=== PATIENT | female | born 1970 | race Asian ===

== ENCOUNTER 2023-04-02 17:12 | Emergency (ER) | payer MEDICARE, MEDICAID, SELFPAY ==
[2023-04-02 17:43] VITALS: BP 112/72; PULSE 63; RESP 18; TEMP 36.1; O2SAT 99; BMI 25.2
--- NOTE | 2023-04-02 18:53 | ED.GENADULT ---
HPI - General Adult General Chief complaint: Laceration/Wound Stated complaint: left finger laceration Time Seen by Provider: 04/02/23 18:35 Source: patient Mode of arrival: ambulatory Limitations: no limitations History of Present Illness HPI narrative: 52-year-old female coming in today complaining of laceration that she sustained to her 2nd digit on the left hand last night. It occurred when she was using a saw. Unsure of her last tetanus shot. She can come in the last 24 hours she was hoping it would close on its own. Tetanus was updated in 2017. Related Data Home Medications Medication Instructions Recorded Confirmed carbidopa 25 mg-levodopa 100 mg 1 tab PO QID 04/02/23 04/02/23 tablet dicyclomine 10 mg capsule 10 mg PO Q6H PRN 04/02/23 04/02/23 ferrous sulfate 325 mg (65 mg 325 mg PO DAILY 04/02/23 04/02/23 iron) tablet,delayed release pantoprazole 40 mg tablet,delayed 40 mg PO DAILY 04/02/23 04/02/23 release sertraline 100 mg tablet 100 mg PO DAILY 04/02/23 04/02/23 Allergies Allergy/AdvReac Type Severity Reaction Status Date / Time methylphenidate Allergy Mild Verified 04/02/23 17:48 [From Ritalin] pemoline [From Cylert] Allergy Mild Vomiting Verified 04/02/23 17:48 haldol AdvReac Unknown parkinsons Uncoded 04/02/23 17:47 pt Review of Systems Status of ROS: Reports: 6 or more systems reviewed and unremarkable except as noted in History and below PFSH PFS Social History Smoking Status: Never smoker Do you use any of these nicotine containing products: None Second hand tobacco smoke exposure: Yes How often do you have a drink containing alcohol: monthly or less How many standard drinks containing alcohol do you have on a typical day: 1 or 2 How often do you have six or more drinks on one occasion: Never AUDIT-C Alcohol total score: 1 Non-prescribed substance use: denies use service: No Exam Narrative: Exam Narrative: Well-nourished well-developed patient in no acute distress. Baseline tremor. Alert and oriented x3. Answers questions appropriately. Patient speaks in full sentences without needing to catch her breath. HEENT: Normocephalic atraumatic. Pupils are equally round reactive to light. Extraocular muscles are intact. Conjunctivae are moist without any icterus noted. Moist mucous membranes. Extremities: Patient has a laceration to the dorsal surface of the pointer finger on the left-hand that crosses the PIP. Laceration goes through the epidermis through the subcutaneous tissue and she partially severed her extensor tendon over the PIP. It appears that about a 3rd of the tendon was severed. She does have complete range of motion with full flexion and extension of that finger with out difficulty. Const: Vital Signs, click to edit/add: Vital Signs - 24 hr 04/02/23 17:43 04/02/23 18:57 Temperature 97 F L 98.1 F Pulse Rate [Pulse Oximeter] 63 59 L Respiratory Rate 18 18 Blood Pressure [Ri ght Upper Arm] 112/72 Pulse Oximetry 99 98 Oxygen Delivery Me thod Room Air Room Air Course Course Hospital Course: A digital block was performed with lidocaine and the wound was explored, irrigated and clean. I did put in 1 suture with 4 0 Vicryl at the edge of her tendon to bring that 3rd of the tendon back together. Then we placed skin sutures with 3-0 Ethilon with great skin approximation and no complications. Vital Signs Vital signs: Initial Vital Signs Temperature 97 F L 04/02/23 17:43 Temperature Source Temporal Artery Scan 04/02/23 17:43 Pulse Rate 63 04/02/23 17:43 Respiratory Rate 18 04/02/23 17:43 Blood Pressure 112/72 04/02/23 17:43 Blood Pressure Mean 85 04/02/23 17:43 Blood Pressure Position Supine 04/02/23 17:43 Pulse Oximetry 99 04/02/23 17:43 Oxygen Delivery Method Room Air 04/02/23 17:43 Vital Signs Temperature 97 F L 04/02/23 17:43 Pulse Rate 63 04/02/23 17:43 Respiratory Rate 18 04/02/23 17:43 Blood Pressure 112/72 04/02/23 17:43 Pulse Oximetry 99 04/02/23 17:43 Oxygen Delivery Method Room Air 04/02/23 17:43 Temperature 98.1 F 04/02/23 18:57 Pulse Rate 59 L 04/02/23 18:57 Respiratory Rate 18 04/02/23 18:57 Blood Pressure 112/72 04/02/23 17:43 Pulse Oximetry 98 04/02/23 18:57 Oxygen Delivery Method Room Air 04/02/23 18:57 Medical Decision Making MDM Narrative Medical decision making narrative: 52-year-old female laceration to the finger. Sutured per above. Discussed wound hygiene, signs and symptoms of infection, reasons to return for follow-up and suture removal in approximately 1 week. Given the fact that the laceration occurred approximately 24 hours ago and it was indeed very deep, I did opt to put her on antibiotics at this time. Discharge Plan Discharge Clinical Impression: Laceration Patient Disposition: Home, Self-Care Condition: Improved Additional Instructions: Keep finger clean and dry. Okay to shower like you normally would, however do not soak the finger such as swimming or doing dishes. Watch for signs of infection which include redness of the finger or drainage of pus from the laceration. If this occurs follow-up with your doctor right away or return to the ER. Sutures should be removed in approximately 1 week-make an appointment with your primary care provider for suture removal. Wear finger splint or a bandage that in circles the whole finger and prevents bending at that joint at all times so that you do not rip out the sutures by accidentally bending your finger. Prescriptions: No Action sertraline 100 mg tablet 100 mg PO DAILY pantoprazole 40 mg tablet,delayed release (DR/EC) 40 mg PO DAILY ferrous sulfate 325 mg (65 mg iron) tablet,delayed release (DR/EC) 325 mg PO DAILY carbidopa-levodopa 25-100 mg tablet 1 tab PO QID dicyclomine 10 mg capsule 10 mg PO Q6H PRN Stand Alone Forms: [employer] Info Instructions
[2023-04-02 18:57] VITALS: PULSE 59; RESP 18; TEMP 36.7; O2SAT 98
--- NOTE | 2023-04-02 19:24 | ED.NURSE ---
last tetanus 06/23/2017.
--- NOTE | 2023-04-02 19:40 | ED.NURSE ---
wound was dressed with bacitracin, band aid and tube gauze. did give a finger splint and paper tape.
== END 2023-04-02 19:50 | disposition home or self-care (01) ==
PROVIDERS: Emergency Provider Family Medicine
DX: S61.211A Laceration without foreign body of left index finger without damage to nail, initial encounter (principal); W27.0XXA Contact with workbench tool, initial encounter
CPT/HCPCS: 12001; 99283; 99284

== ENCOUNTER 2024-02-02 17:42 | Emergency (ER) | payer MEDICARE, MEDICAID, SELFPAY ==
[2024-02-02 17:49] VITALS: BP 146/80; PULSE 72; RESP 18; TEMP 36.4; O2SAT 100; BMI 21.9
--- NOTE | 2024-02-02 18:22 | ED.EYEPROB ---
HPI - Eye Problem General Chief complaint: Eye Problems Stated complaint: eye complaint Time Seen by Provider: 02/02/24 17:47 History of Present Illness HPI Narrative: This 53-year-old female comes in with bilateral eye irritation, right greater than left. She states that she was using a hair gel a couple days ago and got some of it in her eyes. She does not report any other foreign object. She states that her eyes became more irritated the next morning. She states that her eyes feel better if she keeps her eyes closed. She is frequently rubbing her eyes. Related Data Home Medications ?Medication ?Instructions ?Recorded ?Confirmed carbidopa 25 mg-levodopa 100 mg 1 tab PO QID 04/02/23 04/02/23 tablet dicyclomine 10 mg capsule 10 mg PO Q6H PRN 04/02/23 04/02/23 ferrous sulfate 325 mg (65 mg 325 mg PO DAILY 04/02/23 04/02/23 iron) tablet,delayed release pantoprazole 40 mg tablet,delayed 40 mg PO DAILY 04/02/23 04/02/23 release sertraline 100 mg tablet 100 mg PO DAILY 04/02/23 04/02/23 Previous Rx's ?Medication ?Instructions ?Recorded ketorolac 0.4 % eye drops 1 drp ophthalmic (eye) QID #5 mL 02/02/24 polymyxin B sulfate 10,000 1 drp ophthalmic (eye) Q3H 7 days 02/02/24 unit-trimethoprim 1 mg/mL eye drops #10 mL Allergies Allergy/AdvReac Type Severity Reaction Status Date / Time methylphenidate Allergy Mild Verified 04/02/23 17:48 [From Ritalin] pemoline [From Cylert] Allergy Mild Vomiting Verified 04/02/23 17:48 haldol AdvReac Unknown parkinsons Uncoded 04/02/23 17:47 pt Review of Systems Status of ROS: Reports: 10 or more systems reviewed and unremarkable except as noted in History and below Narrative: Constitutional: No fevers, no weight gain or loss. Eyes: Tearing from both eyes. Eye pain that is worse when her eyes are open. HENT: No congestion, no sore throat, no ear pain. Cardiovascular: No chest pain, no palpitations. Respiratory: No shortness of breath, no wheezes, no cough. Gastrointestinal: No abdominal pain, no vomiting, no diarrhea. Genitourinary: No dysuria, no hematuria. Musculoskeletal: Normal range of motion. Skin: No rashes, no pruritis. Neurological: No dizziness, weakness, sensory change, speech change. Endo/Heme/Allergies: No bruising or bleeding. No polydipsia. Pysch: no suicidality, no anxiety, no insomnia. All other systems reviewed and are negative. [facility] Social History Smoking Status: Never smoker Do you use any of these nicotine containing products: None Second hand tobacco smoke exposure: Yes How often do you have a drink containing alcohol: monthly or less How many standard drinks containing alcohol do you have on a typical day: 1 or 2 How often do you have six or more drinks on one occasion: Never AUDIT-C Alcohol total score: 1 Non-prescribed substance use: denies use service: No Exam Narrative: Exam Narrative: Constitutional: Well-developed, well-nourished, no acute distress. HEENT: Normocephalic, atraumatic. Both eyes school air are injected, right greater than left. No purulent discharge. Neck: Normal range of motion. Nontender. Supple. Heart: Intact distal pulses. Lungs: No chest discomfort. No wheezes, rhonchi, or rales. Abdomen: Nontender. Back: Normal range of motion. Extremities: Normal range of motion. No injury. Skin: Intact. No rash. Warm. No erythema or pallor. Neurologic: No altered sensation. No weakness. Alert and oriented. Psychiatric: No suicidality. No anxiety or depression. No insomnia. Nursing notes and vitals signs are reviewed. Const: Vital Signs, click to edit/add: Vital Signs - 24 hr 02/02/24 17:49 Temperature 97.5 F L Pulse Rate [Pulse Oximeter] 72 Respiratory Rate 18 Blood Pressure [Ri ght Upper Arm] 146/80 H Pulse Oximetry 100 Oxygen Delivery Me thod Room Air Course Vital Signs Vital signs: Initial Vital Signs Temperature 97.5 F L 02/02/24 17:49 Temperature Source Temporal Artery Scan 02/02/24 17:49 Pulse Rate 72 02/02/24 17:49 Pulse Rhythm Regular 02/02/24 17:49 Respiratory Rate 18 02/02/24 17:49 Blood Pressure 146/80 H 02/02/24 17:49 Blood Pressure Mean 102 02/02/24 17:49 Blood Pressure Position Sitting 02/02/24 17:49 Pulse Oximetry 100 02/02/24 17:49 Oxygen Delivery Method Room Air 02/02/24 17:49 Vital Signs Temperature 97.5 F L 02/02/24 17:49 Pulse Rate 72 02/02/24 17:49 Respiratory Rate 18 02/02/24 17:49 Blood Pressure 146/80 H 02/02/24 17:49 Pulse Oximetry 100 02/02/24 17:49 Oxygen Delivery Method Room Air 02/02/24 17:49 Temperature 97.5 F L 02/02/24 17:49 Pulse Rate 72 02/02/24 17:49 Respiratory Rate 18 02/02/24 17:49 Blood Pressure 146/80 H 02/02/24 17:49 Pulse Oximetry 100 02/02/24 17:49 Oxygen Delivery Method Room Air 02/02/24 17:49 MDM - Eye Problem MDM Narrative Medical decision making narrative: This patient comes in with irritation to both eyes and states that she got some hair gel into her eyes a couple days ago. She is frequently rubbing her eyes. There is no purulent discharge. I did administer tetracaine for anesthesia and then did a eye exam of both eyes using magnification. There is no evidence of foreign object or obvious corneal ulceration. She is frequently rubbing her eyes and likely has some corneal abrasion secondary to that. I advised her to avoid this as much as possible and did prescribe Polytrim ophthalmic and ketorolac ophthalmic solutions. I advised her to follow-up with an eye clinic or eye physician if not improving or return if worsening. Discharge Plan Discharge Clinical Impression: Corneal abrasion Patient Disposition: Home, Self-Care Condition: Stable Additional Instructions: Use medications as prescribed. Avoid rubbing of the eyes. Follow-up with order management specialist or nurse educator if not improving or return if worsening. Prescriptions: New polymyxin B sulf-trimethoprim 10,000 unit- 1 mg/mL drops 1 drp ophthalmic (eye) Q3H 7 Days Qty: 10 0RF Rx Instructions: while awake; do not exceed 6 doses in 24 hours ketorolac 0.4 % drops 1 drp ophthalmic (eye) QID Qty: 5 0RF No Action sertraline 100 mg tablet 100 mg PO DAILY pantoprazole 40 mg tablet,delayed release (DR/EC) 40 mg PO DAILY ferrous sulfate 325 mg (65 mg iron) tablet,delayed release (DR/EC) 325 mg PO DAILY carbidopa-levodopa 25-100 mg tablet 1 tab PO QID dicyclomine 10 mg capsule 10 mg PO Q6H PRN Follow Up/Referrals: Provider,Not a Local [Primary Care Provider] - Stand Alone Forms: [employer] Info Instructions
== END 2024-02-02 18:39 | disposition home or self-care (01) ==
LOC: ED 18:29
PROVIDERS: Emergency Provider Emergency Medicine Emergency Medical Services
DX: S05.02XA Injury of conjunctiva and corneal abrasion without foreign body, left eye, initial encounter (principal); S05.01XA Injury of conjunctiva and corneal abrasion without foreign body, right eye, initial encounter
CPT/HCPCS: 99283; 99284

== ENCOUNTER 2025-03-24 09:52 | Emergency (ER) | payer MEDICARE, MEDICAID, SELFPAY ==
--- OUTSIDE RECORDS SUMMARY | 2025-02-14 15:45 | XMS_ITS | Encounter Summary ---
Author Organization [place] Address [facility] [place] [address] Care Team Providers Care Patient Registration Rep Name Role Phone Priti Morfin APRN RECORD RETRIEVAL SPECIALIST Primary Care Provide r Timothy Rice MD Unavailable Priti Morfin APRN RECORD RETRIEVAL SPECIALIST Unavailable [phone] Alvina Romano DO Unavailable Ashish Augustine MD Unavailable Priti Morfin APRN RECORD RETRIEVAL SPECIALIST Unavailable Naldo Alexander MD Unavailable Ashish Augustine MD Unavailable Morales Negrete MD [facility]available [facility] Un[facility] Reason for Visit * Reason Comments RECHECK Encounter Details Date Type Department Care Team (Late st Contact Info) Description 02/14/2025 3:45 PM CDT Office Visit [facility] [place] [address] [facility] 3[address] [place] [address] Ashish Augustine MD [address] [facility] [address] [place] [address] Parkinsonism, unspecified Parkinsonism type (H) (Primary Dx); Dorsalgia, unspecified Social History Tobacco Use Types Packs/Day Years Used Date Smoking Tobacco: Never Smokeless Tobacco: Never Alcohol Use Standard Drinks/Week Comments Not Currently 0 (1 standard drink = 0.6 oz pur e alcohol) rare Social Connection and Isolation Panel [NHANES] A nswer Date Recorded Frequency of Communication with Friends and Fami ly Not on file 01/15/2025 How often do you get together with friends or re latives? Twice a week 01/15/2025 Attends [employer] Services Not on file 01/15 Active Member of Clubs or Organizations Not on f ile 01/15/2025 Attends Club or Organization Meetings Not on mendez e 01/15/2025 Marital Status Not on file 01/15/2025 PHQ-2 Answer Date Recorded PHQ-2 Score 3 01/16/2025 [facility] - Occupational Stress Questionnaire Answer Date Recorded Do you feel stress - tense, restless, nervous, or anxious, or unable to sleep at night because your mind is troubled all the time - these days? To some extent 01/15/2025 Exercise Vital Sign Answer Date Recorde d On average, how many days pe r week do you engage in moderate to strenuous exercise (like a brisk walk)? 5 days 01/15/2025 On average, how many minutes do you engage in exercise at this level? 40 min 01/15/2025 Adolescent Education Answer Date Record ed Getting School Help Needed Not on file 04/21 Food Insecurity Answer Date Recorded Within the past 12 months, d id you worry that your food would run out before you got money to buy more? No 01/15/2025 Within the past 12 months, d id the food you bought just not last and you didn t have money to get more? No 01/15/2025 Housing Stability Answer Date Recorded Do you have housing? (Housin g is defined as stable permanent housing and does not include staying outside in a car, in a tent, in an abandoned building, in an overnight senior living, or couch-surfing.) Yes 01/15/2025 Are you worried about losing your housing? No 01/15/2025 Financial Resource Strain Answer Date R ecorded Within the past 12 months, h ave you or your family members you live with been unable to get utilities (heat, electricity) when it was really needed? No 01/15/2025 Transportation Needs Answer Date Record ed Within the past 12 months, h as lack of transportation kept you from medical appointments, getting your medicines, non-medical meetings or appointments, work, or from getting things that you need? No 01/15/2025 Interpersonal Safety Answer Date Record ed Do you feel physically and e motionally safe where you currently live? Yes 11/16/2023 Within the past 12 months, h ave you been hit, slapped, kicked or otherwise physically hurt by someone? No 11/16/2023 Within the past 12 months, h ave you been humiliated or emotionally abused in other ways by your partner or ex-partner? No 11/16/2023 Comments No Sex and Gender Information Value Date Recorded Sex Assigned at Female 05/05/2022 5:57 PM CDT Legal Sex Female 3:52 AM SEISMIC PROSPECTING OBSERVER Gender Identity Female 05/05/2022 5:57 PM CDT Sexual Orientation Don't know 10/25/2022 3: 34 PM CDT Sexual Orientation Pansexual 10/25/2022 3: 34 PM CDT Occupation Industry Job Start Date Job End Date Not on file Not on file Not on file Not on file documented as of this encounter Last Filed Vital Signs Vital Sign Reading Time Taken Comments Blood Pressure 118/74 02/14/2025 4:06 PM CDT Pulse 66 02/14/2025 4:06 PM CDT Temperature - - Respiratory Rate 12 02/14/2025 4:06 PM CDT Oxygen Saturation 98% 02/14/2025 4:06 PM CDT Inhaled Oxygen Concentration - - Weight 58.1 kg (128 lb) 02/14/2025 4:06 PM CDT Height 158.8 cm (5' 2.5) 02/14/2025 4:06 PM CDT Body Mass Index 23.04 02/14/2025 4:06 PM CDT documented in this encounter Patient Instructions * Patient Instructions* Arcelia Torres MD - 02/14/2025 3:45 PM CDT 1- We recommend that you continue to take Carbidopa/Levodopa 25-100 mg 1 tablet 6 times per day, every 2 hours. Please message us if you are taking more of this medication. 2- We will start you on a medication called Rasaligine 0.5 mg once daily for 2 weeks, then 1 mg once daily for 2 week. If you are tolerating medication at 1 mg, we will continue to 1 mg tablet once daily. Please avoid the Adderall while taking Rasagiline as there is a drug interaction with these two medications. documented in this encounter Progress Notes * Arceila Torres MD - 02/14/2025 3:45 PM CDT Department of Neurology Movement Disorders Division Return Patient Visit Patient: Ramiro Aguilera : 1970 Date of Visit: February 11, 2025 PCP: Priti Morfin APRN CNP Referring provider: Davide CC: PD follow up MsFan Jonju is a 54 year old right-handed female with history of narcolepsy with cataplexy who presents to movement disorder clinic for parkinsonism follow up. Last visit was 06/2024 at which time she reported good control of PD symptoms but still had wearing off tremor. PD meds were not changed at that time. Interval history: Main complaint: wants to talk about DBS for PD tremor control and dyskinesias. Feels internal and external tremors are worse when wearing off occurs. Sometimes has head tics and arm movements at end of a dose. These movements improve within 30 mins of a dose. Has been taking one tablet every 1.5-2 hours (first dose whenever wake up, times variable); takes it 6 times or more per day depending on how long away for during day with variable sleep schedule. Medication regimen recommended at last visit: 12PM 3PM 6PM 9PM QHS 2-3hrs after QHS CD/LD (25-100mg) 1 1 1 1 1 prn Sertraline (100mg) 1 Adderall XR (10mg) PRN (rarely) Sodium Oxybate 4mL 4mL PRN All others negative except as listed above. Pertinent movement disorders- specific ROS listed above.No significant medical diagnoses, hospitalizations, surgeries, or medications started since last visit. Past Medical History: Diagnosis Date Chronic gastritis GI recommends a repeat EGD 2021 to 2023. Depression Depressive disorder 2004 Neurologically Depressed not clinically depressed lack of dopamine H pylori ulcer 2003 treated wit ABX Intractable constipation Left ovarian cyst Low back pain Menorrhagia Narcolepsy Parkinson's disease Parkinson's disease (H) Scarring, keloid Supraventricular tachycardia 2007 inappropriate sinus tachycardia, sp ablation 2007, 2008 Syncope Past Surgical History: Procedure Laterality Date APPENDECTOMY OPEN with colectomy BACK SURGERY 10/2007 BREAST SURGERY 1998 CARDIAC SURGERY 2007 2 sinus tachycardia surgeries CHOLECYSTECTOMY 08/13/2008 CHOLECYSTECTOMY, LAPOROSCOPIC 2008 with stent placements COLONOSCOPY ESOPHAGOSCOPY, GASTROSCOPY, DUODENOSCOPY (EGD), COMBINED N/A 11/29/2021 Procedure: ESOPHAGOGASTRODUODENOSCOPY, WITH BIOPSY AND POLYPECTOMY; Surgeon: Naldo Alexander MD; Location: [facility] OR H ABLATION SVT 2007, 2009 Ablation Times 2 HEAD & NECK SURGERY 2000 Neck surgery infected muscle came up positive with staph. remove lymph node behind ear HERNIA REPAIR HYSTERECTOMY TOTAL ABDOMINAL 11/17/2009 with Removal of right ovary LAPAROTOMY EXPLORATORY 11/10/2011 Procedure:LAPAROTOMY EXPLORATORY; Exploratory Laparotomy, Lysis of Adhesions, Left Salpingo Oophorectomy, Revision of Scar, Abdominal Hernia Repair; Surgeon:LORENZO BEVERLY; Location:[facility] OR OTHER SURGICAL HISTORY 06/04/1999 Breast Surgery Mastectomy-for fibrocystic disease OTHER SURGICAL HISTORY Breast Surgery Reduction Procedure OTHER SURGICAL HISTORY 04/18/2005 Ear Surgery Eustachian Tube-[place] OTHER SURGICAL HISTORY 04/18/2001 ENT Surgical Result - Neck Mass OTHER SURGICAL HISTORY 07/09/2008 Total Abdominal Colectomy-Dr. Olga Arcos RESECTION ABDOMINAL PERINEAL 2007 colon removed SIGMOIDOSCOPY FLEXIBLE N/A 04/19/2021 Procedure: SIGMOIDOSCOPY, FLEXIBLE; Surgeon: Randy Cuellar MD; Location: [facility] OR SIGMOIDOSCOPY FLEXIBLE N/A 09/13/2021 Procedure: SIGMOIDOSCOPY, FLEXIBLE; Surgeon: Naldo Alexander MD; Location: [facility] OR [facility] BOWEL TO BOWEL ANASTOMOSIS 2009 Current Outpatient Medications: amphetamine-dextroamphetamine (ADDERALL XR) 10 MG 24 hr capsule, Take 1 capsule (10 mg) by mouth asneeded., Disp: 90 capsule, Rfl: 0 baclofen (LIORESAL) 20 MG tablet, Take 1 tablet (20 mg) by mouth 2 times daily., Disp: 90 tablet, Rfl: 3 carbidopa-levodopa (SINEMET) 25-100 MG tablet, Take 1 tablet by mouth 4 times daily., Disp: 360 tablet, Rfl: 3 dicyclomine (BENTYL) 10 MG capsule, Take 1 capsule (10 mg) by mouth 4 times daily as needed (abdominal pain) (Patient not taking: Reported on 01/16/2025), Disp: 360 capsule, Rfl: 4 estradiol (VAGIFEM) 10 MCG TABS vaginal tablet, Place 1 tablet (10 mcg) vaginally twice a week., Disp: 24 tablet, Rfl: 3 ferrous sulfate (FE TABS) 325 (65 Fe) MG EC tablet, Take 1 tablet (325 mg) by mouth daily, Disp: 90tablet, Rfl: 3 Shante, Zingiber officinalis, (SHANTE ROOT PO), Take by mouth., Disp: , Rfl: pantoprazole (PROTONIX) 40 MG EC tablet, Take 1 tablet (40 mg) by mouth daily., Disp: 90 tablet, Rfl: 3 sertraline (ZOLOFT) 100 MG tablet, Take 1 tablet (100 mg) by mouth daily., Disp: 90 tablet, Rfl: 3 SODIUM OXYBATE PO, 4mL at bedtime and 2mL after about 3 hrs, Disp: , Rfl: valACYclovir (VALTREX) 500 MG tablet, Take 1 tablet (500 mg) by mouth daily., Disp: 90 tablet, Rfl:3 Allergies Allergen Reactions Adhesive Tape Rash and Blisters Reaction from steri-strips and butterfly as well Hydroactive Dressings Rash Meperidine Anaphylaxis Tegaderm Transparent Dressing (Informational Only) Blisters Ciprofloxacin Swelling Lip swelling, arm and wrist pain Crabs [Crustaceans] Swelling Imitation crab Darvocet [Propoxyphene N-Apap] Nausea and Nausea and Vomiting A500 Tabs Can take with Zofran Demerol Pt is on MAOI Inhibitor Food Other (See Comments) Onion Migraine Haloperidol And Related [Haloperidol And Related] Parkinson's reaction Hay [Antihistamines, Chlorpheniramine-Type] Hydrocodone-Acetaminophen Liquid Adhesive Methylphenidate Nausea and Vomiting Other [No Clinical Screening - See Comments] Butterfly strips causes blistering and extreme itching Peaches [Charlton] Nausea and Vomiting Pemoline Nausea Percocet [Oxycodone-Acetaminophen] Nausea and Vomiting Can take with Zofran Propoxyphene Prunus Persica Nausea and Vomiting Ritalin [Methylphenidate Derivatives] Nausea Wound Dressing Adhesive Gum Gphgjt-Nnsllw-Aayz-Alcohol Family History Adopted: Yes Family history unknown: Yes Social History: She reports that she has never smoked. She has never used smokeless tobacco. She reports that she does not currently use alcohol. She reports current drug use. Drug: Marijuana. Parkinson's Disease Assessment: Part I 1.1 Cognitive impairment: 0: Normal: No cognitive impairment. 1.2 Hallucinations and psychosis: 0: Normal: No hallucinations or psychotic behaviour. 1.3 Depressed mood: 2: Mild: Depressed mood that is sustained over days, but without interference with normal activities and social interactions. 1.4 Anxious mood: 0: Normal: No anxious feelings. 1.5 Apathy: 3: Moderate: Apathy interferes with most activities and social interactions. 1.6 Features of DDS: 0: Normal: No problems present. 1.7 Sleep problems: 4: Severe: I usually do not sleep for most of the night. 1.8 Daytime sleepiness: 4: Severe: I often fall asleep when I should not. For example, while eatingor talking with other people. 1.9 Pain and other sensations: 4: Severe: These feelings stop me from doing things or being with other people. 1.10 Urinary problems: 0: Normal: No urine control problems. 1.11 Constipation problems: 1: Slight: I have been constipated. I use extra effort to move my bowels. However, this problem does not disturb my activities or my being comfortable. 1.12 Light headedness on standin: Normal: No dizzy or foggy feelings. 1.13 Fatigue: 4: Severe: Fatigue stops me from doing things or being with people. Total: , previous 12 Part II 12/30/2022 3:40 PM UPDRS EDL Scale 2.1 Speech 2 2.2 Salivation 0 2.3 Chew & Swallow 1 2.4 Eating 0 2.5 Dressing 0 2.6 Hygiene 0 2.7 Handwriting 0 2.8 Hobbies etc. 0 2.9 Turn in bed 0 2.10 Tremor 1 2.11 Stand from chair 0 2.12 Walking & Balance 1 2.13 Freezing 0 MDS-UPDRS II Total Score 5 PHYSICAL EXAM: BP 118/74 (BP Location: Right arm, Patient Position: Sitting, Cuff Size: Adult Regular) Pulse 66 Resp 12 Ht 1.588 m (5' 2.5) Wt 58.1 kg (128 lb) LMP (LMP Unknown) SpO2 98% BMI 23.04 kg/m?? NEURO: Last dose of medication 3:30 pm 07/12/2024 4:00 PM 02/14/2025 5:00 PM UPDRS Motor Scale Time: 16:20 17:02 Medication On On R Brain DBS: None None L Brain DBS: None None Dyskinesia (LID) No No Did LID interfere No No Speech 1 1 Facial Expression 0 1 Rigidity Neck 1 -- Rigidity RUE 1 0 Rigidity LUE 0 0 Rigidity RLE 0 0 Rigidity LLE 0 0 Finger Taps R 1 1 Finger Taps L 0 1 Hand Mvt R 1 1 Hand Mvt L 1 1 Pron-/Supinate R 0 0 Pron-/Supinate L 0 0 Toe Tap R 0 1 Toe Tap L 0 1 Leg Agility R 0 2 Leg Agility L 1 2 Arise From Chair 0 0 Gait 0 1 Gait Freezing 0 0 Postural Stability 0 0 Posture 0 0 Global Spont Mvt 1 1 Postural Tremor RUE 1 1 Postural Tremor LUE 1 1 Kinetic Tremor RUE 1 1 Kinetic Tremor LUE 1 2 Rest Tremor RUE 0 0 Rest Tremor LUE 0 0 Rest Tremor RLE 0 0 Rest Tremor LLE 0 0 Rest Tremor Lip/Jaw 1 1 Rest Tremor Constancy 1 1 Total Right 5 7 Total Left 4 8 Axial Total 3 Total 14 Patient declined testing neck rigidity Gait: reduced arm swing bilaterally but otherwise normal base gait, normal turn, no freezing and shuffling. ASSESSMENT: 54 year old right-handed female with history of narcolepsy with cataplexy who presents to movement disorder clinic for PD follow up. Today, patient wanted to discuss being evaluated for DBS surgery. On exam, there is little bradykinesias, mild postural and kinetic tremor. There is no rest tremor orpostural instability. Diagnosis of Parkinson's is in question given minimal progression of symptomsand current clinical presentation. Given her reported positive effect of Sinemet and no side effects, she wanted to continue taking this medication. We discussed starting low dose of Rasagiline in addition to current dose of Sinemet to try to provide further symptom relief. We urged her to not takemore than the maximum 6 times and to contact us via [email or web address] if she were to self titrate her medication in the future. Since she is also prescribed Adderall which has a reported side effect with Rasagiline, we spoke with her about this. She reported that she rarely takes Adderall for her ADHD and she said she would not take Adderall with Rasagiline. PLAN: - Continue to take Carbidopa/Levodopa 25-100 mg one tablet no more than 6 times per day - Started up titration Rasagiline 0.5 mg once daily Follow up in 6 months. Patient seen and examined with attending Dr. Davide Torres MD Movement Disorders Fellow * Ashish Augustine MD - 02/14/2025 3:45 PM CDT J reported worsening of end-of dose effects: internal tremor, tremor, and dyskinesias, leading to shortening of dose interval to sometimes as little as 2 hours, though with variation, and a total of about 6 tabs carbidopa-levodopa per day. The beginning of the appointment was during an ON phase, without those symptoms, and lasted past the next dose time without appearance of those sypmptoms, but J demonstrated the tremor and dyskinesias, the tremor as a cross- body flexed/abducted posture of theRUE, with trembling, and the latter as a series of head rotation jerks. I repeated Dr. Torres's exam, confirming it: Affect was as usual guarded though today more than usually so. At the time I did the e xam, there was still no unambiguous parkinsonism, and the tremor observed was in the bilateral UE, postural, and associated with a tight-appearing posture, not inconsistent with parkinsonism, but at least equally with essential, physiological, cocontraction tremor. J came to the appointment having concluded that deep brain stimulation surgery was the next step in treatment, and, understandably, being unfamiliar with the process, felt this was a straightforward matter. I explained that potentialDBS patients undergo a lengthy evaluation which doesn't always culminate in surgery, even in comparatively simple cases, and discussed at some length the fact that this case is not simple, since the symptoms and the disease course are not typical for ordinary Parkinson's, and that other neurologists who have seen her in the past have noted this as well. I emphasized that DBS does not generally have good outcomes for people whose parkinsonism is not typical, nor is the risk of complications usually justified in such cases. I also expressed concern about shortening the dose interval without consulting us on the grounds that, in Parkinson's, this approach to wearing-off, while effective in theshort term, could lead to escalating total daily levodopa dose, aggravating wearing-off and dyskinesias in the longer term. It did develop that her total daily dose, despite the shortened interval, was about 6 tabs per day, which seemed reassuring, and sustainable. We discussed possible supplementary medications, some of which she's tried in the past, including transdermal rotigotine, rasagiline,and entacapone. Some of these have been tried in the past, and it's my impression from the record, that in at least some cases, they were discontinued because they were no longer needed and Antonio was able to get along OK without them, rather than lack efficacy or side effects. Antonio recalled rotigotine as having caused some skin irritation, and also recalled having taken rasagiline at one time. I favoredentacapone, but Antonio preferred rasagiline, which does accomplish the goal of taking action in recognition of a real problem, but with a single dose per day, i.e. without the pill burden of entacapone, so we agreed on that plan. Given the presence among her listed medications of Adderall, which is problematic for rasagiline, we went back into the room and had a separate conversation about this. Antonio said she took Adderall infrequently, e.g. for extra energy in the evenings, could do without it, by substituting cafeinated drinks, and promised definitely not to take Adderall while on rasagiline. The appointment started late, ended later: time this date, with patient, reviewing records, and documenting: >0.75h. Ashish Augustine PhD, MD documented in this encounter Plan of Treatment Upcoming Encounters Date Type Department Care Team (Late st Contact Info) Description 07/18/2025 11:30 AM SEISMIC PROSPECTING OBSERVER Office Visit [facility] [address] [place] [phone] Ashish Augustine MD [address] [place] [id number] documented as of this encounter Visit Diagnoses Diagnosis Parkinsonism, unspecified Parkinsonism type (H)- Primary Dorsalgia, unspecified documented in this encounter Additional Health Concerns Assessment Noted Time PHQ-9 Depression Total Score: 13 025 9:44 PM CDT documented as of this encounter Care Teams Patient Registration Rep Relationship Specialty Start Date End Date Priti Morfin APRN CNP PCP - General 07/21/11 Timothy Rice MD Student in organized health care education/training program 05/08/15 Priti Morfin APRN RECORD RETRIEVAL SPECIALIST Nurse Practitioner Nurse Practitioner 08/19/16 [place] [address] [place] [address] Gastroenterology 04/30/19 Ashish Augustine MD [address] [facility] [address] [place], [place] [id number] Neurology 07/17/19 Priti Morfin APRN RECORD RETRIEVAL SPECIALIST Assigned PCP 08/30/20 Naldo Alexander MD [address] [facility] [address] [place], [place] [address] Gastroenterology 01/28/21 Ashish Augustine MD [address] [facility] [address] [place], [place] [phone] Assigned Neuroscience Provider 02/04/23 Morales Negrete MD [address] [place] [address] Hospitalist Internal Medicine - Pediatrics 02/26/24 Shanel Guadarrama PA-C [address] [facility] [address] [place] [address] Physician Country Manager Dermatology 03/18/24 documented as of this encounter
--- OUTSIDE RECORDS SUMMARY | 2025-03-24 09:56 | XMS_ITS | Encounter Summary ---
Author Organization [place] Address [facility] [place] [address] Care Team Providers Care Railroad Operator Name Role Phone Priti Morfin APRN ENROBING MACHINE FEEDER Primary Care Provide r Timothy Rice MD Unavailable [phone] Priti Morfin APRN ENROBING MACHINE FEEDER Unavailable Alvina Romano DO Unavailable [phone] Ashish Augustine MD Unavailable Priti Morfin APRN ENROBING MACHINE FEEDER Unavailable Naldo Alexander MD Unavailable Ashish Augustine MD Unavailable [phone] Morales Negrete MD Unavailable [phone] PavelShanel cuellar PA-C Unavailable Encounter Details Date Type Department Care Team (Late st Contact Info) Description 02/19/2025 [facility] Only [facility] Internal Medicine [place] [address] [facility] 4th [place] [address] Priti Morfin APRN ENROBING MACHINE FEEDER 909 [place] [address] Social History Tobacco Use Types Packs/Day Years [...] re latives? Twice a week 01/15/2025 Attends Mormonism Services Not on file 01/15 Active Member of Clubs or Organizations Not on f ile 01/15/2025 Attends Club or Organization Meetings Not on mendez e 01/15/2025 Marital Status Not on file 01/15/2025 PHQ-2 Answer Date Recorded PHQ-2 Score 3 01/16/2025 [facility] - Occupational Stress Questionnaire Answer Date Recorded [...] in an abandoned building, in an overnight mcc, or couch-surfing.) Yes 01/15/2025 Are you worried [...] PM CDT Legal Sex Female 3:52 AM TEAM ASSEMBLER Gender Identity Female 05/05/2022 5:57 PM CDT Sexual Orientation Don't know 10/25/2022 3: 34 PM CDT Sexual Orientation Pansexual 10/25/2022 3: 34 PM CDT Occupation Industry Job Start Date Job End Date Not on file Not on file Not on file Not on file documented as of this encounter Plan of Treatment Upcoming Encounters Date Type Department Care Team (Late st Contact Info) Description 07/18/2025 11:30 AM TEAM ASSEMBLER Office Visit [facility] [address] [place] [address] Ashish Augustine MD [address] [place] [id number] documented as of this encounter Visit Diagnoses Not on filedocumented in this encounter Additional Health Concerns Assessment Noted Time PHQ-9 Depression Total Score: 13 025 9:44 PM CDT documented as of this encounter Care Teams Railroad Operator Relationship Specialty Start Date End Date Priti Morfin APRN ENROBING MACHINE FEEDER PCP - General 07/21/11 Timothy Rice MD Student in organized health care education/training program 05/08/15 Priti Morfin APRN ENROBING MACHINE FEEDER Nurse Practitioner Nurse Practitioner 08/19/16 [place] [address] [place] [address] Gastroenterology 04/30/19 Ashish Augustine MD 420 [facility] 486 [place], [place] [address] Neurology 07/17/19 Priti Morfin APRN ENROBING MACHINE FEEDER Assigned PCP 08/30/20 Naldo Alexander MD 420 [facility] 486 [place] [address] Gastroenterology 01/28/21 Ashish Augustine MD 420 [facility] 486 [place] [address] Assigned Neuroscience Provider 02/04/23 Morales Negrete MD [address] [place] [address] Hospitalist Internal Medicine - Pediatrics 02/26/24 Shanel Guadarrama PA-C 420 [facility] 98 [place], [place] [address] Physician Pst Manager Dermatology 03/18/24 documented as of this encounter
--- OUTSIDE RECORDS SUMMARY | 2025-03-24 09:56 | XMS_ITS | Encounter Summary ---
Author Organization [place] Address [facility] [place] [address] Care Team Providers Care Glove Turner Name Role Phone Priti Morfin APRN OPERATION AGENT Primary Care Provide r Timothy Rice MD Unavailable Priti Morfin APRN OPERATION AGENT Unavailable Alvina Romano DO Unavailable Ashish Augustine MD Unavailable [phone] Priti Morfin APRN OPERATION AGENT Unavailable Naldo Alexander MD Unavailable Ashish Augustine MD Unavailable Morales Negrete MD Unavailable Pavelprotestant deaconess hospitalShanel zhao PA-C Unavailable Encounter Details Date Type Department Care Team (Late st Contact Info) Description 03/21/2025 [facility] Internal Medicine [place] 909 [facility] 4th [place] [address] Priti Morfin APRN OPERATION AGENT 909 [place] [address] Social History Tobacco Use Types [...] re latives? Twice a week 01/15/2025 Attends Alevism Services Not on file 01/15 Active Member of Clubs or Organizations Not on f ile 01/15/2025 Attends Club or Organization Meetings Not on mendez e 01/15/2025 Marital Status Not on file 01/15/2025 PHQ-2 Answer Date Recorded PHQ-2 Score 3 01/16/2025 [facility] - Occupational Stress Questionnaire Answer Date Recorded [...] in an abandoned building, in an overnight fpc, or couch-surfing.) Yes 01/15/2025 Are you worried [...] PM CDT Legal Sex Female 3:52 AM TOOL REPAIRER Gender Identity Female 05/05/2022 5:57 PM CDT [...] st Contact Info) Description 07/18/2025 11:30 AM TOOL REPAIRER Office Visit [facility] Neurology Clinic [address] [place] [address] Ashish Augustine MD [address] [place] [address] documented as of this encounter Visit Diagnoses Not on filedocumented in this encounter Additional Health Concerns Assessment Noted Time PHQ-9 Depression Total Score: 13 025 9:44 PM CDT documented as of this encounter Care Teams Glove Turner Relationship Specialty Start Date End Date Priti Morfin APRN OPERATION AGENT PCP - General 07/21/11 Timothy Rice MD Student in organized health care education/training program 05/08/15 Priti Morfin APRN OPERATION AGENT Nurse Practitioner Nurse Practitioner 08/19/16 [place] [address] [place] [address] Gastroenterology 04/30/19 Ashish Augustine MD 420 [facility] 486 [place], [place] [address] Neurology 07/17/19 Priti Morfin APRN OPERATION AGENT Assigned PCP 08/30/20 Naldo Alexander MD 420 [facility] [address] [place] [address] Gastroenterology 01/28/21 Ashish Augustine MD 420 [facility] [address] [place], [place] [address] Assigned Neuroscience Provider 02/04/23 Morales Negrete MD [address] [place] [address] Hospitalist Internal Medicine - Pediatrics 02/26/24 Shanel Guadarrama PA-C 420 [facility] 98 [place], [place] [address] Physician Safety Net Maker Dermatology 03/18/24 documented as of this encounter
--- OUTSIDE RECORDS SUMMARY | 2025-03-24 09:56 | XMS_ITS | Encounter Summary ---
Author Organization [place] Address [facility] [place] [address] Care Team Providers Care Chef Under Name Role Phone Priti Morfin APRN CLIENT SERVICE EXECUTIVE Primary Care Provide r Timothy Rice MD Unavailable Priti Morfin APRN CLIENT SERVICE EXECUTIVE Unavailable [phone] Alvina Romano DO Unavailable [phone] Ashish Augustine MD Unavailable [phone] Priti Morfin APRN CLIENT SERVICE EXECUTIVE Unavailable [phone] Naldo Alexander MD Unavailable [phone] Ashish Augustine MD Unavailable [phone] Morales Negrete MD Unavailable PavelShanel cuellar PA-C Unavailable [phone] Encounter Details Date Type Department Care Team (Late st Contact Info) Description 01/23/2025 MyC Medical Advice [facility] Internal Medicine [place] [address] [facility] 4th [place] [address] Risa Lyman, RN Social History Tobacco Use Types Packs/Day Years [...] re latives? Twice a week 01/15/2025 Attends Buddhist Services Not on file 01/15 Active Member of Clubs or Organizations Not on f ile 01/15/2025 Attends Club or Organization Meetings Not on mendez e 01/15/2025 Marital Status Not on file 01/15/2025 PHQ-2 Answer Date Recorded PHQ-2 Score 3 01/16/2025 [facility] - Occupational Stress Questionnaire Answer [...] Answer Date Recorded Do you have housing? (Yesenia g is defined as stable permanent housing and does not include staying outside in a car, in a tent, in an abandoned building, in an overnight fci, or couch-surfing.) Yes 01/15/2025 Are you worried [...] PM CDT Legal Sex Female 3:52 AM SCIENTIFIC WRITER Gender Identity Female 05/05/2022 5:57 PM CDT [...] st Contact Info) Description 07/18/2025 11:30 AM SCIENTIFIC WRITER Office Visit [facility] Neurology Clinic [address] [address] Ashish Augustine MD [address] [place] [phone] documented as of this encounter Visit Diagnoses Not on filedocumented in this encounter Additional Health Concerns Assessment Noted Time PHQ-9 Depression Total Score: 13 025 9:44 PM CDT documented as of this encounter Care Teams Chef Under Relationship Specialty Start Date End Date Priti Morfin APRN CLIENT SERVICE EXECUTIVE PCP - General 07/21/11 Timothy Rice MD Student in organized health care education/training program 05/08/15 Priti Morfin APRN CLIENT SERVICE EXECUTIVE Nurse Practitioner Nurse Practitioner 08/19/16 [place] [address] [facility] [address] Gastroenterology 04/30/19 Ashish Augustine MD 420 [facility] 486 [place] [address] MD Neurology 07/17/19 Priti Morfin APRN CLIENT SERVICE EXECUTIVE Assigned PCP 08/30/20 Nadlo Alexander MD [address] [address] Gastroenterology 01/28/21 Ashish Augustine MD [address] [address] Assigned Neuroscience Provider 02/04/23 Morales Negrete MD [address] [place] [address] Hospitalist Internal Medicine - Pediatrics 02/26/24 Shanel Guadarrama PA-C 420 [facility] 98 [place], [place] [address] Physician Big Data Developer Dermatology 03/18/24 documented as of this encounter
--- OUTSIDE RECORDS SUMMARY | 2025-03-24 09:56 | XMS_ITS | Encounter Summary ---
Author Organization [place] Address [facility]0 [facility] [place] [address] Care Team Providers Care Labor Gang Supervisor Name Role Phone Priti Morfin APRN PRESS SETTER Primary Care Provide r Timothy Rice MD Unavailable [phone] Priti Morfin APRN PRESS SETTER Unavailable [phone] Alvina Romano DO Unavailable Ashish Augustine MD Unavailable [phone] Priti Morfin APRN PRESS SETTER Unavailable Naldo Alexander MD Unavailable [phone] Ashish Augustine MD Unavailable [phone] Morales Negrete MD Unavailable [facility] Unavailable [phone] Encounter Details Date Type Department Care Team (Latest Contact Info) Description 02/14/2025 Travel Social History Tobacco Use Types Packs/Day Years [...] Answer Date Recorded PHQ-2 Score 3 01/16/2025 [facility] - Occupational Stress Questionnaire Answer Date [...] an abandoned building, in an overnight senior care, or couch-surfing.) Yes 01/15/2025 Are you worried [...] PM CDT Legal Sex Female 3:52 AM INSPECTOR TYPE Gender Identity Female 05/05/2022 5:57 PM CDT Sexual Orientation Don't know 10/25/2022 3: 34 PM CDT Sexual Orientation Pansexual 10/25/2022 3: 34 PM CDT Occupation Industry Job Start Date Job End Date Not on file Not on file Not on file Not on file documented as of this encounter Plan of Treatment Upcoming Encounters Date Type Department Care Team ([facility] st Contact Info) Description 07/18/2025 11:30 AM INSPECTOR TYPE Office Visit [facility] Neurology Clinic [address] [address] Ashish Augustine MD [address] [place] [address] [phone] documented as of this encounter Visit Diagnoses Not on filedocumented in this encounter Additional Health Concerns Assessment Noted Time PHQ-9 Depression Total Score: 13 025 9:44 PM CDT documented as of this encounter Care Teams Labor Gang Supervisor Relationship Specialty Start Date End Date Priti Morfin APRN PRESS SETTER PCP - General 07/21/11 Timothy Rice MD Student in organized health care education/training program 05/08/15 Priti Morfin APRN PRESS SETTER Nurse Practitioner Nurse Practitioner 08/19/16 [place] [address] [place] [address] Gastroenterology 04/30/19 Ashish Augustine MD 420 [facility] 486 [place] [address] MD Neurology 07/17/19 Priti Morfin APRN PRESS SETTER Assigned PCP 08/30/20 Naldo Alexander MD 420 [facility] 486 [place], [place] [address] Gastroenterology 01/28/21 Ashish Augustine MD [address] [place] [address] 486 [place], [place] [address] Assigned Neuroscience Provider 02/04/23 Morales Negrete MD [address] [place], [place] [address] Hospitalist Internal Medicine - Pediatrics 02/26/24 Shanel Guadarrama PA-C 420 [facility] 98 [place], [place] [address] Physician Concrete Paving Machine Operator Dermatology 03/18/24 documented as of this encounter
--- OUTSIDE RECORDS SUMMARY | 2025-03-24 09:56 | XMS_ITS | Encounter Summary ---
Author Organization [place] Address [address] [place] [address]. [place] [address] Care Team Providers Care Applications Programmer Analyst Name Role Phone Pirti Morfin APRN UNDER CUTTER Primary Care Provide r Timothy Rice MD Unavailable [phone] Priti Morfin APRN UNDER CUTTER Unavailable Alvina Romano DO Unavailable Ashish Augustine MD Unavailable Priti Morfin APRN UNDER CUTTER Unavailable Naldo Alexander MD Unavailable Ashish Augustine MD Unavailable [phone] Morales Negrete MD Unavailable [facility] Unavailable [phone] Reason for Visit * Reason Onset Date Comments Medication Question 01/22/2025 Call Back 01/22/2025 Encounter Details Date Type Department Care Team (Late st Contact Info) Description 01/22/2025 Telephone [facility] Internal Medicine [place] 909 [facility] 4th [place] [address] Priti Morfin APRN UNDER CUTTER 909 [place] [address] Medication Question; Call Back Social History Tobacco Use Types Packs/Day Years [...] re latives? Twice a week 01/15/2025 Attends Adventism Services Not on file 01/15 Active Member of Clubs or Organizations Not on f ile 01/15/2025 Attends Club or Organization Meetings Not on mendez e 01/15/2025 Marital Status Not on file 01/15/2025 PHQ-2 Answer Date Recorded PHQ-2 Score 3 01/16/2025 [facility] - Occupational [...] in an abandoned building, in an overnight half-way, or couch-surfing.) Yes 01/15/2025 Are you worried [...] PM CDT Legal Sex Female 3:52 AM BEHAVIORAL HEALTH PROFESSIONAL Gender Identity Female 05/05/2022 5:57 PM CDT Sexual Orientation Don't know 10/25/2022 3: 34 PM CDT Sexual Orientation Pansexual 10/25/2022 3: 34 PM CDT Occupation Industry Job Start Date Job End Date Not on file Not on file Not on file Not on file documented as of this encounter Miscellaneous Notes * Telephone Encounter - Risa Lyman RN - 01/23/2025 10:40 AM CDT I need to verify this with the pt before responding to them. I sent Ibetor message to the pt. * Telephone Encounter - Brenda Juárez - 01/22/2025 2:19 PM CDT Health Call Center Phone Message May a detailed message be left on voicemail: no Reason for Call: Other: [facility] is requesting a call back to discuss all active prescriptions prescribed by from Priti. Please review and call back to discuss at [phone]. Action Taken: Other: PCC Travel Screening: Not Applicable Date of Service: documented in this encounter Plan of Treatment Upcoming Encounters Date Type Department Care Team (Late st Contact Info) Description 07/18/2025 11:30 AM BEHAVIORAL HEALTH PROFESSIONAL Office Visit [facility] Neurology Clinic [address] 3rd [place] [address] Ashish Augustine MD [address] [address] documented as of this encounter Visit Diagnoses Not on filedocumented in this encounter Additional Health Concerns Assessment Noted Time PHQ-9 Depression Total Score: 13 025 9:44 PM CDT documented as of this encounter Care Teams Applications Programmer Analyst Relationship Specialty Start Date End Date Priti Morfin APRN UNDER CUTTER PCP - General 07/21/11 Timothy Rice MD Student in organized health care education/training program 05/08/15 Priti Morfin APRN UNDER CUTTER Nurse Practitioner Nurse Practitioner 08/19/16 [place] [address] [place] [address] Gastroenterology 04/30/19 Ashish Augustine MD [address] [address] Neurology 07/17/19 Priti Morfin APRN UNDER CUTTER Assigned PCP 08/30/20 Naldo Alexander MD 420 [facility] 486 [place] [address] Gastroenterology 01/28/21 Ashish Augustine MD 420 [facility] 486 [place] [address] Assigned Neuroscience Provider 02/04/23 Morales Negrete MD [address] [place] [address] [address] [place] [address] Hospitalist Internal Medicine - Pediatrics 02/26/24 Shanel Guadarrama PA-C 420 [facility] 98 [place] [address] Physician Band Splicer Dermatology 03/18/24 documented as of this encounter
--- OUTSIDE RECORDS SUMMARY | 2025-03-24 09:56 | XMS_ITS | Encounter Summary ---
Author Organization [place] Address formerly [facility]0 [facility] [place] [address] Care Team Providers Care Fence Maker Name Role Phone Priti Morfin APRN MECHANIC CHIEF Primary Care Provide r Timothy Rice MD Unavailable Priti Morfin APRN MECHANIC CHIEF Unavailable Alvina Romano DO Unavailable Ashish Augustine MD Unavailable Priti Morfin APRN MECHANIC CHIEF Unavailable Naldo Alexander MD Unavailable Ashish Augustine MD Unavailable [phone] Morales Negrete MD Unavailable [phone] Shanel Guadarrama PA-C Unavailable [phone] Encounter Details Date Type Department Care Team (Late st Contact Info) Description 03/21/2025 MyC Medical Advice [facility] Neurology Clinic [place] 909 [facility] 3rd [place] [address] Ashish Augustine MD [address] [place] [address] 486 [place] [address] Social History Tobacco Use Types [...] re latives? Twice a week 01/15/2025 Attends Adventist Services Not on file 01/15 Active Member of Clubs or Organizations Not on f ile 01/15/2025 Attends Club or Organization Meetings Not on mendez e 01/15/2025 Marital Status Not on file 01/15/2025 PHQ-2 Answer Date Recorded PHQ-2 Score 3 01/16/2025 [facility] ional Health - Occupational [...] in an abandoned building, in an overnight long term, or couch-surfing.) Yes 01/15/2025 Are you worried [...] PM CDT Legal Sex Female 3:52 AM GLASS CHECKER Gender Identity Female 05/05/2022 5:57 PM CDT [...] st Contact Info) Description 07/18/2025 11:30 AM GLASS CHECKER Office Visit [facility] Neurology Clinic [address] [place] [address] Ashish Augustine MD [address] [place] [phone] documented as of this encounter Visit Diagnoses Not on filedocumented in this encounter Additional Health Concerns Assessment Noted Time PHQ-9 Depression Total Score: 13 025 9:44 PM CDT documented as of this encounter Care Teams Fence Maker Relationship Specialty Start Date End Date Priti Morfin APRN MECHANIC CHIEF PCP - General 07/21/11 Timothy Rice MD Student in organized health care education/training program 05/08/15 Priti Morfin APRN MECHANIC CHIEF Nurse Practitioner Nurse Practitioner 08/19/16 [place] [address] [place] [address] Gastroenterology 04/30/19 Ashish Augustine MD 420 [facility] 486 [place], [place] [address] Neurology 07/17/19 Priti Morfin APRN MECHANIC CHIEF Assigned PCP 08/30/20 Naldo Alexander MD [address] [place] [address] 486 [place] [address] Gastroenterology 01/28/21 Ashish Augustine MD [address] [place] [address] 486 [place] [address] Assigned Neuroscience Provider 02/04/23 Morales Negrete MD [address] [place] [address] Hospitalist Internal Medicine - Pediatrics 02/26/24 Shanel Guadarrama PA-C 420 [facility] 98 [place] [address] Physician Dust Brush Assembler Dermatology 03/18/24 documented as of this encounter
--- OUTSIDE RECORDS SUMMARY | 2025-03-24 09:57 | XMS_ITS | Clinical Summary ---
Author Organization [facility] Address [address] [place] [address] Care Team Providers Care Design Drafter Name Role Phone Priti Morfin HEAVY EQUIPMENT SALES ASSOCIATE Primary Care Provider [phone] Allergies Active Allergy Reactions Criticality Noted Date Comments Pemoline 12/13/2007 Propoxyphene-Acetaminophe n Nausea And Vomiting 12/13/2007 Meperidine Anaphylaxis 12/13/2007 Haloperidol Other - Describe In Comment Field 06/23/2017 Dopamine cezar Oxycodone-Acetaminophen Nausea And Vomiting Methylphenidate Analogues Nausea And Vomiting 0 12/13/2007 Adhesive 11/28/2010 Medications CARBIDOPA-LEVO DOPA 25 MG-100 MG HALF TAB Take half tablet every two hours as directed Active AZILECT 1 MG TAB take 1 tablet (1 mg) by oral route once daily Active IBUPROFEN 800 MG TAB take 1 tablet (800 mg) by oral route 3 times per day with food Active ONDANSETRON 4 MG TAB, RAPID DISSOLVE take 2 tablets (8 mg) and place on top of the tongue where it will dissolve, then swallow by oral route every 8 hours for 2 days 15 tablets 0 9 Active acetaminophen- codeine, 300-30 mg, (TYLENOL #3) 300-30 mg tablet Take 1-2 tablets by mouth every 4 hours if needed for Pain. Max acetaminophen dose: 4000mg in 24 hrs. 15 tablet 0 0 Active cholecalcifero l (VITAMIN D) 2,000 unit capsule Take 1 capsule by mouth 2 times daily. 1 Active gabapentin (NEURONTIN) 300 mg capsule Take 600 mg by mouth 3 times daily. Active FERROUS FUMARATE/DOCUS ATE NA (IRON ORAL) Take 324 mg by mouth 2 times daily. 1 Active SODIUM OXYBATE (XYREM ORAL) Take 225 g by mouth at bedtime. 1 Active Active Problems Problem Noted Date Diagnosed Date Cholecystitis 08/11/2008 S/P colectomy 08/11/2008 Intractable constipation 05/10/2008 Overview (05/10/2008): Rule out early bowel obstruction Paralysis agitans 12/25/2007 Lumbago 12/25/2007 Depressive disorder, not elsewhere classified Immunizations Immunization Administration Dates Next Due Tdap 06/23/2017 Social History Tobacco Use Types Packs/Day Years Used Date Smoking Tobacco: Never Assessed Comments No Sex and Gender Information Value Date Recorded Sex Assigned at Not on file Legal Sex Female 7:28 AM RECREATION PROFESSOR Gender Identity Not on file Sexual Orientation Not on file Obstetrics History Last Filed Vital Signs Vital Sign Reading Time Taken Comments Blood Pressure 141/83 06/23/2017 6:58 PM RECREATION PROFESSOR Pulse 64 06/23/2017 6:58 PM RECREATION PROFESSOR Temperature 36.8 C (98.3 F) 06/23/2017 6:58 PM RECREATION PROFESSOR Respiratory Rate 16 06/23/2017 6:58 PM RECREATION PROFESSOR Oxygen Saturation 98% 06/23/2017 6:58 PM RECREATION PROFESSOR Inhaled Oxygen Concentration - - Weight 63.5 kg (140 lb) 06/23/2017 6:58 PM RECREATION PROFESSOR Height 160 cm (5' 3) 06/23/2017 6:58 PM RECREATION PROFESSOR Body Mass Index 24.8 06/23/2017 6:58 PM RECREATION PROFESSOR Plan of Treatment Health Maintenance Due Date Last Done Comments Depression screening for age 12+ 1982 HIV for age 15-65 1985 BMI (ht and wt on same day) for age 18+ 1988 Hepatitis C screening for age 18-79 1988 Hepatitis B series for 19+ ( 1 of 3 - 19+ 3-dose series) 1989 Pap test for age 21-65 12/09/1991 Colonoscopy through age 75 12/09/2015 Lipids for age 45-75 12/09/2015 Mammogram for age 45-75 12/09/2015 Pneumococcal series for age 50+ (1 of 1 - PCV) 021 Zoster (shingles) series for age 50+ (1 of 2) 12/09/19 21 COVID-19 vaccine series (1 - 2023- season) 4 Influenza Vaccine (#1) 2025 Tetanus booster 06/23/2027 06/23/2017 Medical Devices Implanted Type Area School Photographer Device Identifier Shelf Expiration Date Model / Serial / Lot [id number] hips Canclls 1.0-9.5mm Strl Freeze Dried [[id number]] Implanted:Qty: 1 on 12/25/2007 at [facility] Explanted:at [facility] (Quantity not on file) Bone Implants Spine Allosource 07/10/2012 [id number] / [id number] / [id number] one Canclls Crushed 30cc [[id number]] Implanted:Qty: 1 on 12/25/2007 at [facility] Explanted:at [facility] (Quantity not on file) Spine Allosource 07/02/2012 [id number] / [id number] / [id number] Precision 16x26 Fz [[id number]] Implanted:Qty: 1 on 12/25/2007 at [facility] Explanted:at [facility] (Quantity not on file) Spine [employer] 08/30/2011 [id number] / [id number] / Kit Infuse Sm - [id number] Implanted:Qty: 1 on 12/25/2007 at [facility] Spine SOFAMOR DANEK [id number]# / / [id number] B Screw Legacy 5.5x40 Titnm M/A [id number] - [id number] Implanted:Qty: 2 on 12/25/2007 at [facility] Spine SOFAMOR DANEK [id number]# / / Screw Legacy 6.5x35 Titnm M/A [id number] - [id number] Implanted:Qty: 2 on 12/25/2007 at [facility] Spine SOFAMOR DANEK [id number]# / / Zana 5.5x40 Prebent Cdh - [id number] Implanted:Qty: 2 on 12/25/2007 at [facility] Spine SOFAMOR DANEK [id number]# / / Screw Set Break-Off Hex Maishams - [id number] Implanted:Qty: 4 on 12/25/2007 at [facility] Spine SOFAMOR DANEK [id number]# / / Insurance MEDICARE PART A HB ONLY MEDICARE PART B HB ONLY MEDICARE PB ONLY [facility] Advance Directives * Full Code (Latest Code Status on File) Date Activated Date Inactivated Comments 08/13/2008 6:55 PM 08/14/2008 5:00 PM * Full Code Date Activated Date Inactivated Comments 08/13/2008 1:36 PM 08/13/2008 6:55 PM * Full Code Date Activated Date Inactivated Comments 08/11/2008 8:34 PM 08/13/2008 1:36 PM * Full Code Date Activated Date Inactivated Comments 07/09/2008 9:03 PM 07/17/2008 9:20 PM * Full Code Date Activated Date Inactivated Comments 07/09/2008 2:15 PM 07/09/2008 9:03 PM Care Teams Design Drafter Relationship Specialty Start Date End Date Priti Morfin NP PCP - General 05/09/08
--- OUTSIDE RECORDS SUMMARY | 2025-03-24 09:57 | XMS_ITS | Encounter Summary ---
Author Organization [facility] Address [address] [place] [address]. [place] [address] Care Team Providers Care College Tutor Name Role Phone Priti Morfin APRN MANAGER STATISTICAL PROGRAMMING Primary Care Provide r Timothy Rice MD Unavailable Prince Simpson MD, Kathleen Unavailable Unavailab Priti Reddy APRN MANAGER STATISTICAL PROGRAMMING Unavailable [phone] Alvina Romano DO Unavailable [phone] Ashish Augustine MD Unavailable [phone] Ashish Augustine MD Unavailable Priti Morfin APRN MANAGER STATISTICAL PROGRAMMING Unavailable [phone] Naldo Aleaxnder MD Unavailable [phone] Naldo Alexander MD Unavailable [phone] Daniel Roberto MD Unavailable [phone] Ashish Augustine MD Unavailable Morales Negrete MD Unavailable [phone] Shanel Guadarrama PA-C Unavailable [phone] Encounter Details Date Type Department Care Team (Late st Contact Info) Description 06/10/2022 [facility] [address] [place] [address] Jolene Parrish CMA Social History Tobacco Use Types Packs/Day Years Used Date Smoking Tobacco: Never Smokeless Tobacco: Former Alcohol Use Standard Drinks/Week Comments Yes 0 (1 standard drink = 0.6 oz pur e alcohol) rare PHQ-2 Answer Date Recorded PHQ-2 Score 0 01/26/2021 Comments No Sex and Gender Information Value Date Recorded Sex Assigned at Female 05/05/2022 5:57 PM CDT Legal Sex Female 3:52 AM SPEECH PATHOLOGY ASSISTANT Gender Identity Female 05/05/2022 5:57 PM CDT Sexual Orientation Don't know 10/25/2022 3: 34 PM CDT Sexual Orientation Pansexual 10/25/2022 3: 34 PM CDT Occupation Industry Job Start Date Job End Date Not on file Not on file Not on file Not on file COVID-19 Exposure Response Date Recorded In the last 10 days, have yo u been in contact with someone who was confirmed or suspected to have Coronavirus/COVID-19? No / Unsure 06/13/2022 12:17 PM SPEECH PATHOLOGY ASSISTANT documented as of this encounter Plan of Treatment Upcoming Encounters Date Type Department Care Team (Late st Contact Info) Description 07/18/2025 11:30 AM SPEECH PATHOLOGY ASSISTANT Office Visit [facility] [address] [place] [address] Ashish Augustine MD [address] [place] [address] documented as of this encounter Visit Diagnoses Not on filedocumented in this encounter Additional Health Concerns Assessment Noted Time PHQ-9 Depression Total Score: 6 03/26/20 19 6:35 PM CDT documented as of this encounter Care Teams College Tutor Relationship Specialty Start Date End Date Priti Morfin APRN MANAGER STATISTICAL PROGRAMMING PCP - General 07/21/11 Timothy Rice MD Student in organized health care education/training program 05/08/15 Jessica Morrison MD Internal Medicine 07/08/16 09/21/23 Priti Morfin APRN MANAGER STATISTICAL PROGRAMMING Nurse Practitioner Nurse Practitioner 08/19/16 [place] [address] [place] [address] Gastroenterology 04/30/19 Ashish Augustine MD [address] [facility] [address] [place] [address] Neurology 07/17/19 Ashish Augustine MD [address] [facility] [address] [place] [address] Assigned Neuroscience Provider 05/22/20 10/28/22 Priti Morfin APRN MANAGER STATISTICAL PROGRAMMING Assigned PCP 08/30/20 Naldo Alexander MD [address] [facility] [address] [place] [address] Gastroenterology 01/28/21 Naldo Alexander MD [address] [facility] [address] [place] [address] Assigned Gastroenterology Provider 05/09/21 05/21/24 Daniel Roberto MD [address] [facility] [address] [place] [address] Assigned Surgical Provider 12/10/22 06/21/24 Ashish Augustine MD 420 [facility] [address] [place], [place] [address] Assigned Neuroscience Provider 02/04/23 Morales Negrete MD [address] [facility] [address] [place], [place] [address] Hospitalist Internal Medicine - Pediatrics 02/26/24 Shanel Guadarrama PA-C 420 [facility] 98 [place], [place] [address] Physician Product Introduction Manager Dermatology 03/18/24 documented as of this encounter
--- OUTSIDE RECORDS SUMMARY | 2025-03-24 09:57 | XMS_ITS | Encounter Summary ---
Author Organization [facility] Address [address] [place] [address]. [place] [address] Care Team Providers Care Urologic Nurse Name Role Phone Priti Morfin OPTIMIZATION MANAGER LONG LINES OPERATOR Primary Care Provide r Timothy Rice MD Unavailable [phone] Prince Simpson MD, Kathleen Unavailable Unavailab Priti Morfin APRN LONG LINES OPERATOR Unavailable [phone] Alvina Romano DO Unavailable [phone] Ashish Augustine MD Unavailable sAhish Augustine MD Unavailable Priti Morfin APRN LONG LINES OPERATOR Unavailable [phone] Naldo Alexander MD Unavailable [phone] Naldo Alexander MD Unavailable [phone] Daniel Roberto MD Unavailable [phone] Ashish Augustine MD Unavailable [phone] Morales Negrete MD Unavailable [phone] Shanel Guadarrama PA-C Unavailable [phone] Encounter Details Date Type Department Care Team (Late st Contact Info) Description 10/26/2022 [facility] Internal Medicine [place] [id number] [facility] [address] [place] [address] Priti Morfin OPTIMIZATION MANAGER LONG LINES OPERATOR [address] [place] [address] Social History Tobacco Use Types Packs/Day Years Used Date Smoking Tobacco: Never Smokeless Tobacco: Former Alcohol Use Standard Drinks/Week Comments Yes 0 (1 standard drink = 0.6 oz pur e alcohol) rare PHQ-2 Answer Date Recorded PHQ-2 Score 0 01/26/2021 Comments No Sex and Gender Information Value Date Recorded Sex Assigned at Female 05/05/2022 5:57 PM CDT Legal Sex Female 3:52 AM COMFORT STATION ATTENDANT Gender Identity Female 05/05/2022 5:57 PM CDT [...] suspected to have Coronavirus/COVID-19? No / Unsure 10/25/2022 3:16 PM CDT documented as of this encounter Plan of Treatment Upcoming Encounters Date Type Department Care Team (Late st Contact Info) Description 07/18/2025 11:30 AM COMFORT STATION ATTENDANT Office Visit [facility]rology Clinic [address] [phone] Ashish Augustine MD [address] [address] documented as of this encounter Visit Diagnoses Not on filedocumented in this encounter Additional Health Concerns Assessment Noted Time PHQ-9 Depression Total Score: 6 03/26/20 19 6:35 PM CDT documented as of this encounter Care Teams Urologic Nurse Relationship Specialty Start Date End Date Priti Morfin APRN LONG LINES OPERATOR PCP - General 07/21/11 Timothy Rice MD Student in organized health care education/training program 05/08/15 Jessica Morrison MD Internal Medicine 07/08/16 09/21/23 Priti Morfin APRN LONG LINES OPERATOR Nurse Practitioner Nurse Practitioner 08/19/16 [place] [address] [place] [address] Gastroenterology 04/30/19 Ashish Augustine MD [address] [address] MD Neurology 07/17/19 Ashish Augustine MD [address] [address] Assigned Neuroscience Provider 05/22/20 10/28/22 Pirti Morfin APRN LONG LINES OPERATOR Assigned PCP 08/30/20 Naldo Alexander MD 420 [facility] [address] [place] [address] Gastroenterology 01/28/21 Naldo Alexander MD 420 [facility] [address] [place] [address] Assigned Gastroenterology Provider 05/09/21 05/21/24 Daniel Roberto MD [address] [address] Assigned Surgical Provider 12/10/22 06/21/24 Ashish Augustine MD [address] [address] Assigned Neuroscience Provider 02/04/23 Morales Negrete MD [address] [place] [address] [address], [place] [address] Hospitalist Internal Medicine - Pediatrics 02/26/24 Shanel Guadarrama PA-C [address] [place] [address] Physician Clinical Trials Specialist Dermatology 03/18/24 documented as of this encounter
--- OUTSIDE RECORDS SUMMARY | 2025-03-24 09:57 | XMS_ITS | Encounter Summary ---
Author Organization [facility] Address [facility] [place] [address] Care Team Providers Care Expert Witness Name Role Phone Priti Morfin APRN PHARMACIST Primary Care Provide r Timothy Rice MD Unavailable [phone] Prince Simpson MD, Kathleen Unavailable Unavailab Priti Reddy APRN PHARMACIST Unavailable [phone] Alvina Romano DO Unavailable [phone] Ashish Augustine MD Unavailable [phone] Ashish Augustine MD Unavailable Priti Morfin APRN PHARMACIST Unavailable [phone] Naldo Alexander MD Unavailable [phone] Naldo Alexander MD Unavailable [phone] Daniel Roberto MD Unavailable [phone] Ashish Augustine MD Unavailable [phone] Morales Negrete MD Unavailable [phone] Shanel Guadarrama PA-C Unavailable [phone] Encounter Details Date Type Department Care Team (Late st Contact Info) Description 10/19/2022 [facility] G[facility]ology Clinic [address] [place] [address] Sonja Jean Baptiste MA Social History Tobacco Use Types Packs/Day Years Used Date Smoking Tobacco: Never Smokeless Tobacco: Former Alcohol Use Standard Drinks/Week Comments Yes 0 (1 standard drink = 0.6 oz pur e alcohol) rare PHQ-2 Answer Date Recorded PHQ-2 Score 0 01/26/2021 Comments No Sex and Gender Information Value Date Recorded Sex Assigned at Female 05/05/2022 5:57 PM CDT Legal Sex Female 3:52 AM PUBLIC TRANSPORTATION INSPECTOR Gender Identity Female 05/05/2022 5:57 PM CDT [...] suspected to have Coronavirus/COVID-19? No / Unsure 10/18/2022 10:20 AM CDT documented as of this encounter Plan of Treatment Upcoming Encounters Date Type Department Care Team (Late st Contact Info) Description 07/18/2025 11:30 AM PUBLIC TRANSPORTATION INSPECTOR Office Visit [facility] Neurology Clinic [address] [place] [address] Ashish Augustine MD [address] [place] [address] documented as of this encounter Visit Diagnoses Not on filedocumented in this encounter Additional Health Concerns Assessment Noted Time PHQ-9 Depression Total Score: 6 03/26/20 19 6:35 PM CDT documented as of this encounter Care Teams Expert Witness Relationship Specialty Start Date End Date Priti Morfin APRN CNP PCP - General 07/21/11 Timothy Rice MD Student in organized health care education/training program 05/08/15 Jessica Morrison MD Internal Medicine 07/08/16 09/21/23 Priti Morfin APRN PHARMACIST Nurse Practitioner Nurse Practitioner 08/19/16 [place] [address] [place] [address] Gastroenterology 04/30/19 Ashish Augustine MD [address] [facility] [address] [place] [address] Neurology 07/17/19 Ashish Augustine MD [address] [facility] [address] [place] [address] Assigned Neuroscience Provider 05/22/20 10/28/22 Priti Morfin APRN PHARMACIST Assigned PCP 08/30/20 Naldo Alexander MD [address] [facility] [address] [address] [facility] [address] [place] [address] Gastroenterology 01/28/21 Naldo Alexander MD [address] [facility] [address] [place] [address] Assigned Gastroenterology Provider 05/09/21 05/21/24 Daniel Roberto MD [address] [facility] [address] [place] [address] Assigned Surgical Provider 12/10/22 06/21/24 Ashish Augustine MD 420 [facility] [address] [place], [place] [address] Assigned Neuroscience Provider 02/04/23 Morales Negrete MD [address] [facility] [address] [place] [address] Hospitalist Internal Medicine - Pediatrics 02/26/24 Shanel Guadarrama PA-C 420 [facility] 98 [place] [address] Physician Hog Worker Dermatology 03/18/24 documented as of this encounter
--- OUTSIDE RECORDS SUMMARY | 2025-03-24 09:57 | XMS_ITS | Clinical Summary ---
Author Organization [facility] Address [facility] [place] [address] Care Team Providers Care Drafter Tool Design Name Role Phone Priti Morfin APRN [facility] Primary Care Provide r Timothy Rice MD Unavailable Priti Morfin APRN [facility] Unavailable Alvina Romano DO Unavailable Ashish Augustine MD Unavailable Priti Morfin APRN [facility] Unavailable Naldo Alexander MD Unavailable Ashish Augustine MD Unavailable Morales Negrete MD Unavailable [phone] [facility] PA-C Unavailable Allergies Active Allergy Reactions Criticality Noted Date Comments Adhesive Tape Rash,Blisters High 09/03/2010 Reaction from steri-strips and butterfly as well Ciprofloxacin Swelling 12/05/2016 Lip swelling, arm and wrist pain Crustaceans Swelling 04/26/2017 Imitation crab Propoxyphene N-Apap Nausea,Nausea and Vomiting 09/03/2010 A500 Tabs Can take with Zofran Demerol 06/24/2009 Pt is on MAOI Inhibitor Food Other (See Comments) 11/07/2011 Onion Migraine Haloperidol And Related 04/26/2017 Parkinson's reaction Antihistamines, Chlorpheniramine-Type 06/24/2009 Hydroactive Dressings Rash High 11/07/2011 Hydrocodone-Acetaminophe n 04/30/2021 Liquid Adhesive 08/23/2016 Meperidine Anaphylaxis High 12/13/2007 Pt is on MAOI Inhibitor Methylphenidate Nausea and Vomiting 08/23/2016 No Clinical Screening - Other Allergy 11/28/2011 Butterfly strips causes blistering and extreme itching [place] Nausea and Vomiting 06/24/2009 Pemoline Nausea 12/13/2007 Oxycodone-Acetaminophen Nausea and Vomiting 01/2012 Can take with Zofran Propoxyphene 04/30/2021 Prunus Persica Nausea and Vomiting 06/24/2009 Methylphenidate Derivatives Nausea 06/24/2009 Tegaderm Transparent Dressing (Informational Only) Blisters High 11/07/2011 Wound Dressing Adhesive 08/23/2016 Gum Xwvaqs-Xnnjgi-Asdw -Alcohol Medications Sodium Oxybate 500 MG/ML SOLNIndications: Atrophic vaginitis,Dyspar eunia Take by mouth. 4mL at bedtime and 2mL after about 3 hrs Active dicyclomine (BENTYL) 10 MG capsuleIndicatio ns:Constipation, unspecified constipation type,Abdominal pain, generalized Take 1 capsule (10 mg) by mouth 4 times daily as needed (abdominal pain) 360 capsule 4 2 Active ferrous sulfate (FE TABS) 325 (65 Fe) MG EC tabletIndication s:Low iron stores Take 1 tablet (325 mg) by mouth daily 90 tablet 3 4 Active carbidopa-levodo pa (SINEMET) 25-100 MG tabletIndication s:Dorsalgia, unspecified Take 1 tablet by mouth 4 times daily. 360 tablet 3 5 Active Additional Information Patient taking differently:1 tablet Oral 4 TIMES DAILY,Pt reports taking 1 tablet every 2 hours while awake. 6 or more per day., Reported on 02/14/2025 Shante, Zingiber officinalis, (SHANTE ROOT PO) Take by mouth. Active estradiol (VAGIFEM) 10 MCG TABS vaginal tabletIndication s:Senile (atrophic) vaginitis Place 1 tablet (10 mcg) vaginally twice a week. 24 tablet 3 5 Active sertraline (ZOLOFT) 100 MG tabletIndication s:History of Parkinson's disease Take 1 tablet (100 mg) by mouth daily. 90 tablet 3 5 Active valACYclovir (VALTREX) 500 MG tabletIndication s:HSV (herpes simplex virus) infection Take 1 tablet (500 mg) by mouth daily. 90 tablet 3 5 Active baclofen (LIORESAL) 20 MG tabletIndication s:Abdominal pain, epigastric Take 1 tablet (20 mg) by mouth 2 times daily. 90 tablet 3 5 Active pantoprazole (PROTONIX) 40 MG EC tabletIndication s:Abdominal pain, epigastric Take 1 tablet (40 mg) by mouth daily. 90 tablet 3 5 Active NONFORMULARY Take 2-3 capsules by mouth daily. Dopamine Brain Food: Vitamin C, B6, Folate, B12, L-Tyrosine, TMG, L-Phenylalanine . Active rasagiline (AZILECT) 0.5 MG TABS tabletIndication s:Parkinsonism, unspecified Parkinsonism type (H) Take 0.5 mg once daily for 2 weeks, then 1 mg once daily for another 2 weeks 52 tablet 5 Active rasagiline (AZILECT) 1 MG TABS tabletIndication s:Parkinsonism, unspecified Parkinsonism type (H) Take 1 tablet (1 mg) by mouth daily. 90 tablet 3 5 Active Active Problems Patient Care Coordination No te Formatting of this note migh t be different from the original. [email or web address] Problem Noted Date Diagnosed Date Keloid scar 04/13/2016 Pain medication agreement signed 06/21/2013 Vaginismus 04/09/2012 Abdominal hernia 11/11/2011 Overview (05/01/2015): Problem list name updated by automated process. Provider to review Anemia 05/26/2011 Overview (05/01/2015): Problem list name updated by automated process. Provider to review SVT (supraventricular tachycardia) 05/26/2011 Parkinson's disease without dyskinesia, with fluctuating manifestations 05/26/2011 Narcolepsy 05/26/2011 Degeneration of lumbar or lumbosacral interverte bral disc 05/26/2011 Other symptoms referable to back 05/26/2011 Depressive disorder, not elsewhere classified Other allergy, other than to medicinal agents Somatization disorder 06/24/2009 Degenerative joint disease (DJD) of lumbar spine 06/24/2009 Resolved Problems Problem Noted Date Diagnosed Date Resolved Date Midline low back pain without sciatica 02/26/2015 08/17/2015 Pain, hand joint 05/15/2013 08/01/2013 Pierced ear infection 12/25/20122020 Pelvic mass 11/11/2011 08/14/2020 Hydrosalpinx, left 08/25/2011 Endometriosis 05/26/2011 08/14/2020 Overview (05/01/2015): Problem list name updated by automated process. Provider to review Cervical spine degeneration 08/25/2009 08/17/2015 Encounters Date Type Department Care Team Description 03/21/2025 MyC Medical Advice [facility] [address] [phone] Ashish Augustine MD 03/21/2025 MyC Medical Advice [facility] [address] [phone] Priti Morfin APRN [facility] 02/19/2025 Orders Only [facility] [address] [phone] Priti Morfin, PSYCHOLOGY TEACHER [facility] 02/14/2025 3:45 PM CDT Office Visit [facility] [address] [phone] Ashish Augustine MD Parkinsonism, unspecified Parkinsonism type (H) (Primary Dx); Dorsalgia, unspecified 02/14/2025 Travel 01/23/2025 MyC Medical Advice [facility] [address] [phone] Risa Lyman RN 01/22/2025 Telephone [facility] [address] [place] [phone] Priti Morfin APRN CNP Medication Question; Call Back 01/17/2025 11:15 AM CDT Lab [facility] [address] [phone] Abdominal pain, epigastric; Screening for diabetes mellitus; Screening for hyperlipidemia; Dysuria; Microscopic hematuria 01/17/2025 Results Follow-Up [facility] [address] [place] [phone] Priti Morfin APRN CNP Dx: Microscopic hematuria (Primary Dx) 01/16/2025 6:00 PM CDT Office Visit [facility] [address] [place] [phone] Priti Morfin APRN CNP Senile (atrophic) vaginitis (Primary Dx); History of Parkinson's disease; HSV (herpes simplex virus) infection; Abdominal pain, epigastric; Primary narcolepsy with cataplexy; Skin lesion; Dysuria; Anemia, unspecified type; Screening for diabetes mellitus; Screening for hyperlipidemia; Urinary tract infection associated with catheterization of urinary tract, unspecified indwelling urinary catheter type, initial encounter 01/16/2025 Travel 01/15/2025 Travel 12/25/2024 Telephone [facility] [address] [phone] Priti Morfin APRN CNP Refill Request from Last 3 Months Immunizations Immunization Administration Dates Next Due Hepatitis B Immunity: Titer 07/11/2016 TDAP Vaccine (Adacel) 09/09/2008 TDAP Vaccine (Boostrix) 06/23/2017 Social History Tobacco Use Types Packs/Day Years Used Date Smoking Tobacco: Never Smokeless Tobacco: Never Tobacco Cessation:Counseling Given: Not Answered Alcohol Use Standard Drinks/Week Comments Not Currently 0 (1 standard drink = 0.6 oz pur e alcohol) rare Social Connection and Isolation Panel [NHANES] A nswer Date Recorded Frequency of Communication with Friends and Fami ly Not on file 01/15/2025 How often do you get together with friends or re latives? Twice a week 01/15/2025 Attends Sikhism Services Not on file 01/15 Active Member of Clubs or Organizations Not on f ile 01/15/2025 Attends Club or Organization Meetings Not on mendez e 01/15/2025 Marital Status Not on file 01/15/2025 PHQ-2 Answer Date Recorded PHQ-2 Score 3 01/16/2025 [facility] - Occupational [...] Answer Date Recorded Do you have housing? (Dreadin g is defined as stable permanent housing and does not include staying outside in a car, in a tent, in an abandoned building, in an overnight group home, or couch-surfing.) Yes 01/15/2025 Are you worried [...] PM CDT Legal Sex Female 3:52 AM COATER OPERATOR Gender Identity Female 05/05/2022 5:57 PM CDT Sexual Orientation Don't know 10/25/2022 3: 34 PM CDT Sexual Orientation Pansexual 10/25/2022 3: 34 PM CDT Occupation Industry Job Start Date Job End Date Not on file Not on file Not on file Not on file Last Filed Vital Signs Vital Sign Reading Time Taken Comments Blood Pressure 118/74 02/14/2025 4:06 PM CDT Pulse 66 02/14/2025 4:06 PM CDT Temperature 36.9 C (98.4 F) 01/16/2025 5:36 PM CDT Respiratory Rate 12 02/14/2025 4:06 PM CDT Oxygen Saturation 98% 02/14/2025 4:06 PM CDT Inhaled Oxygen Concentration - - Weight 58.1 kg (128 lb) 02/14/2025 4:06 PM CDT Height 158.8 cm (5' 2.5) 02/14/2025 4:06 PM CDT Body Mass Index 23.04 02/14/2025 4:06 PM CDT Plan of Treatment Upcoming Encounters Date Type Department Care Team (Late st Contact Info) Description 07/18/2025 11:30 AM COATER OPERATOR Office Visit [facility] [address]rd [place] [phone] Ashish Augustine MD [address] [place] [phone] Health Maintenance Due Date Last Done Comments ADVANCE CARE PLANNING 1970 [address] COLONOGRAPHY 1970 sDNA (Cologuard) 1970 COLONOSCOPY 1980 HEPATITIS B VACCINE (2 of 3 - 19+ 3-dose series) 08/08/2016 07/11/2016 PNEUMOCOCCAL VACCINE 50+ YEARS (1 of 1 - PCV) 2020 ZOSTER VACCINE (1 of 2) 2020 FIT 01/26/2022 01/26/2021 MEDICARE ANNUAL WELLNESS VISIT 08/31/2022 08/31/2021 COVID-19 VACCINE (1 - season) 2024 INFLUENZA VACCINE (#1) 2025 ANNUAL REVIEW OF HM ORDERS 01/16/2026 01/16/2025 COLORECTAL CANCER SCREENING 09/13/2026 FLEX SIG 09/13/2026 09/13/2021, 08/31, 04/19/2021, Additional history exists DTAP/TDAP/TD VACCINE (3 - Td or Tdap) 06/23/2027 06/23/2017, 09/09/2008 DIABETES SCREENING 01/18/2028 01/17/2025, 0 01/17/2025, 01/17/2025, Additional history exists LIPID 01/17/2030 01/17/2025, 10/29, 10/25/2022 HEPATITIS C SCREENING Completed 07/11/2016, HIV SCREENING Completed 06/28/2017, 06/30, 02/23/2016 HPV TEST Discontinued 06/28/2017 PAP Discontinued 06/28/2017 PHQ-2 (once per calendar year) Completed 01/16/2025, 01/16/2025, 11/16/2023, Additional history exists HPV VACCINE (No Doses Required) Completed MENINGITIS VACCINE Aged Out No longer eligible based on patient's age to complete this topic Procedures Procedure Name Priority Date/Time Associated Diagnosis Comments ROUTINE UA WITH MICROSCOPIC REFLEX TO CULTURE Routine 01/17/2025 11:32 AM CDT Dysuria HEMOGLOBIN A1C Add-On 01/17/2025 11:27 AM CDT Microscopic hematuria Screening for diabetes mellitus LIPID REFLEX TO DIRECT LDL PANEL Routine 01/17/2025 11:27 AM CDT Screening for hyperlipidemia HEMOGLOBIN A1C Routine 01/17/2025 11:27 AM CDT Screening for diabetes mellitus COMPREHENSIVE METABOLIC PANEL Routine 01/17/2025 11:27 AM CDT Screening for diabetes mellitus CBC WITH PLATELETS Routine 01/17/2025 11 :27 AM CDT Abdominal pain, epigastric FLEXIBLE SIGMOIDOSCOPY Routine 09/13/2021 7:43 AM COATER OPERATOR FECAL COLORECTAL CANCER SCREEN FIT Routine 01/26/2021 10:00 AM CDT Encounter for screening for malignant neoplasm of intestinal tract, unspecified Balance problems HIV ANTIGEN ANTIBODY COMBO Routine 06/28/2017 5:45 PM COATER OPERATOR Screen for STD (sexually transmitted disease) PAP IMAGED THIN LAYER SCREEN Routine 06/28/2017 4:58 PM COATER OPERATOR Encounter for gynecological examination with abnormal finding H/O hysterectomy for benign disease Screen for STD (sexually transmitted disease) HPV HIGH RISK TYPES DNA CERVICAL Routine 06/28/2017 4:40 PM COATER OPERATOR H/O hysterectomy for benign disease Screen for STD (sexually transmitted disease) HEPATITIS C ANTIBODY Routine 07/11/2016 9:24 AM COATER OPERATOR Screen for STD (sexually transmitted disease) from Last 3 Months or Most Recently Relevant to Health Maintenance Results * (ABNORMAL) UA with Microscopic reflex to Culture - lab collect (01/17/2025 11:32 AM CDT) Color Urine Yellow Colorless, Straw, Light Yellow, Yellow 01/17/2025 11:50 AM CDT [facility] Appearance Urine Slightly Cloudy(A) Clear 01/17/2025 11:50 AM CDT [facility] Glucose Urine Negative Negative mg/dL 01/17/2025 11:50 AM CDT [facility] Bilirubin Urine Negative Negative 11:50 AM CDT [facility] Ketones Urine Trace(A) Negative mg/dL 01/17/2025 11:50 AM CDT [facility] Specific [place] Urine 1.029 1.003 - 1.035 01/17/2025 11:50 AM CDT [facility] Blood Urine Trace(A) Negative 01/17/2025 11:50 AM CDT [facility] pH Urine 7.0 5.0 - 7.0 01/17/2025 11:50 AM CDT [facility] Protein Albumin Urine 10(A) Negative mg/dL 01/17/2025 11:50 AM CDT [facility] Urobilinogen Urine 2.0(A) Normal mg/dL 01/17/2025 11:50 AM CDT [facility] Nitrite Urine Negative Negative 01/17/2025 11:50 AM CDT [facility] Leukocyte Esterase Urine Small(A) Negative 01/17/2025 11:50 AM CDT [facility] Mucus Urine Present(A) None Seen /LPF 01/17/2025 11:50 AM CDT [facility] RBC Urine 7(H) <=2 /HPF 01/17/2025 11:50 AM CDT [facility] WBC Urine 6(H) <=5 /HPF 01/17/2025 11:50 AM CDT [facility] Squamous Epithelials Urine 2(H) <=1 /HPF 01/17/2025 11:50 AM CDT [facility] Urine URINE SPECIMEN / Unknown Non-blood Collection / Unknown 01/17/2025 11:32 AM CDT 01/17/2025 11:33 AM CDT Narrative [facility] - 01/17/2025 11:50 AM CDT Urine Culture not indicated us Priti Morfin PSYCHOLOGY TEACHER [facility] - URINE ORDERABLE S Final Result [facility] [place] [address] [facility] 1st [place] [address] * (ABNORMAL) Lipid panel reflex to direct LDL Fasting (01/17/2025 11:27 AM CDT) Cholesterol 210(H) <200 mg/dL 01/17/2025 11:53 AM CDT [facility] Triglycerides 153(H) <150 mg/dL 01/17/2025 11:53 AM CDT [facility] Direct Measure HDL 71 >=50 mg/dL 01/17/2025 11:53 AM CDT [facility] LDL Cholesterol Calculated 108(H) <100 mg/dL 01/17/2025 11:53 AM CDT [facility] Comment:LDL calculated using the Friedewald equation. Non HDL Cholesterol 139(H) <130 mg/dL 01/17/2025 11:53 AM CDT [facility] Patient Fasting > 8hrs? No 01/17/2025 11:53 AM CDT [facility] Blood BLOOD SPECIMEN / Unknown Venipuncture / Unknown 01/17/2025 11:27 AM CDT 01/17/2025 11:27 AM CDT Narrative [facility] - 01/17/2025 11:53 AM CDT Cholesterol Desirable: < 200 mg/dL Borderline High: 200 - 239 mg/dL High: >= 240 mg/dL Triglycerides Normal: < 150 mg/dL Borderline High: 150 - 199 mg/dL High: 200-499 mg/dL Very High: >= 500 mg/dL Direct Measure HDL Female: >= 50 mg/dL Male: >= 40 mg/dL LDL Cholesterol Desirable: < 100 mg/dL Above Desirable: 100 - 129 mg/dL Borderline High: 130 - 159 mg/dL High: 160 - 189 mg/dL Very High: >= 190 mg/dL Non HDL Cholesterol Desirable: < 130 mg/dL Above Desirable: 130 - 159 mg/dL Borderline High: 160 - 189 mg/dL High: 190 - 219 mg/dL Very High: >= 220 mg/dL us Priti Morfin APRN [facility] - BLOOD ORDERABLE S Final Result [facility] [address] [facility] 1st [place] [address] * Hemoglobin A1c (01/17/2025 11:27 AM CDT) Only the most recent of2 resultswithin the time period is included. Estimated Average Glucose 114 <117 mg/dL 01/17/2025 2:53 PM CDT [facility] Hemoglobin A1C 5.6 <5.7 % 01/17/2025 2:53 PM CDT [facility] Comment: Normal <5.7% Prediabetes 5.7-6.4% Diabetes 6.5% or higher Note: Adopted from ADA consensus guidelines. Blood BLOOD SPECIMEN / Unknown Venipuncture / Unknown 01/17/2025 11:27 AM CDT 01/17/2025 11:27 AM CDT Priti Morfin APRN [facility] LAB - BLOOD ORDERABLE S Final Result [facility] [place] [facility] [address] [facility], [address] [place] [phone] * (ABNORMAL) Comprehensive metabolic panel (01/17/2025 11:27 AM CDT) Pathologist [facility] Sodium 144 135 - 145 mmol/L 01/17/2025 11:53 AM CDT [facility] Potassium 3.8 3.4 - 5.3 mmol/L 01/17/2025 11:53 AM CDT [facility] Carbon Dioxide (CO2) 28 22 - 29 mmol/L 01/17/2025 11:53 AM CDT [facility] Anion Gap 10 7 - 15 mmol/L 01/17/2025 11:53 AM CDT [facility] Urea Nitrogen 13.7 6.0 - 20.0 mg/dL 01/17/2025 11:53 AM CDT [facility] Creatinine 0.95 0.51 - 0.95 mg/dL 01/17/2025 11:53 AM CDT [facility] GFR Estimate 71 >60 mL/min/1.7 3m2 01/17/2025 11:53 AM CDT [facility] Comment:eGFR calculated us2020 CKD-EPI equation. Calcium 9.3 8.8 - 10.4 mg/dL 01/17/2025 11:53 AM CDT [facility] Chloride 106 98 - 107 mmol/L 01/17/2025 11:53 AM CDT [facility] Glucose 160(H) 70 - 99 mg/dL 01/17/2025 11:53 AM CDT [facility] Alkaline Phosphatase 56 40 - 150 U/L 01/17/2025 11:53 AM CDT [facility] AST 18 0 - 45 U/L 01/17/2025 11:53 AM CDT [facility] ALT 10 0 - 50 U/L 01/17/2025 11:53 AM CDT [facility] Protein Total 6.3(L) 6.4 - 8.3 g/dL 01/17/2025 11:53 AM CDT [facility] Albumin 4.1 3.5 - 5.2 g/dL 01/17/2025 11:53 AM CDT [facility] Bilirubin Total 0.2 <=1.2 mg/dL 01/17/2025 11:53 AM CDT [facility] Patient Fasting > 8hrs? No 01/17/2025 11:53 AM CDT [facility] Blood BLOOD SPECIMEN / Unknown Venipuncture / Unknown 01/17/2025 11:27 AM CDT 01/17/2025 11:27 AM CDT us Priti M Jonatankamp PSYCHOLOGY TEACHER [facility] LAB - BLOOD ORDERABLE S Final Result [facility] [address] [place] [address] 1st [place] [address] * CBC with platelets (01/17/2025 11:27 AM CDT) WBC Count 4.8 4.0 - 11.0 10e3/uL 01/17/2025 11:33 AM CDT [facility] RBC Count 4.25 3.80 - 5.20 10e6/uL 01/17/2025 11:33 AM CDT [facility] Hemoglobin 12.6 11.7 - 15.7 g/dL 01/17/2025 11:33 AM CDT [facility] Hematocrit 39.1 35.0 - 47.0 % 01/17/2025 11:33 AM CDT [facility] MCV 92 78 - 100 fL 01/17/2025 11:33 AM CDT [facility] MCH 29.6 26.5 - 33.0 pg 01/17/2025 11:33 AM CDT [facility] MCHC 32.2 31.5 - 36.5 g/dL 01/17/2025 11:33 AM CDT [facility] RDW 12.8 10.0 - 15.0 % 01/17/2025 11:33 AM CDT [facility] Platelet Count 194 150 - 450 10e3/uL 01/17/2025 11:33 AM CDT [facility] Blood BLOOD SPECIMEN / Unknown Venipuncture / Unknown 01/17/2025 11:27 AM CDT 01/17/2025 11:27 AM CDT us Priti Morfin APRN [facility] - BLOOD ORDERABLE S Final Result [facility] [address] [place] [address] * FLEXIBLE SIGMOIDOSCOPY (09/13/2021 7:43 AM COATER OPERATOR) [facility] [address] [place] [id number] [phone] Endoscopy Department Patient Name: Ramiro Jordan Procedure Date: 09/13/2021 7:43 AM Date of : 1970 Admit Type: Outpatient Age: 50 Room: Pro 3 Gender: Female Note Status: Finalized Attending MD: Naldo Alexander MD Total Sedation Time: Procedure: Flexible Sigmoidoscopy Indications: Gastrointestinal occult blood loss, + Pelvic floor dysfuction. positive FIT. Prior flexible sigmoidoscopy with poor prep. History of subtotal colectomy with ileo-sigmoid anastomosis. Providers: Naldo Alexander MD, Alvina Beckham Referring MD: Priti Morfin NP Requesting Provider: Priti Morfin NP Medicines: None Complications: No immediate complications. Procedure: Pre-Anesthesia Assessment: - See EPIC H and P note After obtaining informed consent, the scope was passed under direct vision. The Colonoscope was introduced through the anus and advanced to the ileo-sigmoid anastomosis. Findings: The perianal and digital rectal examinations were normal. There was evidence of a prior end-to-side ileo-colonic anastomosis in the sigmoid colon. This was patent and was characterized by friable mucosa. The anastomosis was traversed. Non-bleeding internal hemorrhoids were found during retroflexion. The hemorrhoids were small. The exam was otherwise normal throughout the examined colon. Ileum was normal. Impression: - Patent end-to-side ileo-colonic anastomosis, characterized by friable mucosa. Otherwise healthy. - Non-bleeding internal hemorrhoids. - Terminal ileum was normal. - No specimens collected. Recommendation: - Discharge patient to home (with escort). - Resume previous diet. - Continue present medications. - Return to GI clinic as previously scheduled. - Positive FIT likely related to hemorrhoids or possibly from microscopic blood loss from anastomosis. Naldo Alexander MD 09/13/2021 8:29:23 AM I was physically present for the entire viewing portion of the exam. Signature of teaching physician Naldo Alexander MD Number of Addenda: 0 Note Initiated On: 09/13/2021 7:43 AM Scope In: Scope Out: RADIOLOGY RESULTS 09/13/2021 7:43 AM COATER OPERATOR us Priti Morfin PSYCHOLOGY TEACHER [facility] PROCEDURES Final Result RADIOLOGY RESULTS * (ABNORMAL) Fecal cancer screen FIT (01/26/2021 10:00 AM CDT) Pathologist [facility] Occult Blood Scn FIT Positive(A ) NEG^Negati ve 01/26/2021 9:07 PM CDT [facility] Stool 01/26/2021 10:0 0 AM CDT 01/26/2021 5:28 PM CDT us [address] [facility] - STOOLS ORDERABLES Final Result Performing Organization Address [facility] Co de Phone Number [address] [address] * HIV Antigen Antibody Combo (06/28/2017 5:45 PM COATER OPERATOR) HIV Antigen Antibody Combo Nonreactive NR^Nonrea ctive 06/29/2017 9:46 AM COATER OPERATOR [facility] Comment:HIV-1 p24 Ag & HIV-1 /HIV-2 Ab Not Detected Blood specimen (specimen) 06/28/2017 5:45 PM COATER OPERATOR 06/28/2017 5:47 PM COATER OPERATOR us Jose Baumann MD LAB - BLOOD ORDERABLES Fin al Result Performing Organization Address City/[facility]/ZIP Co de Phone Number [address] [address] * Pap imaged thin layer screen with HPV - recommended age 30 - 65 years (select HPV order below) (06/28/2017 4:58 PM COATER OPERATOR) PAP NIL COPATH Copath Report Patient Name: RAMIRO JORDAN MR#: [id number] Specimen #: [id number] Collected: 06/28/2017 Received: 06/29/2017 Reported: 06/30/2017 16:05 Ordering Phy(s): JOSE BAUMANN For improved result formatting, select 'View Enhanced Report Format' under Linked Documents section. SPECIMEN/STAIN PROCESS: Pap imaged thin layer prep screening (Surepath, FocalPoint with guided screening) Pap-Cyto x 1, HPV ordered x 1 SOURCE: Vaginal Pap imaged thin layer prep screening (Surepath, FocalPoint with guided screening) SPECIMEN ADEQUACY: Satisfactory for evaluation. -Transformation zone component absent. CYTOLOGIC INTERPRETATION: Negative for intraepithelial lesion or malignancy Electronically signed out by: JUANI Musa (ASCP) Processed and screened at [facility] CLINICAL HISTORY: Complete Hysterectomy, Papanicolaou Test Limitations: Cervical cytology is a screening test with limited sensitivity; regular screening is critical for cancer prevention; Pap tests are primarily effective for the diagnosis/preventi on of squamous cell carcinoma, not adenocarcinomas or other cancers. TESTING LAB LOCATION: [address] [address] COLLECTION SITE: Client: [facility] Location: [facility] (B) COPATH Cytologic material (specimen) 06/28/2017 4:58 PM COATER OPERATOR 06/29/2017 1:15 PM COATER OPERATOR us Jose Baumann MD LAB - OPTIME CLINICAL SPEC IMEN Final Result COPATH * HPV High Risk Types DNA Cervical (06/28/2017 4:40 PM COATER OPERATOR) HPV 16 DNA Negative NEG^Nega tive 07/04/2017 7:40 AM COATER OPERATOR [facility] HPV 18 DNA Negative NEG^Nega tive 07/04/2017 7:40 AM COATER OPERATOR [facility] Other HR HPV Negative NEG^Nega tive 07/04/2017 7:40 AM COATER OPERATOR [facility] Final Diagnosis This patient's sample is negative for HPV DNA. 07/04/2017 7:40 AM COATER OPERATOR [facility] Comment: (Note) METHODOLOGY: The Arelis amgui 4800 system uses automated extraction, simultaneous amplification of HPV (L1 region) and beta-globin, followed by real time detection of fluorescent labeled HPV and beta globin using specific oligonucleotide probes . The test specifically identifies types HPV 16 DNA and HPV 18 DNA while concurrently detecting the rest of the high risk types (31, 33, 35, 39, 45, 51, 52, 56, 58, 59, 66 or 68). COMMENTS: This test is not intended for use as a screening device for women under age 30 with normal cervical cytology. Results should be correlated with cytologic and histologic findings. Close clinical followup is recommended. This test was developed and its performance characteristics determined by the [facility]. It has not been cleared or approved by the FDA. The laboratory is regulated under CLIA as qualified to perform high-complexity testing. This test is used for clinical purposes. It should not be regarded as investigational or for research. Specimen Description Cervical Cells 07/03/2017 9:43 AM COATER OPERATOR [facility] Comment:[id number] Vaginal swab (specimen) 06/28/2017 4:40 PM COATER OPERATOR 06/28/2017 5:07 PM COATER OPERATOR us Jose Baumann MD LAB - BLOOD ORDERABLES Fin al Result [facility] [address] [place] [address] * Hepatitis C antibody (07/11/2016 9:24 AM COATER OPERATOR) Hepatitis C Antibody Nonreactive Assay performance characteristics have not been established for newborns, infants, and children NR [facility] Blood specimen (specimen) 07/11/2016 9:24 AM COATER OPERATOR 07/11/2016 9:25 AM COATER OPERATOR us Jessica Simpson MD LAB - BLOOD ORDERABLES Fin al Result [facility] [address] [place] [address] from Last 3 Months or Most Recently Relevant to Health Maintenance Insurance [facility] [employer] [facility] [employer] Advance Directives For more information, please contact: [phone] * Full Code (Latest Code Status on File) Date Activated Date Inactivated Comments 12/25/2012 6:29 PM 12/26/2012 12:30 PM * Full Code Date Activated Date Inactivated Comments 11/12/2011 1:41 PM 12/25/2012 6:29 PM * Full Code Date Activated Date Inactivated Comments 11/10/2011 4:16 PM 11/12/2011 1:41 PM Care Teams Drafter Tool Design Relationship Specialty Start Date End Date Priti Morfin APRN [facility] PCP - General 07/21/11 Timothy Rice MD Student in organized health care education/training program 05/08/15 Priti Morfin APRN [facility] Nurse Practitioner Nurse Practitioner 08/19/16 [place] [address] [place], [place] [address] Gastroenterology 04/30/19 Ashish Augustine MD [address] [place] [address] [address] [place] [address] Neurology 07/17/19 Priti Morfin APRN [facility] Assigned PCP 08/30/20 Naldo Alexander MD [address] [facility] [address] [place] [address] Gastroenterology 01/28/21 Ashish Augustine MD [address] [facility] [address] [place] [address] Assigned Neuroscience Provider 02/04/23 Morales Negrete MD [address] [place] [address] [address] [place] [address] Hospitalist Internal Medicine - Pediatrics 02/26/24 Shanel Guadarrama PA-C [address] [facility] [address] [place] [address] Physician Throw Out Clerk Dermatology 03/18/24
--- OUTSIDE RECORDS SUMMARY | 2025-03-24 09:57 | XMS_ITS | Encounter Summary ---
Author Organization [place] Address [address] [place] [address]. [place] [address] Care Team Providers Care Train Operator Name Role Phone Priti Morfin APRN BEEKEEPER Primary Care Provide r Timothy Rice MD Unavailable [phone] Prince Simpson MD, Kathleen Unavailable Unavailab Priti Reddy APRN BEEKEEPER Unavailable [phone] Alvina Romano DO Unavailable [phone] Ashish Augustine MD Unavailable [phone] Ashish Augustine MD Unavailable [phone] Priti Morfin APRN BEEKEEPER Unavailable [phone] Naldo Alexander MD Unavailable [phone] Naldo Alexander MD Unavailable [phone] Daniel Roberto MD Unavailable [phone] Ashish Augustine MD Unavailable Morales Negrete MD Unavailable [phone] Shanel Guadarrama PA-C Unavailable [phone] Encounter Details Date Type Department Care Team (Late st Contact Info) Description 10/17/2022 [place] Medical Advice [facility] [address] [place] [address] Jesica Petersen, RN Social History Tobacco Use Types Packs/Day Years Used Date Smoking Tobacco: Never Smokeless Tobacco: Former Alcohol Use Standard Drinks/Week Comments Yes 0 (1 standard drink = 0.6 oz pur e alcohol) rare PHQ-2 Answer Date Recorded PHQ-2 Score 0 01/26/2021 Comments No Sex and Gender Information Value Date Recorded Sex Assigned at Female 05/05/2022 5:57 PM CDT Legal Sex Female 3:52 AM PALAEONTOLOGIST Gender Identity Female 05/05/2022 5:57 PM CDT [...] st Contact Info) Description 07/18/2025 11:30 AM PALAEONTOLOGIST Office Visit [facility] [address] [place] [address] Ashish Augustine MD [address] [place] [address] documented as of this encounter Visit Diagnoses Not on filedocumented in this encounter Additional Health Concerns Assessment Noted Time PHQ-9 Depression Total Score: 6 03/26/20 19 6:35 PM CDT documented as of this encounter Care Teams Train Operator Relationship Specialty Start Date End Date Priti Morfin APRN BEEKEEPER PCP - General 07/21/11 Timothy Rice MD Student in organized health care education/training program 05/08/15 Jessica Morrison MD Internal Medicine 07/08/16 09/21/23 Priti Morfin APRN BEEKEEPER Nurse Practitioner Nurse Practitioner 08/19/16 [place] [address] [place] [address] Gastroenterology 04/30/19 Ashish Augustine MD [address] [facility] [address] [place] [address] Neurology 07/17/19 Ashish Augustine MD [address] [facility] [address] [place] [address] Assigned Neuroscience Provider 05/22/20 10/28/22 Priti Morfin APRN BEEKEEPER Assigned PCP 08/30/20 Naldo Alexander MD [address] [facility] [address] [place] [address] Gastroenterology 01/28/21 Naldo Alexander MD [address] [facility] [address] [place] [address] Assigned Gastroenterology Provider 05/09/21 05/21/24 Daniel Roberto MD [address] [place] [address] [facility] [address] [place] [address] Assigned Surgical Provider 12/10/22 06/21/24 Ashish Augustine MD [address] [facility] [address] [place], [place] [address] Assigned Neuroscience Provider 02/04/23 Morales Negrete MD [address] [facility] [address] [place], [place] [address] Hospitalist Internal Medicine - Pediatrics 02/26/24 Shanel Guadarrama PA-C [address] [facility] [address] [place], [place] [address] Physician Network Operations Lead Dermatology 03/18/24 documented as of this encounter
--- OUTSIDE RECORDS SUMMARY | 2025-03-24 09:57 | XMS_ITS | Clinical Summary ---
Author Organization [facility] Address [facility] [place] [address] Care Team Providers Care Ammonia Operator Name Role Phone Tony Canela MD Primary Care Provider [phone] Jose Diaz PA-C Unavailable [phone] Allergies Active Allergy Reactions Criticality Noted Date Comments Adhesive Tape-Silicones Rash High 09/03/2010 Other Reaction(s): Blisters Reaction from steri-strips and butterfly as well Ciprofloxacin Swelling, lips/tongue 12/05/2016 Lip swelling, arm and wrist pain Propoxyphene N-Acetaminophen 04/30/2021 Gum Ixrfrm-Otocxc-Ujre-Alcoh ol 08/23/2016 Haloperidol Other 06/23/2017 Dopamine cezar Meperidine Anaphylaxis High 12/13/2007 Pt is on MAOI Inhibitor Pemoline Nausea 12/13/2007 Methylphenidate Vomiting Medium 04/30/2021 Hydrocodone-Acetaminophe n 04/30/2021 Medications baclofen (LIORESAL) 20 mg oral tablet TAKE 1 TABLET (20 MG) BY MOUTH EVERY EVENING. MAY TAKE DURING THE DAY FOR MUSCLE SPASM NEEDED. Active carbidopa-levod opa (SINEMET) 25-100 mg oral tablet Take 1 tablet by mouth four times a day. Active Ferrous Sulfate 325 mg (65 mg iron) oral TbEC Take 1 tablet (325 mg) by mouth Daily. 02/24/2023 Active pantoprazole (PROTONIX) 40 mg oral delayed release tablet Take 1 tablet (40 mg) by mouth once daily. Active sertraline (ZOLOFT) 100 mg oral tablet Take 1 tablet (100 mg) by mouth once daily. Active XYREM 500 mg/mL oral Soln 09/11/2023 Active valACYclovir (VALTREX) 500 mg oral tablet TAKE 1 TABLET (500 MG) BY MOUTH DAILY APPT NEEDED FOR FURTHER REFILLS Active Sodium Oxybate 500 mg/mL oral Soln Take 7.5 mL (3.75 g) by mouth twice a day. 180 mL 3 09/04/2024 Active dextroamphetami ne-amphetamine (ADDERALL XR) 10 mg oral extended release capsule 24 HR Take 1 capsule (10 mg) by mouth every morning before breakfast. 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 Dysthymic disorder 08/16/2017 Parkinson's disease 07/18/2017 Generalized anxiety disorder 07/18/2017 Other amnesia 04/25/2016 Sprain of unspecified parts of thorax, initial e ncounter 02/04/2015 Sprain of ligaments of lumbar spine, initial enc ounter 02/04/2015 Insomnia due to medical condition 06/25/2013 Social History Tobacco Use Types Packs/Day Years Used Date Smoking Tobacco: Never Smokeless Tobacco: Never Tobacco Cessation:Counseling Given: No Comments Unknown Sex and Gender Information Value Date Recorded Sex Assigned at Not on file Legal Sex Female 10:17 AM CDT Gender Identity Not on file Sexual Orientation Not on file Plan of Treatment Health Maintenance Due Date Last Done Comments Colonoscopy 1970 Hepatitis C Screening 1970 Lipid Screening 1970 Medicare Wellness Visit 1970 Pap Smear 1970 Anxiety Follow-Up (YU-7) 12/09/1971 Depression Follow-Up (PHQ-9) 12/09/1971 Mammogram Screening 06/21/2015 06/21/2013 Pneumococcal 50+ Years (1 of 1 - PCV) 2020 Yearly Review of HCD 2020 Zoster Vaccine (1 of 2) 2020 COVID-19 Vaccine ( - 2023-2 5 season) 2024 Influenza Vaccine (#1) 2025 Adult Tetanus Booster 06/23/2027 06/23/2017 , 09/09/2008 RSV Vaccines (1 - 1-dose 75+ series) 2045 Meningococcal B Vaccine Aged Out No l onger eligible based on patient's age to complete this topic Insurance MEDICARE PART A & B [place] MEDICARE PART A & B [facility] Member Subscriber Plan / Payer (Ef fective 2021-Present) Name:Ramiro Aguilera Relation to Subscriber:Self Name:Ramiro Aguilera Payer ID:[id number] ([facility]) Type:[facility] Address: [address] [address] [facility] Care Teams Ammonia Operator Relationship Specialty Start Date End Date Tony Canela MD [address] [facility] [address] [place], [place] [address] PCP - General 06/29/07 Jose Diaz, PAShamarC [address] [facility] [address] [place], [place] [address] Neurology 10/05/23
[2025-03-24 10:18] VITALS: BP 127/76; PULSE 70; RESP 16; TEMP 36.3; O2SAT 98
--- NOTE | 2025-03-24 11:14 | ED.GENADULT ---
HPI - General Adult General Date Seen: 03/24/25 Chief complaint: Skin/Abscess/Foreign Body Stated complaint: rash on the back of the knees Time Seen by Provider: 03/24/25 11:14 History of Present Illness HPI narrative: 54-year-old female with history of GERD, depression, prior cholecystectomy, Parkinsonism(on Sinemet and a natural dopamine supplement), who presents to the ER for an itchy rash both of her lower extremities in the backs of her knees and calf that began week ago, last Monday. She has a blanchable itchy purple rash affecting the the backs of both of her knees. She recalls that she was at the [facility] and doing some hamstring curls last Monday. She wonders if she might have been exposed to an infection or something from the hamstring curl bar that was touching against the back of her knees. She also notes that she ate some eggs that may have been a little bit old last Monday. She was awoken from sleep with lumen is watery diarrhea last Monday and has had mild loose stools ever since then. No abdominal pain. No fever. Since last Monday she has had an itchy rash. It has been per pollution affecting the back of both of her knees. It just isn't going away so she came to the ER. She is not having any fever. No other rashes. No other unusual bleeding or bruising. No blood in her stool. No bleeding gums. No blood in her urine. No fever. She had been trying some topical antibiotic ointment but it is not helping. Related Data Home Medications ?Medication ?Instructions ?Recorded ?Confirmed carbidopa 25 mg-levodopa 100 mg 1 tab PO QID 04/02/23 04/02/23 tablet dicyclomine 10 mg capsule 10 mg PO Q6H PRN 04/02/23 04/02/23 ferrous sulfate 325 mg (65 mg 325 mg PO DAILY 04/02/23 04/02/23 iron) tablet,delayed release pantoprazole 40 mg tablet,delayed 40 mg PO DAILY 04/02/23 04/02/23 release sertraline 100 mg tablet 100 mg PO DAILY 04/02/23 04/02/23 Previous Rx's ?Medication ?Instructions ?Recorded ketorolac 0.4 % eye drops 1 drp ophthalmic (eye) QID #5 mL 02/02/24 polymyxin B sulfate 10,000 1 drp ophthalmic (eye) Q3H 7 days 02/02/24 unit-trimethoprim 1 mg/mL eye drops #10 mL prednisone 10 mg tablet See Rx Instructions .Route 03/24/25 .COMPLEX #48 tabs Allergies Allergy/AdvReac Type Severity Reaction Status Date / Time methylphenidate (From Allergy Mild Verified 04/02/23 17:48 Ritalin) pemoline (From Cylert) Allergy Mild Vomiting Verified 04/02/23 17:48 haldol AdvReac Unknown parkinsons Uncoded 04/02/23 17:47 [facility] Social History Smoking Status: Never smoker Do you use any of these nicotine containing products: None Second hand tobacco smoke exposure: Yes How often do you have a drink containing alcohol: monthly or less How many standard drinks containing alcohol do you have on a typical day: 1 or 2 How often do you have six or more drinks on one occasion: Never AUDIT-C Alcohol total score: 1 Non-prescribed substance use: denies use service: No Exam Narrative: Exam Narrative: Constitutional: Appears well-developed and well-nourished. Alert. Conversant. Non toxic. Resting tremor. HENT: Head: Atraumatic. Nose: Nose normal. Mouth/Throat: Oral mucosa is clear and moist. no trismus. Pharynx normal. Tonsils symmetric. No tonsillar enlargement, erythema, or exudate. Eyes: Conjunctivae normal. EOM normal. Pupils equal, round, and reactive to light. No scleral icterus. Neck: Normal range of motion. Neck supple. No tracheal deviation present. Cardiovascular: Normal rate, regular rhythm. No gallop. No friction rub. No murmur heard. Symmetric radial artery pulses Pulmonary/Chest: Effort normal. No stridor. No respiratory distress. No wheezes. No rales. No rhonchi . No tenderness. Abdominal: Soft. Bowel sounds normal. No distension. No mass. No tenderness. No rebound. No guarding. Musculoskeletal: RUE: Normal range of motion. No tenderness. No deformity LUE: Normal range of motion. No tenderness. No deformity RLE: Normal range of motion. No edema. No tenderness. No deformity LLE: Normal range of motion. No edema. No tenderness. No deformity Lymph: No cervical adenopathy. Neurological: Alert and oriented to person, place, and time. Normal strength. CN II-VII intact. No sensory deficit. GCS eye subscore is 4. GCS verbal subscore is 5. GCS motor subscore is 6. Normal coordination Skin: She does have a blanchable purple macular rash affecting both of her posterior knees in the popliteal fossa. The on the posterior right knee the rash is irregular shaped and an oval azra-shaped that is about 8 x 6 cm. On the back of the left knee it is slightly smaller being about 6 x 5 cm. The skin is ballotable when I run my finger across it. I do not see any raised vesicular lesions. No palpable fluid to suggest hematoma or abscess. No other rashes or other bruised areas on her lower extremities. No calf tenderness or palpable cords. No knee joint effusion. No anterior knee rash and. No knee tenderness. Skin is otherwise warm and dry. No rash noted. No pallor. Normal capillary refill. Psychiatric: Normal mood. Mildly anxious but very polite. Const: Vital Signs, click to edit/add: Vital Signs - 24 hr 03/24/25 10:18 Temperature 97.4 F L Pulse Rate [Pulse Oximeter] 70 Respiratory Rate 16 Blood Pressure [Ri ght Upper Arm] 127/76 Pulse Oximetry 98 Oxygen Delivery Me thod Room Air Course Vital Signs Vital signs: Initial Vital Signs Temperature 97.4 F L 03/24/25 10:18 Temperature Source Temporal Artery Scan 03/24/25 10:18 Pulse Rate 70 03/24/25 10:18 Respiratory Rate 16 03/24/25 10:18 Blood Pressure 127/76 03/24/25 10:18 Blood Pressure Mean 93 03/24/25 10:18 Blood Pressure Position Sitting 03/24/25 10:18 Pulse Oximetry 98 03/24/25 10:18 Oxygen Delivery Method Room Air 03/24/25 10:18 Vital Signs Temperature 97.4 F L 03/24/25 10:18 Pulse Rate 70 03/24/25 10:18 Respiratory Rate 16 03/24/25 10:18 Blood Pressure 127/76 03/24/25 10:18 Pulse Oximetry 98 03/24/25 10:18 Oxygen Delivery Method Room Air 03/24/25 10:18 Temperature 97.4 F L 03/24/25 10:18 Pulse Rate 70 03/24/25 10:18 Respiratory Rate 16 03/24/25 10:18 Blood Pressure 127/76 03/24/25 10:18 Pulse Oximetry 98 03/24/25 10:18 Oxygen Delivery Method Room Air 03/24/25 10:18 Medical Decision Making MDM Narrative Medical decision making narrative: Pleasant 54-year-old female with history of early onset Parkinson's on Sinemet , but no history of autoimmune disease or vasculitis, presenting to the ER today for an itchy rash. The rash is somewhat unusual. Patient has in her mind 2 potential causes for. One would be that she was doing some hamstring curls on an exercise machine last Monday at the and might have been exposed to some bacteria or chemical from that machine to give her the rash on the backs of her knees. Two is that she had a blowout diarrhea while she was sleeping the other night and did get some liquidy stool on the back of her knees. With these exposures consider possible contact dermatitis. The rash is localized to clearly well-circumscribed areas in the back of both for popliteal fossa. However the rash is more of a blanchable purple lesion on the skin rather than a red vesicular rash as you might expect with typical contact dermatitis. Rash is not consistent with a generalized allergic reaction, cellulitis, and since it is so well circumscribed it is clearly not indicative of DVT. I do not see any signs of joint arthritis or inflammation to suggest septic arthritis or Garcia's disease. With a purple discoloration of the rash, consider possible vasculitis or platelet disorder. We did check labs which are reassuring. The patient also reports that the rash started the morning after she started getting diarrhea. She does still have some mild diarrhea even through to today. Consider possible HE you S as a consequence of bacterial enteritis. However kidney function, platelet count, coags are normal. She is not able to provide a stool sample here in the ER for us to send a stool culture. Patient is ear discharge from the ER. At this point of think it is reasonable to try her on a tapering course of prednisone. She request a printed paper prescription rather than the prescription. This is provided. Discussed with the patient this point the cause of the rash is not clear. We will try around prednisone but if she is either not improving or if it gets worse, she needs to seek medical re-evaluation. Precautions for return to the ER and need for follow-up reviewed. Lab Data Labs: Lab Results 03/24/25 Range/Units 12:00 WBC 5.01 (4.50-11.00) K/uL RBC 4.76 (4.00-5.20) m/uL Hgb 14.1 (12.0-16.0) gm/dL Hct 43.5 (33.0-51.0) % MCV 91 (80-100) fL MCH 30 (26-34) pg MCHC 32 (32-36) gm/dL RDW Coeff of Claribel 12.8 (11.5-15.5) % Plt Count 211 (140-440) K/uL Neut % (Auto) 71.2 (42.0-72.0) % Lymph % (Auto) 21.8 (20-44) % Otero % (Auto) 6.2 (0.0-11.0) % Eos % (Auto) 0.2 (0.0-7.0) % Baso % (Auto) 0.6 (0.0-3.0) % Neut # (Auto) 3.57 (1.7-7.0) K/uL Lymph # (Auto) 1.09 (0.90-2.90) K/uL Otero # (Auto) 0.30 (0.00-0.90) K/UL Eos # (Auto) 0.01 (0.00-0.50) K/uL Baso # (Auto) 0.03 (0.00-0.30) K/uL Abs Immat Gran (auto) 0.00 (0.00-0.30) K/uL Imm/Tot Granulo (auto) 0.0 % INR 0.85 L (0.91-1.10) APTT 25 (23-33) Seconds Sodium 142 (135-149) mmol/L Potassium 4.0 (3.6-5.1) mmol/L Chloride 102 (96-114) mmol/L Carbon Dioxide 32 (20-32) mmol/L Anion Gap 8 (7-15) mEq/L BUN 14 (7-30) mg/dL Creatinine 0.9 (0.5-1.5) mg/dL Estimated GFR 76 ml/min Glucose 134 H (60-115) mg/dL Calcium 9.5 (8.4-10.6) mg/dL Total Bilirubin 0.2 (0.1-1.5) mg/dL AST 28 (12-35) U/L ALT 16 (4-35) U/L Alkaline Phosphatase 51 (40-150) U/L Total Protein 7.6 (6.0-8.3) g/dL Albumin 4.7 (3.3-5.0) g/dL Discharge Plan Discharge Clinical Impression: Contact dermatitis Patient Disposition: Home, Self-Care Condition: Stable Instructions: Contact Dermatitis (ED) Additional Instructions: As we discussed, the cause of her rash is not clear. It could be a skin irritation or a contact dermatitis from the diarrhea that you had last week or some chemical that was on the exercise machine last week. Your rash could also be related to a problem such as ?vasculitis? affecting the blood vessels microscopically in your skin. We are going to put you on a course of steroids. This should help your rash get better, however if her rash is not dramatically improved within 4-5 days or if the rash gets worse, please recheck with your regular doctor. If you have other worsening symptoms such as high fever, uncontrolled diarrhea, spreading rash or new spots, please see your doctor immediately or come back to the ER. Prescriptions: New prednisone 10 mg tablet See Rx Instructions .ROUTE .COMPLEX Qty: 48 0RF Rx Instructions: Take 60 mg by mouth once daily for 3 days, then 50 mg by mouth once daily for 2 days, then 40 mg by mouth once daily for 2 days, then 30 mg by mouth daily for 2 days, then 20 mg by mouth daily for 2 days, then 10 mg by mouth daily for 2 days, then stop. No Action sertraline 100 mg tablet 100 mg PO DAILY pantoprazole 40 mg tablet,delayed release (DR/EC) 40 mg PO DAILY ferrous sulfate 325 mg (65 mg iron) tablet,delayed release (DR/EC) 325 mg PO DAILY carbidopa-levodopa 25-100 mg tablet 1 tab PO QID dicyclomine 10 mg capsule 10 mg PO Q6H PRN polymyxin B sulf-trimethoprim 10,000 unit- 1 mg/mL drops 1 drp ophthalmic (eye) Q3H 7 Days Qty: 10 0RF Rx Instructions: while awake; do not exceed 6 doses in 24 hours ketorolac 0.4 % drops 1 drp ophthalmic (eye) QID Qty: 5 0RF Follow Up/Referrals: Provider,Not a Local [Primary Care Provider, Family Practice] Stand Alone Forms: [facility] Info Instructions
[2025-03-24 12:07] LABS: Hematocrit 43.5 % (33.0-51.0); Hemoglobin* 14.1 gm/dL (12.0-16.0); Immature Granulocytes Abs Auto 0.00 K/uL (0.00-0.30); Immature Granulocytes Pct Auto 0.0 %; Lymphocytes Absolute Auto 1.09 K/uL (0.90-2.90); Mean Corpuscular HGB Conc 32 gm/dL (32-36); Mean Corpuscular Hemoglobin 30 pg (26-34); Mean Corpuscular Volume 91 fL (80-100); RDW Coefficient of Variation % 12.8 % (11.5-15.5); Red Blood Count 4.76 m/uL (4.00-5.20); White Blood Count* 5.01 K/uL (4.50-11.00)
[2025-03-24 12:10] LABS: Slide Review Reflex No
[2025-03-24 12:30] LABS: Albumin* 4.7 g/dL (3.3-5.0); Chloride* 102 mmol/L (96-114); Potassium* 4.0 mmol/L (3.6-5.1); Sodium* 142 mmol/L (135-149)
[2025-03-24 12:31] LABS: INR 0.85 (0.91-1.10); Prothrombin Time 12.4 Seconds
[2025-03-24 12:33] LABS: Alanine Aminotransferase* 16 U/L (4-35); Alkaline Phosphatase* 51 U/L (40-150); Anion Gap 8 mEq/L (7-15); Aspartate Amino Transferase* 28 U/L (12-35); Bilirubin Total* 0.2 mg/dL (0.1-1.5); Blood Urea Nitrogen* 14 mg/dL (7-30); Calcium* 9.5 mg/dL (8.4-10.6); Carbon Dioxide* 32 mmol/L (20-32); Creatinine* 0.9 mg/dL (0.5-1.5); Estimated Glomerular Filt Rate 76 ml/min; Glucose* 134 mg/dL (60-115); Total Protein* 7.6 g/dL (6.0-8.3)
--- OUTSIDE RECORDS SUMMARY | 2025-03-24 12:55 | XMS_ITS | CCD ---
Author Organization Unknown Care Team Providers Care Director Design Name Role Phone Trailhead Construction Worker, [place] Primary Care Provider Unava ilable Unavailable Chronic Care Management Unavaila ble Summary Purpose DataExchange Insurance Providers Payer name Policy type / Coverage type Covered republican ID Effective Begin Date Effective End Date Ucare [facility] Medicare Risk [id number] Unknown Medicaid [facility] Medicare Risk [id number] Unknow n Family History Family History data not found Medication Administered No Medication Administered data Reason For Visit No Reason For Visit data
--- OUTSIDE RECORDS SUMMARY | 2025-03-24 12:55 | XMS_ITS | CCD ---
Author Organization Unknown Care Team Providers Care Travel Manager Name Role Phone Continuous Vulcanizing Machine Operator, [place] Primary Care Provider Unava ilable Unavailable Chronic Care Management Unavaila ble Summary Purpose DataExchange Insurance Providers Payer name Policy type / Coverage type Covered alliance party ID Effective Begin Date Effective End Date Ucare [facility] Medicare Risk [id number] Unknown Medicaid [facility] Medicare Risk [id number] Unknow n Family History Family History data not found Medication Administered No Medication Administered data Reason For Visit No Reason For Visit data
== END 2025-03-24 13:18 | disposition home or self-care (01) ==
PROVIDERS: Emergency Provider Emergency Medicine
DX: R23.8 Other skin changes (principal); L25.9 Unspecified contact dermatitis, unspecified cause
CPT/HCPCS: 36415; 80053; 85025; 85610; 85730; 87045; 87046; 87427; 99283

== ENCOUNTER 2025-04-05 15:11 | Emergency (ER) | payer MEDICARE, MEDICAID, SELFPAY ==
--- OUTSIDE RECORDS SUMMARY | 2013-10-08 10:45 | XMS_ITS | Continuity of Care Document ---
Author Organization [facility] Address [address] [place] [address] Phone Care Team Providers Care Customs Examiner Name Role Phone Unavailable Unavailable Unavailable Allergies, Adverse Reactions, Alerts Substance Reaction Status Criticality MEPERIDINE HCL Active No Informatio n acetaminophen Active No Information PROPOXYPHENE NAPSYLATE Active No In formation aspirin Active No Information oxycodone Active No Information acetaminophen Active No Information OXYCODONE HCL Active No Information Medications Medication Instructions Dosage Effective Dates (start - stop) Status Comments carbidopa 25 mg-levodopa 100 mg tablet take 6 Tablet by oral route every day 6 Tablet - Active Vagifem 10 mcg vaginal tablet insert 1 tablet by vaginal route every day for 14 days then 1 tablet (10 mcg) 2 times per week for duration of use 10 MCG - Active ondansetron HCl 4 mg tablet take 1 Tablet by oral route every 6 hours 4 MG - Active Tri-Dianelys 0.01 %-4 %-0.05 % Topical Cream apply by topical route every day to the affected area(s) at night 30 minutes before bedtime 0.00 - Active ibuprofen 800 mg tablet take 1 tablet by ORAL route every 6 hours as needed with food. 800 MG - Active lidocaine 5 % (700 mg/patch) Adhesive Patch apply 1 patch by transdermal route every day (May wear up to 12hours.) 1.00 patch - Active lidocaine 5 % Topical Ointment apply by topical route 3 times every day to the affected area(s) Not Available - Active sertraline 50 mg tablet take 1 Tablet by ORAL route every day 50 MG - Active lisinopril 10 mg tablet take 2 Tablet by oral route every day 20 MG - Active AZILECT 1 mg tablet take 1 tablet by oral route every day 1 MG - Active Neupro 4 mg/24 hour Transderm 24 hr Patch apply 1 patch by transdermal route every day . Do not apply to same area more than once every 14 days. 4 MG - Active Tylenol-Codeine #3 300 mg-30 mg tablet take 2 Tablet by oral route every bedtime 2 Tablet - Active Robaxin 500 mg tablet take 1 Tablet by oral route 3 times every day 500 MG - No Longer Active lidocaine 5 % Topical Ointment apply by topical route 3 times every day to the affected area(s) Not Available - No Longer Active 100 gram tube lidocaine 5 % Topical Ointment apply by topical route 3 times every day to the affected area(s) Not Available - No Longer Active Procedures Procedure Date Offic/outpt E&m [facility] Mod-wv 2 14 Current Meds Documented, Not Verified Nd Screen for depression not performed Pain Assessment And Follow Up Plan Docum ented Patient Non Tobacco User Patient NOT Screened for Alcohol Use Sep Epid/SAB Lumbosacral Epidurography Depomedrol 80mg Lo Osm Contr Mat (200-249mg) Fluoroscopy Radiation Exposure Documente d Offic/outpt E&m [facility]-wv 45 4 Depression Screen Completed & Documented With Follow Up Plan Current Med Dosages Verified & Documente d Pain Assessment And Follow Up Plan Docum ented Patient Non Tobacco User QA DONE Inj Not Lytic-epidur; Lumb/sac 07 Fluoroscopic Guidance For Needle Placeme nt - Spine Advance Directives Directive Yes / No Effective Date File Name No Information Encounters Encounter Description Practice Location Reason(s) For Visit Diagnoses Date Provider Providers Copied on Encounter Offic/outpt E&m [facility] Mod-[facility] 2 [facility], [address], [place], [place], [id number], [place] tel:[phone] [facility] No Information 4 No Information Referring Provider: Tony Canela MD, [address] [facility], [place], [address]. tel:[phone] [facility], [address], [place], [place], [address], [place] tel:[phone] [facility] No Information 4 No Information Referring Provider: Tony Canela MD, [address] [facility], [place], [address]. tel:[phone] Offic/outpt E&m [place]-hi 45 [facility], [address], [place], [place], [address], tel:[phone] [facility] No Information 4 Bello Valadez. [address], [place], [place], [address], [place]. tel:[phone] Referring Provider: Tony Canela MD, [address] [facility], [place], [address]. tel:[phone] [facility], [address], [place], [place], [address], tel:[phone] [facility] No Information 7 No Information Referring Provider: Tony Canela MD, [address] [facility], [place], [address]. tel:[phone] Family History Family Member Type Diagnosis Age At Onset No Information Payers Payer name Insurance type Covered alliance party ID Authorreynolda tirivera(s) U Care-Medicaid [place] [id number] Social History Type Description Quantity Date Captured Comments Alcohol Use Details Caffeine Use Details Unknown Tobacco Use Status No Information Smoking Status Never Smoker Non-Smoking Tobacco Use Details : No Details Available : No Details Available Sex Female Chief Complaint And Reason For Visit No Information Reason For Referral Reason For Referral No Information History Of Present Illness Encounter Date Complaint History Of Prese nt Illness No Information Functional Status Date Functional Assessmen t No Information Instructions Date Instruction Additional Infor mation No Information Assessments Type Assessment Date No Information Patient Care Teams Name Effective Dates (start - stop) Status Members No Information
--- OUTSIDE RECORDS SUMMARY | 2013-10-08 10:45 | XMS_ITS | Continuity of Care Document ---
Author Organization [facility] Address [address] [place] [address] Phone Care Team Providers Care Vending Machine Repairer Name Role Phone Unavailable Unavailable Unavailable Allergies, Adverse Reactions, Alerts Substance Reaction Status Criticality MEPERIDINE HCL Active No Informatio n acetaminophen Active No Information PROPOXYPHENE NAPSYLATE Active No In formation aspirin Active No Information oxycodone Active No Information acetaminophen Active No Information OXYCODONE HCL Active No Information Medications Medication Instructions Dosage Effective Dates (start - stop) Status Comments Tylenol-Codeine #3 300 mg-30 mg tablet take 2 Tablet by oral route every bedtime 2 Tablet - Active Neupro 4 mg/24 hour Transderm 24 hr Patch apply 1 patch by transdermal route every day . Do not apply to same area more than once every 14 days. 4 MG - Active AZILECT 1 mg tablet take 1 tablet by oral route every day 1 MG - Active lisinopril 10 mg tablet take 2 Tablet by oral route every day 20 MG - Active sertraline 50 mg tablet take 1 Tablet by ORAL route every day 50 MG - Active lidocaine 5 % Topical Ointment apply by topical route 3 times every day to the affected area(s) Not Available - Active lidocaine 5 % (700 mg/patch) Adhesive Patch apply 1 patch by transdermal route every day (May wear up to 12hours.) 1.00 patch - Active ibuprofen 800 mg tablet take 1 tablet by ORAL route every 6 hours as needed with food. 800 MG - Active Tri-Dianelys 0.01 %-4 %-0.05 % Topical Cream apply by topical route every day to the affected area(s) at night 30 minutes before bedtime 0.00 - Active ondansetron HCl 4 mg tablet take 1 Tablet by oral route every 6 hours 4 MG - Active Vagifem 10 mcg vaginal tablet insert 1 tablet by vaginal route every day for 14 days then 1 tablet (10 mcg) 2 times per week for duration of use 10 MCG - Active carbidopa 25 mg-levodopa 100 mg tablet take 6 Tablet by oral route every day 6 Tablet - Active lidocaine 5 % Topical Ointment apply by topical route 3 times every day to the affected area(s) Not Available - No Longer Active 100 gram tube Robaxin 500 mg tablet take 1 Tablet by oral route 3 times every day 500 MG - No Longer Active lidocaine 5 % Topical Ointment apply by topical route 3 times every day to the affected area(s) Not Available - No Longer Active Procedures Procedure Date Offic/outpt E&m [facility] Mod-[address] 2 14 Current Meds Documented, Not Verified Az Screen for depression not performed Pain Assessment And Follow Up Plan Docum ented Patient Non Tobacco User Patient NOT Screened for Alcohol Use Sep Epid/SAB Lumbosacral Epidurography Depomedrol 80mg Lo Osm Contr Mat (200-249mg) Fluoroscopy Radiation Exposure Documente d Offic/outpt E&m [facility] 4 Depression Screen Completed & Documented [...] Provider Providers Copied on Encounter Offic/outpt E&m [facility] Mod-[address] 2 [facility], [address], [place], [place], [id number], [place] tel:[phone] [facility] No Information 4 No Information Referring Provider: Tony Canela MD, [address] [facility], [place], [address]. tel:[phone] [facility], [address], [place], [place], [address], [place] tel:[phone] [facility] No Information 4 No Information Referring Provider: Tony Canela MD, [address] [facility], [place], [address]. tel:[phone] Offic/outpt E&m [place] 45 [facility], [address], [place], [place], [address], tel:[phone] [facility] No Information 4 Bello Valadez. [address], [place], [place], [address], [place]. tel:[phone] Referring Provider: Tony Canela MD, [address] [facility], [place], [address]. tel:[phone] [facility], [address], [place], [place], [address], tel:[phone] [facility] No Information 7 No Information Referring Provider: Tony Canela MD, [address] [facility], [place], [address]. tel:[phone] Family History Family Member Type Diagnosis Age At Onset No Information Payers Payer name Insurance type Covered democrat ID Authorreynolda tirivera(s) U Care-Medicaid [place] [id number] Social History Type Description Quantity Date Captured [...]
--- OUTSIDE RECORDS SUMMARY | 2019-04-17 06:01 | XMS_ITS | Continuity of Care Document ---
Author Organization [facility] Address [address] [address] [place] [address] Phone Care Team Providers Care Drug And Alcohol Counselor Name Role Phone Unavailable Unavailable Unavailable Allergies, Adverse Reactions, Alerts Substance Reaction Status Criticality MEPERIDINE HCL Active No Informatio n HALOPERIDOL LACTATE Active No Infor mation haloperidol Active No Information dog dander Active No Information cat dander Active No Information pemoline Active No Information METHYLPHENIDATE HCL Active No Infor mation PROPOXYPHENE NAPSYLATE Nausea Resolved No In formation acetaminophen Nausea Resolved No Information OXYCODONE HCL Nausea Resolved No Information WARNIN allergy(ies) could not be collected because the type is not supported. Please contact the source practice for further details. Medications Medication Instructions Dosage Effective Dates (start - stop) Status Comments omeprazole 20 mg capsule,delayed release take 1 capsule by oral route 2 times every day 30 minutes to 1 hour before a meal 20 MG - Active valacyclovir 500 mg tablet take 2 tablet by oral route 2 times every day 1000 MG - Active sertraline 100 mg tablet take 1 tablet by oral route every day 100 MG - Active baclofen 20 mg tablet take 1 tablet by oral route 4 times every day 20 MG - Active carbidopa 25 mg-levodopa 100 mg tablet take 1 tablet by oral route 3 times every day 1.00 tablet - Active Xyrem 500 mg/mL oral solution take (3G) by oral route 2 times every day diluted in 2 ounces of water in dosing cups provided at bedtime and 2.5-4 hrs later while in bed 3 G - Active Herbal Medications/Supplem ents unknown - Active EXELON (unknown strength) apply 1 patch by transdermal route every day . Do not apply to same area more than once every 14 days. Not Available - Active zolpidem 10 mg Tab as needed - No Longer Active Vivactil 10 mg Tab Take one tablet by mouth two times per day - No Longer Active sertraline 50 mg Tab Take one tablet by mouth every bedtime - No Longer Active ondansetron 4 mg Tab, Rapid Dissolve Take one tablet by mouth every 8 hours - No Longer Active lorazepam 2 mg Tab Take one tablet by mouth three times per day - No Longer Active ibuprofen 200 mg Cap as needed - No Longer Active hydromorphone 2 mg Tab Take one tablet by mouth every 6 hours - No Longer Active Dilaudid 2 mg Tab Use as directed - No Longer Active Cartia XT 240 mg 24 hr Cap Take one tablet by mouth daily - No Longer Active Lodosyn 25 mg Tab Take 1/2 capsule by mouth once per day - No Longer Active AZILECT 1 mg Tab Take one tablet by mouth daily - No Longer Active Zofran 8 mg Tab Take 1 tablet by mouth as needed - No Longer Active Procedures Procedure Date UMP Charges Offic/outpt E&m [facility] 2 09 G8447 Ugi Endo; W/endo Untrasound Ex 09 Init Inpt Cons New/est Mod-ma 9 Advance Directives Directive Yes / No Effective Date File Name No Information Encounters Encounter Description Practice Location Reason(s) For Visit Diagnoses Date Provider Providers Copied on Encounter [facility] [address] [address], [place], [id number], [place] tel:[phone] [facility] No Information 9 No Information [facility] [address] [address], [place], [id number], [place] tel:[phone] [facility] DyspepsiaGERD without esophagitisGa stritis and duodenitisNau sea with vomiting, unspecifiedGa stroduodeniti s, unspecified, without bleedingEpiga stric painGastro-es ophageal reflux disease without esophagitis 9 No Information Referring Provider: Referral Self, USE FOR SELF REFERRALS. Offic/outpt E&m [facility] Mod-hi 2 [facility], [address] [address], [place], [place], [address], [place] tel:[phone] [facility] Abdominal pain (chief complaint) RUQ PainConstipat ion Unspecified 9 No Information Referring Provider: Priti Morfin NP M, [address], [place], [address]. tel:[phone] [facility], [address] [address], [place] [facility] [place], [address], [place] tel:[phone] [facility] No Information Noreen RODRIGUEZ Vito. [address], [id number], [place]. tel:[phone] Referring Provider: Priti Morfin HOSPICE CARE CONSULTANT M, [address], [place], [address]. tel:[phone] Init Inpt Cons New/est Mod-hi [facility], [address] [address], [place], [place], [address], [place] tel:[phone] [facility] No Information No Information Referring [place]: [place], [address] [place], [address]. tel:[phone] Family History Family Member Type Diagnosis Age At Onset First degree family history Problem (finding) No history of Crohn's First degree family history Problem (finding) No history of Ulcerative Colitis First degree family history Problem (finding) No history of Cancer, colon First degree family history Problem (finding) No Family history of No history of Colon Polyps Payers Payer name Insurance type Covered republican ID Authoriza tion(s) Medicare NGS MB [id number] Social History Type Description Quantity Date Captured Comments Sex Female Smoking Status No Information Chief Complaint And Reason For Visit No Information Reason For Referral Reason For Referral No Information History Of Present Illness Encounter Date Complaint History Of Prese nt Illness No Information Functional Status Date Functional Assessmen t No Information Instructions Date Instruction Additional Infor mation Dyspepsia Related to Dyspe psia Gastroesophageal Reflux Disease Related to Dyspepsia Gastritis Related to Dyspe psia Assessments Type Assessment Date No Information Patient Care Teams Name Effective Dates (start - stop) Status Members No Information
--- OUTSIDE RECORDS SUMMARY | 2019-04-17 06:01 | XMS_ITS | Continuity of Care Document ---
Author Organization [facility] Address [address] [address] [place] [address] Care Team Providers Care Pocket Cutter Name Role Phone [facility] [place], [place] Unavailable Unav ailable Procedures Procedure Date Ugi En Pt Doc Pt W/o Advance Directives Directive Yes / No Effective Date File Name No Information Encounters Encounter Description Practice Location Reason(s) For Visit Diagnoses Date Provider Providers Copied on Encounter [facility], [address] [address], [place], [place], [id number], [place] [facility] No Information [facility]. [address] [address], [place], [place], [address], . tel:[phone] Family History Family Member Type Diagnosis Age At Onset No Information Payers Payer name Insurance type Covered constitution party ID Authoriza tion(s) Medicare NGS MB [id number] Social History Type Description Quantity Date Captured [...]
--- OUTSIDE RECORDS SUMMARY | 2019-04-17 06:01 | XMS_ITS | Continuity of Care Document ---
Author Organization [facility] Address [address] [address] [place] [address] Phone Care Team Providers Care Ring Barker Operator Name Role Phone Unavailable Unavailable Unavailable Allergies, [...] Procedure Date UMP Charges Offic/outpt E&m [facility] [place] 2 09 G8447 Ugi Endo; W/endo Untrasound Ex 09 Init Inpt Cons New/est Mod-wa 9 Advance Directives Directive Yes / No Effective Date File Name No Information Encounters Encounter Description Practice Location Reason(s) For Visit Diagnoses Date Provider Providers Copied on Encounter [facility] [address] [address], [place], [id number], [place] tel:[phone] [facility] No Information 9 No Information [facility] [address] [address], [place], [id number], [place] tel:[phone] [facility] DyspepsiaGERD without esophagitisGa stritis and duodenitisNau sea with vomiting, unspecifiedGa stroduodeniti s, unspecified, without bleedingEpiga stric painGastro-es ophageal reflux disease without esophagitis 9 No Information Referring Provider: Referral Self, USE FOR SELF REFERRALS. Offic/outpt E&m [facility] Mod-hi 2 [facility], [address] [address], [place], [place], [id number], [place] tel:[phone] [facility] Abdominal pain (chief complaint) RUQ PainConstipat ion Unspecified 9 No Information Referring Provider: Priti Morfin NP M, [address], [place], [address]. tel:[phone] [facility], [address] [address], [facility] [place], [address], [place] tel:[phone] [facility] No Information Noreen RODRIGUEZ Vito. [address], [id number], [place]. tel:[phone] Referring Provider: Priti Morfin SUPERVISOR COUNSELING AND GUIDANCE M, [address], [place], [address]. tel:[phone] Init Inpt Cons New/est Mod-hi [facility] [place], [address] [address], [place], [place], [address], [place] tel:[phone] [facility] No Information No Information [place]: [place], [address] [place], [address]. tel:[phone] Family History Family Member Type Diagnosis Age At Onset First degree family history Problem (finding) No history of Crohn's First degree family history Problem (finding) No history of Ulcerative Colitis First degree family history Problem (finding) No history of Cancer, colon First degree family history Problem (finding) No Family history of No history of Colon Polyps Payers Payer name Insurance type Covered green party ID Authoriza tion(s) Medicare NGS MB [id number] Social History Type Description Quantity Date Captured [...]
--- OUTSIDE RECORDS SUMMARY | 2019-04-17 06:01 | XMS_ITS | Continuity of Care Document ---
Author Organization [facility] Address [address] [address] [place] [address] Care Team Providers Care Logistics Manager Name Role Phone [facility] [place], [place] Unavailable Unav ailable Procedures Procedure Date Ugi En Pt Doc Pt W/o Advance Directives Directive Yes / No Effective Date File Name No Information Encounters Encounter Description Practice Location Reason(s) For Visit Diagnoses Date Provider Providers Copied on Encounter [facility], [address] [address], [place], [place], [address], [place] [facility] No Information [facility]. [address] [address], [place], [place], [address], . tel:[phone] Family History Family Member Type Diagnosis Age At Onset No Information Payers Payer name Insurance type Covered republican ID Authoriza tion(s) Medicare NGS MB [id number] Social History Type Description Quantity Date Captured [...]
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
--- OUTSIDE RECORDS SUMMARY | 2021-09-16 11:19 | XMS_ITS | Continuity of Care Document ---
Author Organization [facility] Address [address] [facility] [place] [address] Phone Care Team Providers Care Seat Installer Name Role Phone Will Emilio SCHULTZ Unavailable [...] - Active Procedures Procedure Date OFFICE/OUTPATIENT VISIT, [facility] Advance Directives Directive Yes / No Effective Date File Name No Information Encounters Encounter Description Practice Location Reason(s) For Visit Diagnoses Date Provider Providers Copied on Encounter [facility], [address] [place] [address] Katherin Fishman [place], [id number] , [place] tel: [phone] [facility] No Information 2 Will Emilio. [address] [facility] Kiki [place]ma [place], [id number] , [place]. tel: [phone] OFFICE/OUTPA TIENT VISIT, [facility], [address] [facility] [place], [place], [id number] , [place] tel:[phone] [facility] [place] Back Pain (chief complaint) Low back painCervicalgiaRadi culopathyPostlamine ctomy syndrome, not elsewhere classifiedLong term (current) use of opiate analgesic 201 5 Stacie Marti. [address] [facility] Martita Fishman [place], [place], [id number] , [place]. [phone] Attending Physician: Belkys Salazar, [facility] [address], [place], [address]. tel:[phone] ng Provider: Tony Andrews [facility] [address], [place], [address]. tel:[phone] Family History Family Member Type Diagnosis Age At Onset No Information Payers Payer name Insurance type Covered democrat ID Authoriza tion(s) [place] [id number] [facility] [id number] Social History Type Description Quantity Date Captured Comments Sex Female Smoking Status No Information Chief Complaint And Reason For Visit No Information Reason For Referral Reason For Referral No Information History Of Present Illness Encounter Date Complaint History Of Prese nt Illness Back Pain (comments) This patien t is [...] other concerns today. Medical records:[place] records - [facility] records - Dr. Salazar TCSCPast Treatment:PT - no benefit BIA prior to surgery - mild reliefPast Medication:Ibuprofen 800mg Ldocaine 5% Back Pain Onset: 4 months ago. Severity level is moderate-severe. Duration: chronic. Location of pain is lower back, arms, legs, neck, left knee, left foot, left hand and.The patient describes the pain as an ache, burning and pins and needles. Symptoms are aggravated by lifting and movement. Symptoms are relieved by heat and pain meds/drugs. Functional Status Date Functional Assessmen t No Information Instructions Date Instruction Additional Infor mation No Information Assessments Type Assessment Date No Information Patient Care Teams Name Effective Dates (start - stop) Status Members No Information
--- OUTSIDE RECORDS SUMMARY | 2025-04-05 15:13 | XMS_ITS | Encounter Summary ---
Author Organization [place] Address [facility] [place] [address] Care Team Providers Care Gill Tender Name Role Phone Priti Morfin APRN MANAGER INSTRUMENTATION Primary Care Provide r Timothy Rice MD Unavailable [phone] Priti Morfin APRN MANAGER INSTRUMENTATION Unavailable [phone] Alvina Romano DO Unavailable Ashish [place] MD Unavailable Priti Morfin APRN MANAGER INSTRUMENTATION Unavailable [phone] Naldo Alexander MD Unavailable [phone] Ashish [place] MD Unavailable Morales Negrete MD Unavailable [phone] Shanel Guadarrama PA-C Unavailable [phone] Encounter Details Date Type Department Care Team (Late st Contact Info) Description 01/23/2025 MyC Medical Advice [facility] Internal Medicine [place] [id number] [facility] 4th [place] [address] Risa Lyman RN Social History Tobacco Use Types Packs/Day [...] re latives? Twice a week 01/15/2025 Attends Evangelical Services Not on file 01/15 Active Member of Clubs or Organizations Not on f ile 01/15/2025 Attends Club or Organization Meetings Not on mendez e 01/15/2025 Marital Status Not on file 01/15/2025 PHQ-2 Answer Date Recorded PHQ-2 Score 3 01/16/2025 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 Gender Identity Female 05/05/2022 5:57 PM CDT [...] st Contact Info) Description 07/18/2025 11:30 AM DITCH WORKER Office Visit [facility] Neurology Clinic [address] [address] Ashish [place] MD [address] [place] [id number] documented as of this encounter Visit Diagnoses Not on filedocumented in this encounter Additional Health Concerns Assessment Noted Time PHQ-9 Depression Total Score: 13 025 9:44 PM CDT documented as of this encounter Care Teams Gill Tender Relationship Specialty Start Date End Date Priti Morfin APRN MANAGER INSTRUMENTATION PCP - General 07/21/11 Timothy Rice MD Student in organized health care education/training program 05/08/15 Priti Morfin APRN MANAGER INSTRUMENTATION Nurse Practitioner Nurse Practitioner 08/19/16 [place] [address] [facility] [place] [address] Gastroenterology 04/30/19 Ashish [place] MD 420 [facility] [address] [place] [address] MD Neurology 07/17/19 Priti Morfin APRN MANAGER INSTRUMENTATION Assigned PCP 08/30/20 Naldo Alexander MD [address] [address] Gastroenterology 01/28/21 Ashish [place] MD [address] [address] Assigned Neuroscience Provider 02/04/23 Morales Negrete MD [address] [place] [address] Hospitalist Internal Medicine - Pediatrics 02/26/24 Shanel Guadarrama PA-C 420 [facility] 98 [place], [place] [address] Physician Notched Blade Loader Dermatology 03/18/24 documented as of this encounter
--- OUTSIDE RECORDS SUMMARY | 2025-04-05 15:13 | XMS_ITS | Encounter Summary ---
Author Organization [place] Address [facility] [place] [address] Care Team Providers Care Lace Tearing Supervisor Name Role Phone Priti Morfin APRN DIRECTOR ORACLE DATABASE Primary Care Provide r Timothy Rice MD Unavailable Priti Morfin APRN DIRECTOR ORACLE DATABASE Unavailable Alvina Romano DO Unavailable Ashish [place] MD Unavailable Priti Morfin APRN DIRECTOR ORACLE DATABASE Unavailable Naldo Alexander MD Unavailable Ashish [place] MD Unavailable Morales Negrete MD Unavailable Shanel Guadarrama PA-C Unavailable [phone] Encounter Details Date Type Department Care Team (Late st Contact Info) Description 02/19/2025 [facility] Only [facility] Internal Medicine [place] [address] [facility] 4th [place] [address] Priti Morfin APRN DIRECTOR ORACLE DATABASE [address] [place] [address] Social History Tobacco Use Types [...] re latives? Twice a week 01/15/2025 Attends Judaism Services Not on file 01/15 Active Member of Clubs or Organizations Not on f ile 01/15/2025 Attends Club or Organization Meetings Not on mendez e 01/15/2025 Marital Status Not on file 01/15/2025 PHQ-2 Answer Date Recorded PHQ-2 Score 3 01/16/2025 [facility] - Occupational Stress Questionnaire Answer Date [...] PM CDT Legal Sex Female 3:52 AM MEDICAL OFFICE SUPERVISOR Gender Identity Female 05/05/2022 5:57 PM CDT [...] st Contact Info) Description 07/18/2025 11:30 AM MEDICAL OFFICE SUPERVISOR Office Visit [facility] [address] [place] [address] Ashish [place] MD [address] [place] [phone] documented as of this encounter Visit Diagnoses Not on filedocumented in this encounter Additional Health Concerns Assessment Noted Time PHQ-9 Depression Total Score: 13 025 9:44 PM CDT documented as of this encounter Care Teams Lace Tearing Supervisor Relationship Specialty Start Date End Date Priti Morfin APRN DIRECTOR ORACLE DATABASE PCP - General 07/21/11 Timothy Rice MD Student in organized health care education/training program 05/08/15 Priti Morfin APRN DIRECTOR ORACLE DATABASE Nurse Practitioner Nurse Practitioner 08/19/16 [place] [address] [place] [address] Gastroenterology 04/30/19 Ashish [place] MD 420 [facility] [address] [place], [place] [address] Neurology 07/17/19 Priti Morfin APRN DIRECTOR ORACLE DATABASE Assigned PCP 08/30/20 Naldo Alexander MD 420 [facility] [address] [place] [address] Gastroenterology 01/28/21 Ashish [place] MD 420 [facility] [address] [place] [address] Assigned Neuroscience Provider 02/04/23 Morales Negrete MD [address] [place] [address] Hospitalist Internal Medicine - Pediatrics 02/26/24 Shanel Guadarrama PA-C 420 [facility] [address] [place], [place] [address] Physician Pneumatic Press Hand Dermatology 03/18/24 documented as of this encounter
--- OUTSIDE RECORDS SUMMARY | 2025-04-05 15:14 | XMS_ITS | Encounter Summary ---
Author Organization [place] Address [facility] [place] [address] Care Team Providers Care Field Director Name Role Phone Priti Morfin APRN PHYSICAL THERAPY SUPERVISOR Primary Care Provide r Timothy Rice MD Unavailable [phone] Prince [place] MD, Kathleen Unavailable Unavailab Priti Reddy APRN PHYSICAL THERAPY SUPERVISOR Unavailable [phone] Alvina Romano DO Unavailable [phone] Ashish Aguustine MD Unavailable [phone] Ashish [place] MD Unavailable Priti Morfin APRN PHYSICAL THERAPY SUPERVISOR Unavailable [phone] Naldo Alexander MD Unavailable [phone] Naldo Alexander MD Unavailable [phone] Daniel Roberto MD Unavailable [phone] Ashish [place] MD Unavailable Morales Negrete MD Unavailable [phone] Shanel Guadarrama PA-C Unavailable [phone] Encounter Details Date Type Department Care Team (Late st Contact Info) Description 10/19/2022 [facility] Gastroenterology Clinic [address] 4th [place] [address] Sonja Jean Baptiste MA Social [...] PM CDT Legal Sex Female 3:52 AM DIRECTOR RISK Gender Identity Female 05/05/2022 5:57 PM CDT [...] st Contact Info) Description 07/18/2025 11:30 AM DIRECTOR RISK Office Visit [facility] Neurology Clinic [address] [place] [address] Ashish [place] MD [address] [place] [address] documented as of this encounter Visit Diagnoses Not on filedocumented in this encounter Additional Health Concerns Assessment Noted Time PHQ-9 Depression Total Score: 6 03/26/20 19 6:35 PM CDT documented as of this encounter Care Teams Field Director Relationship Specialty Start Date End Date Priti Morfin APRN CNP PCP - General 07/21/11 Timothy Rice MD Student in organized health care education/training program 05/08/15 Jessica Morrison MD Internal Medicine 07/08/16 09/21/23 Priti Morfin APRN PHYSICAL THERAPY SUPERVISOR Nurse Practitioner Nurse Practitioner 08/19/16 [place] [address] [place] [address] Gastroenterology 04/30/19 Ashish [place] MD [address] [facility] [address] [place] [address] Neurology 07/17/19 Ashish [place] MD [address] [facility] [facility] [address] [place] [address] Assigned Neuroscience Provider 05/22/20 10/28/22 Priti Morfin APRN PHYSICAL THERAPY SUPERVISOR Assigned PCP 08/30/20 Naldo Alexander MD [address] [facility] [address] [facility] [address] [place] [address] Gastroenterology 01/28/21 Naldo Alexander MD [address] [facility] [address] [place] [address] Assigned Gastroenterology Provider 05/09/21 05/21/24 Daniel Roberto MD [address] [facility] [address] [place] [address] Assigned Surgical Provider 12/10/22 06/21/24 Ashish [place] MD 420 [facility] [address] [place], [place] [address] Assigned Neuroscience Provider 02/04/23 Morales Negrete MD 2450 [facility] [address] [place] [address] Hospitalist Internal Medicine - Pediatrics 02/26/24 Shanel Guadarrama PA-C 420 [facility] 98 [place] [address] Physician Legal Administrative Assistant Dermatology 03/18/24 documented as of this encounter
--- OUTSIDE RECORDS SUMMARY | 2025-04-05 15:14 | XMS_ITS | Clinical Summary ---
Author Organization [facility] Address [address] [place] [address] Care Team Providers Care Market Research Assistant Name Role Phone Priti Morfin WINDOW SHADE CUTTER AND MOUNTER Primary Care Provider [phone] Allergies Active Allergy Reactions Criticality Noted Date [...] on file Legal Sex Female 7:28 AM EMPLOYEE BENEFITS INSURANCE AGENT Gender Identity Not on file Sexual Orientation Not on file Obstetrics History Last Filed Vital Signs Vital Sign Reading Time Taken Comments Blood Pressure 141/83 06/23/2017 6:58 PM EMPLOYEE BENEFITS INSURANCE AGENT Pulse 64 06/23/2017 6:58 PM EMPLOYEE BENEFITS INSURANCE AGENT Temperature 36.8 C (98.3 F) 06/23/2017 6:58 PM EMPLOYEE BENEFITS INSURANCE AGENT Respiratory Rate 16 06/23/2017 6:58 PM EMPLOYEE BENEFITS INSURANCE AGENT Oxygen Saturation 98% 06/23/2017 6:58 PM EMPLOYEE BENEFITS INSURANCE AGENT Inhaled Oxygen Concentration - - Weight 63.5 kg (140 lb) 06/23/2017 6:58 PM EMPLOYEE BENEFITS INSURANCE AGENT Height 160 cm (5' 3) 06/23/2017 6:58 PM EMPLOYEE BENEFITS INSURANCE AGENT Body Mass Index 24.8 06/23/2017 6:58 PM EMPLOYEE BENEFITS INSURANCE AGENT Plan of Treatment Health Maintenance Due Date [...] COVID-19 vaccine series (1 - 2023- season) Influenza Vaccine (#1) 2025 Tetanus booster 06/23/2027 06/23/2017 RSV vaccine for adults or pr egnancy (1 - 1-dose 75+ series) 2045 Medical Devices Implanted Type Area Automobile Detailer Device Identifier Shelf Expiration Date Model / Serial / Lot [id number] hips Canclls 1.0-9.5mm Strl Freeze Dried [[id number]] Implanted:Qty: 1 on 12/25/2007 at [facility] Explanted:at [facility] (Quantity not on file) Bone Implants Spine Allosource 07/10/2012 [id number]# / [id number] / [id number] one Canclls Crushed 30cc [[id number]] Implanted:Qty: 1 on 12/25/2007 at [facility] Explanted:at [facility] (Quantity not on file) Spine Allosource 07/02/2012 [id number]# / [id number] / [id number] Precision 16x26 Fz [[id number]] Implanted:Qty: 1 on 12/25/2007 at [facility] Explanted:at [facility] (Quantity not on file) Spine RT[employer] Inc 08/30/2011 [id number]# / [id number] / Kit Infuse Sm - [id number] Implanted:Qty: 1 on 12/25/2007 at [facility] Spine SOFAMOR DANEK [id number]# / / [id number] B Screw Legacy 5.5x40 Titnm M/A [id number] - [id number] Implanted:Qty: 2 on 12/25/2007 at [facility] Spine SOFAMOR DANEK [id number]# / / Screw Legacy 6.5x35 Titnm M/A [id number] - [id number] Implanted:Qty: 2 on 12/25/2007 at [facility] Spine SOFAMOR DANEK [id number]# / / Zana 5.5x40 Prebent Cdh - [id number] Implanted:Qty: 2 on 12/25/2007 at [facility] Spine SOFAMOR DANEK [id number]# / / Screw Set Break-Off Hex Titnm - [id number] Implanted:Qty: 4 on 12/25/2007 at [facility] Spine SOFAMOR DANEK [id number]# / / Insurance MEDICARE PART A HB ONLY MEDICARE PART B HB ONLY MEDICARE PB ONLY [facility] Advance Directives * Full Code (Latest [...] 2:15 PM 07/09/2008 9:03 PM Care Teams Market Research Assistant Relationship Specialty Start Date End Date Priti Morfin NP PCP - General 05/09/08
--- OUTSIDE RECORDS SUMMARY | 2025-04-05 15:14 | XMS_ITS | Clinical Summary ---
Author Organization [facility] Address [facility] [place] [address] Care Team Providers Care Paper Mill Superintendent Name Role Phone Priti Morfin APRN FAMILY DAY CARE PROVIDER Primary Care Provide r Timothy Rice MD Unavailable Priti Morfin APRN FAMILY DAY CARE PROVIDER Unavailable Alvina Romano DO Unavailable Ashish Augustine MD Unavailable Priti Morfin APRN FAMILY DAY CARE PROVIDER Unavailable Naldo Alexander MD Unavailable Ashish Augustine MD Unavailable Morales Negrete MD Unavailable [phone] [facility] Unavailable [phone] Allergies Active Allergy Reactions Criticality Noted Date [...] Butterfly strips causes blistering and extreme itching [place] Nausea and Vomiting 06/24/2009 Pemoline Nausea 12/13/2007 Oxycodone-Acetaminophen Nausea and Vomiting 01/2012 Can take with Zofran Propoxyphene 04/30/2021 Prunus Persica Nausea and Vomiting 06/24/2009 Methylphenidate Derivatives Nausea 06/24/2009 Tegaderm Transparent Dressing (Informational Only) Blisters High 11/07/2011 Wound Dressing Adhesive 08/23/2016 Gum Zkjrnv-Vztkww-Vycn -Alcohol Medications Sodium Oxybate 500 MG/ML SOLNIndications: [...] migh t be different from the original. [email or web address] Problem Noted Date Diagnosed Date Keloid scar [...] Encounters Date Type Department Care Team Description 03/26/2025 Refill [facility] Neurology [address] [address] Ashish Augustine MD Medication Refill 03/21/2025 MyC Medical Advice [facility] Neurology [address] [address] Ashish Augustine MD 03/21/2025 MyC Medical Advice [facility] Internal Medicine [address] [address] Priti Morfin APRN FAMILY DAY CARE PROVIDER 02/19/2025 Orders Only [facility] Internal Medicine [address] [address] Priti Morfin APRN FAMILY DAY CARE PROVIDER 02/14/2025 3:45 PM CDT Office Visit [facility] Neurology [address] [address] Ashish Augustine MD Parkinsonism, unspecified Parkinsonism type (H) (Primary Dx); Dorsalgia, unspecified 02/14/2025 Travel 01/23/2025 MyC Medical Advice [facility] Internal Medicine [address] [place] [phone] Risa Lyman RN 01/22/2025 Telephone [facility] Internal Medicine [address] [place] [phone] Priti Morfin APRN CNP Medication Question; Call Back 01/17/2025 11:15 AM CDT Lab [facility] Lab [address] [place] [address] Abdominal pain, epigastric; Screening for diabetes mellitus; Screening for hyperlipidemia; Dysuria; Microscopic hematuria 01/17/2025 Results Follow-Up [facility] Internal Medicine [address] [place] [address] Priti Morfin APRN CNP Dx: Microscopic hematuria (Primary Dx) 01/16/2025 6:00 PM CDT Office Visit [facility] Internal Medicine [address] [place] [address] Priti Morfin APRN CNP Senile (atrophic) vaginitis (Primary Dx); History of Parkinson's disease; HSV (herpes simplex virus) infection; Abdominal pain, epigastric; Primary narcolepsy with cataplexy; Skin lesion; Dysuria; Anemia, unspecified type; Screening for diabetes mellitus; Screening for hyperlipidemia; Urinary tract infection associated with catheterization of urinary tract, unspecified indwelling urinary catheter type, initial encounter 01/16/2025 Travel 01/15/2025 Travel from Last 3 Months Immunizations Immunization Administration [...] re latives? Twice a week 01/15/2025 Attends [employer] Services Not on file 01/15 Active Member of Clubs or Organizations Not on f ile 01/15/2025 Attends Club or Organization Meetings Not on mendez e 01/15/2025 Marital Status Not on file 01/15/2025 PHQ-2 Answer Date Recorded PHQ-2 Score 3 01/16/2025 [facility] - Occupational Stress Questionnaire [...] in an abandoned building, in an overnight retirement, or couch-surfing.) Yes 01/15/2025 Are you worried [...] PM CDT Legal Sex Female 3:52 AM AGRICULTURAL ENGINEERING TEACHER Gender Identity Female 05/05/2022 5:57 PM CDT [...] st Contact Info) Description 07/18/2025 11:30 AM AGRICULTURAL ENGINEERING TEACHER Office Visit [facility] [address] [place] [address] Ashish Augustine MD [address] [place] [address] Health Maintenance Due Date Last Done Comments ADVANCE CARE PLANNING 1970 CT COLONOGRAPHY 1970 sDNA (Cologuard) 1970 COLONOSCOPY 1980 HEPATITIS B VACCINE (2 of 3 - 19+ 3-dose series) 08/08/2016 07/11/2016 PNEUMOCOCCAL VACCINE 50+ YEARS (1 of 1 - PCV) 2020 ZOSTER VACCINE (1 of 2) 2020 FIT 01/26/2022 01/26/2021 MEDICARE ANNUAL WELLNESS VISIT 08/31/2022 08/31/2021 COVID-19 VACCINE ( - season) 2025 INFLUENZA VACCINE (#1) 2025 ANNUAL REVIEW OF HM ORDERS 01/16/2026 01/16/2025 COLORECTAL CANCER SCREENING 09/13/2026 FLEX SIG 09/13/2026 09/13/2021, 08/31, 04/19/2021, Additional history exists DTAP/TDAP/TD VACCINE (3 - Td or Tdap) 06/23/2027 06/23/2017, 09/09/2008 DIABETES SCREENING 01/18/2028 01/17/2025, 0 01/17/2025, 01/17/2025, Additional history exists LIPID 01/17/2030 01/17/2025, 10/29, 10/25/2022 HEPATITIS C SCREENING Completed 07/11/2016, 007 HIV SCREENING Completed 06/28/2017, 06/30, 02/23/2016 HPV [...] epigastric FLEXIBLE SIGMOIDOSCOPY Routine 09/13/2021 7:43 AM AGRICULTURAL ENGINEERING TEACHER FECAL COLORECTAL CANCER SCREEN FIT Routine 01/26/2021 10:00 AM CDT Encounter for screening for malignant neoplasm of intestinal tract, unspecified Balance problems HIV ANTIGEN ANTIBODY COMBO Routine 06/28/2017 5:45 PM AGRICULTURAL ENGINEERING TEACHER Screen for STD (sexually transmitted disease) PAP IMAGED THIN LAYER SCREEN Routine 06/28/2017 4:58 PM AGRICULTURAL ENGINEERING TEACHER Encounter for gynecological examination with abnormal finding H/O hysterectomy for benign disease Screen for STD (sexually transmitted disease) HPV HIGH RISK TYPES DNA CERVICAL Routine 06/28/2017 4:40 PM AGRICULTURAL ENGINEERING TEACHER H/O hysterectomy for benign disease Screen for STD (sexually transmitted disease) HEPATITIS C ANTIBODY Routine 07/11/2016 9:24 AM AGRICULTURAL ENGINEERING TEACHER Screen for STD (sexually transmitted disease) from [...] [facility] Specific [place] Urine 1.029 1.003 - 1.035 01/17/2025 11:50 [...] Urine Culture not indicated us Priti Morfin WATER FILTERER FAMILY DAY CARE PROVIDER LAB - URINE ORDERABLE S Final Result [facility] [place] [address] [facility] 1st [place] [address] * (ABNORMAL) Lipid panel reflex to direct [...] >= 220 mg/dL us Priti Morfin APRN FAMILY DAY CARE PROVIDER LAB - BLOOD ORDERABLE S Final Result [facility] [place] [address] [place] [address] 1st [place] [address] * Hemoglobin A1c (01/17/2025 11:27 AM CDT) [...] 01/17/2025 11:27 AM CDT Priti Morfin APRN FAMILY DAY CARE PROVIDER LAB - BLOOD ORDERABLE S Final Result [facility] [address] [facility], Room [address] [id number] * (ABNORMAL) Comprehensive metabolic panel (01/17/2025 11:27 AM CDT) Pathologist [facility] Sodium 144 135 - 145 mmol/L 01/17/2025 [...] 01/17/2025 11:27 AM CDT us Priti Morfin WATER FILTERER FAMILY DAY CARE PROVIDER LAB - BLOOD ORDERABLE S Final Result [facility] [address] 1st [place] [address] * CBC with platelets (01/17/2025 11:27 AM [...] CDT 01/17/2025 11:27 AM CDT Priti Morfin WATER FILTERER FAMILY DAY CARE PROVIDER LAB - BLOOD ORDERABLE S Final Result [facility] [address] 1st [place] [address] * FLEXIBLE SIGMOIDOSCOPY (09/13/2021 7:43 AM AGRICULTURAL ENGINEERING TEACHER) [facility] [address] [place] [address] [phone] Endoscopy Department Patient Name: Ramiro Aguilera Procedure Date: 09/13/2021 7:43 AM Date of [...] Scope Out: RADIOLOGY RESULTS 09/13/2021 7:43 AM AGRICULTURAL ENGINEERING TEACHER us Priti Morfin WATER FILTERER FAMILY DAY CARE PROVIDER PROCEDURES Final Result RADIOLOGY RESULTS * (ABNORMAL) Fecal cancer screen FIT (01/26/2021 10:00 AM CDT) Pathologist [facility] Occult Blood Scn FIT Positive(A ) NEG^Negati ve 01/26/2021 9:07 PM CDT [facility] Stool 01/26/2021 10:0 0 AM CDT 01/26/2021 5:28 PM [address]T us [address] NP LAB - STOOLS ORDERABLES Final Result Performing Organization Address [facility]/ZIP Co de Phone Number [address] [address] * HIV Antigen Antibody Combo (06/28/2017 5:45 PM AGRICULTURAL ENGINEERING TEACHER) [facility] HIV Antigen Antibody Combo Nonreactive NR^Nonrea ctive 06/29/2017 9:46 AM AGRICULTURAL ENGINEERING TEACHER [facility] Comment:HIV-1 p24 Ag & HIV-1 /HIV-2 Ab Not Detected Blood specimen (specimen) 06/28/2017 5:45 PM AGRICULTURAL ENGINEERING TEACHER 06/28/2017 5:47 PM AGRICULTURAL ENGINEERING TEACHER us Jose Baumann MD LAB - BLOOD ORDERABLES Fin al Result Performing Organization Address City/[facility]/ZIP Co de Phone Number [facility] [address] [place] [address] * Pap imaged thin layer screen with HPV - recommended age 30 - 65 years (select HPV order below) (06/28/2017 4:58 PM AGRICULTURAL ENGINEERING TEACHER) PAP ROZ RAFA Cazares Report Patient Name: RAMIRO AGUILERA MR#: [id number] Specimen #: [id number] Collected: 06/28/2017 Received: 06/29/2017 Reported: 06/30/2017 16:05 [...] JUANI Musa (ASCP) Processed and screened at [facility] CLINICAL HISTORY: Complete Hysterectomy, Papanicolaou Test Limitations: Cervical cytology is a screening test with limited sensitivity; regular screening is critical for cancer prevention; Pap tests are primarily effective for the diagnosis/preventi on of squamous cell carcinoma, not adenocarcinomas or other cancers. TESTING LAB LOCATION: [facility], [address] [address] COLLECTION SITE: Client: [facility] Location: [facility] (B) [facility] Cytologic material (specimen) 06/28/2017 4:58 PM AGRICULTURAL ENGINEERING TEACHER 06/29/2017 1:15 PM AGRICULTURAL ENGINEERING TEACHER us Jose Baumann MD LAB - OPTIME CLINICAL SPEC IMEN Final Result [facility] * HPV High Risk Types DNA Cervical (06/28/2017 4:40 PM AGRICULTURAL ENGINEERING TEACHER) HPV 16 DNA Negative NEG^Nega tive 07/04/2017 7:40 AM AGRICULTURAL ENGINEERING TEACHER [facility] HPV 18 DNA Negative NEG^Nega tive 07/04/2017 7:40 AM AGRICULTURAL ENGINEERING TEACHER [facility] Other HR HPV Negative NEG^Nega tive 07/04/2017 7:40 AM AGRICULTURAL ENGINEERING TEACHER [facility] Final Diagnosis This patient's sample is negative for HPV DNA. 07/04/2017 7:40 AM AGRICULTURAL ENGINEERING TEACHER [facility] Comment: (Note) METHODOLOGY: The Arelis magui 4800 system uses automated extraction, simultaneous amplification [...] and its performance characteristics determined by the [facility], Molecular Diagnostics Laboratory. It has not been cleared or approved by the FDA. The laboratory is regulated under CLIA as qualified to perform high-complexity testing. This test is used for clinical purposes. It should not be regarded as investigational or for research. Specimen Description Cervical Cells 07/03/2017 9:43 AM AGRICULTURAL ENGINEERING TEACHER [facility] Comment:[id number] Vaginal swab (specimen) 06/28/2017 4:40 PM AGRICULTURAL ENGINEERING TEACHER 06/28/2017 5:07 PM AGRICULTURAL ENGINEERING TEACHER us Jose Baumann MD LAB - BLOOD ORDERABLES Fin al Result [facility] [address] [place] [address] * Hepatitis C antibody (07/11/2016 9:24 AM AGRICULTURAL ENGINEERING TEACHER) Hepatitis C Antibody Nonreactive Assay performance characteristics have not been established for newborns, infants, and children NR [facility] Blood specimen (specimen) 07/11/2016 9:24 AM AGRICULTURAL ENGINEERING TEACHER 07/11/2016 9:25 AM AGRICULTURAL ENGINEERING TEACHER us Jessica Simpson MD LAB - BLOOD ORDERABLES Fin al Result [facility] [address] [place] [address] from Last 3 Months or Most Recently Relevant to Health Maintenance Insurance [facility] DUAL [facility] DUAL Advance Directives For more information, please contact: [phone] * Full Code (Latest Code Status on File) Date Activated Date Inactivated Comments 12/25/2012 6:29 PM 12/26/2012 12:30 PM * Full Code Date Activated Date Inactivated Comments 11/12/2011 1:41 PM 12/25/2012 6:29 PM * Full Code Date Activated Date Inactivated Comments 11/10/2011 4:16 PM 11/12/2011 1:41 PM Care Teams Paper Mill Superintendent Relationship Specialty Start Date End Date Priti Morfin APRN FAMILY DAY CARE PROVIDER PCP - General 07/21/11 Timothy Rice MD Student in organized health care education/training program 05/08/15 Priti Morfin APRN FAMILY DAY CARE PROVIDER Nurse Practitioner Nurse Practitioner 08/19/16 [place] [address] [place] [address] Gastroenterology 04/30/19 Ashish Augustine MD [address] [place] [address] [address] [place], [place] [address] Neurology 07/17/19 Priti Morfin APRN FAMILY DAY CARE PROVIDER Assigned PCP 08/30/20 Naldo Alexander MD [address] [facility] [address] [place] [address] Gastroenterology 01/28/21 Ashish Augustine MD [address] [facility] [address] [place] [address] Assigned Neuroscience Provider 02/04/23 Morales Negrete MD [address] [place] [address] [address] [place] [address] Hospitalist Internal Medicine - Pediatrics 02/26/24 Shanel Guadarrama PA-C [address] [facility] 98 [place] [address] Physician Paint Spraying Machine Operator Helper Dermatology 03/18/24
--- OUTSIDE RECORDS SUMMARY | 2025-04-05 15:14 | XMS_ITS | Encounter Summary ---
Author Organization [place] Address [facility] [place] [address] Care Team Providers Care Cracking Still Operator Name Role Phone Priti Morfin APRN CAPACITOR TESTER Primary Care Provide r Timothy Rice MD Unavailable [phone] Priti Morfin APRN CAPACITOR TESTER Unavailable Alvina Romano DO Unavailable [phone] Ashish Augustine MD Unavailable Priti Morfin APRN CAPACITOR TESTER Unavailable Naldo Alexander MD Unavailable [phone] Ashish Augustine MD Unavailable [phone] Morales Negrete MD Unavailable [phone] PavelShanel cuellar PA-C Unavailable [phone] Encounter Details Date Type Department Care Team (Late st Contact Info) Description 03/21/2025 [facility] Internal Medicine [place] [address] [place] [address] Priti Morfin APRN CAPACITOR TESTER [address] [place] [address] Social History Tobacco Use Types [...] re latives? Twice a week 01/15/2025 Attends Christianity Services Not on file 01/15 Active Member of Clubs or Organizations Not on f ile 01/15/2025 Attends Club or Organization Meetings Not on mendez e 01/15/2025 Marital Status Not on file 01/15/2025 PHQ-2 Answer Date Recorded PHQ-2 Score 3 01/16/2025 [facility] - Occupational Stress Questionnaire Answer Date [...] in an abandoned building, in an overnight intermediate, or couch-surfing.) Yes 01/15/2025 Are you worried [...] PM CDT Legal Sex Female 3:52 AM SERVER SUPPORT TECHNICIAN Gender Identity Female 05/05/2022 5:57 PM CDT [...] st Contact Info) Description 07/18/2025 11:30 AM SERVER SUPPORT TECHNICIAN Office Visit [facility] Neurology Clinic [address] [place] [address] Ashish Augustine MD [address] [place] [address] documented as of this encounter Visit Diagnoses Not on filedocumented in this encounter Additional Health Concerns Assessment Noted Time PHQ-9 Depression Total Score: 13 025 9:44 PM CDT documented as of this encounter Care Teams Cracking Still Operator Relationship Specialty Start Date End Date Priti Morfin APRN CAPACITOR TESTER PCP - General 07/21/11 Timothy Rice MD Student in organized health care education/training program 05/08/15 Priti oMrfin APRN CAPACITOR TESTER Nurse Practitioner Nurse Practitioner 08/19/16 [place] [address] [place] [address] Gastroenterology 04/30/19 Ashish Augustine MD [address] [facility] [address] [place], [place] [address] Neurology 07/17/19 Priti Morfin APRN CAPACITOR TESTER Assigned PCP 08/30/20 Naldo Alexander MD [address] [facility] [address] [place] [address] Gastroenterology 01/28/21 Ashish Augustine MD [address] [facility] [address] [place], [place] [address] Assigned Neuroscience Provider 02/04/23 Morales Negrete MD [address] [place] [address] Hospitalist Internal Medicine - Pediatrics 02/26/24 Shanel Guadarrama PA-C [address] [facility] 98 [place], [place] [address] Physician Cooper Helper Dermatology 03/18/24 documented as of this encounter
--- OUTSIDE RECORDS SUMMARY | 2025-04-05 15:14 | XMS_ITS | Clinical Summary ---
Author Organization [facility] Address [facility] [place] [address] Care Team Providers Care Boiler Service Technician Name Role Phone Tony Canela MD Primary Care Provider [phone] Jose Diaz PA-C Unavailable [phone] Allergies Active Allergy Reactions Criticality Noted Date Comments Adhesive Tape-Silicones Rash High 09/03/2010 Other Reaction(s): Blisters Reaction from steri-strips and butterfly as well Ciprofloxacin Swelling, lips/tongue 12/05/2016 Lip swelling, arm and wrist pain Propoxyphene N-Acetaminophen 04/30/2021 Gum Qxybqh-Bzaikc-Fqoj-Alcoh ol 08/23/2016 Haloperidol Other 06/23/2017 Dopamine cezar [...] COVID-19 Vaccine ( - 2023-2 5 season) 2025 Influenza Vaccine (#1) 2025 Adult Tetanus Booster 06/23/2027 06/23/2017 , 09/09/2008 RSV Vaccines (1 - 1-dose 75+ series) 2045 Meningococcal B Vaccine Aged Out No l onger eligible based on patient's age to complete this topic Insurance MEDICARE PART A & B [place]ICAID [place] MEDICARE PART A & B [facility] Member Subscriber Plan / Payer (Ef fective 2021-Present) Name:Ramiro Aguilera Relation to Subscriber:Self Name:Ramiro Aguilera Payer ID:[id number] ([facility]) Type:[facility] Address: [address] [address] [facility] Care Teams Boiler Service Technician Relationship Specialty Start Date End Date Tony Canela MD [address] [facility] [address] [place], [place] [address] PCP - General 06/29/07 Jose Diaz, PAShamarC [address] [facility] 100 [place], [place] [address] Neurology 10/05/23
--- OUTSIDE RECORDS SUMMARY | 2025-04-05 15:14 | XMS_ITS | Encounter Summary ---
Author Organization [place] Address [facility] [place] [address] Care Team Providers Care Bung Driver Name Role Phone Priti Morfin APRN LEGAL RECORDS CLERK Primary Care Provide r Timothy Rice MD Unavailable Priti Morfin APRN LEGAL RECORDS CLERK Unavailable Alvina Romano DO Unavailable Ashish Augustine MD Unavailable Priti Morfin APRN LEGAL RECORDS CLERK Unavailable Naldo Alexander MD Unavailable [phone] Ashish Augustine MD Unavailable [phone] Morales Negrete MD Unavailable Shanel Guadarrama PA-C Unavailable [phone] Reason for Visit * Reason Comments Medication Refill Encounter Details Date Type Department Care Team (Late st Contact Info) Description [facility] [place] [address] [facility] 3rd [place] [address] Ashish Augustine MD 420 [facility] [address] [place] [address] Medication Refill Social History Tobacco Use Types Packs/Day Years [...] re latives? Twice a week 01/15/2025 Attends Roman Catholic Services Not on file 01/15 Active Member of Clubs or Organizations Not on f ile 01/15/2025 Attends Club or Organization Meetings Not on mendez e 01/15/2025 Marital Status Not on file 01/15/2025 PHQ-2 Answer Date Recorded PHQ-2 Score 3 01/16/2025 [facility] Occupat ional Health - Occupational Stress [...] in an abandoned building, in an overnight [place] [facility] [place], or couch-surfing.) Yes 01/15/2025 Are you worried [...] PM CDT Legal Sex Female 3:52 AM TISSUE INSERTER Gender Identity Female 05/05/2022 5:57 PM CDT Sexual Orientation Don't know 10/25/2022 3: 34 PM CDT Sexual Orientation Pansexual 10/25/2022 3: 34 PM CDT Occupation Industry Job Start Date Job End Date Not on file Not on file Not on file Not on file documented as of this encounter Miscellaneous Notes * Telephone Encounter - Flex Maradiaga - 03/26/2025 2:12 PM CDT Neuroscience Clinic Task Note ADDITIONAL NOTES: Please refuse; no refill needed. I do not believe the 0.5MG tablets of rasagilinewere meant to be refilled, as they have been replaced by the 1MG tablets. Rx info: Disp Refills Start End ARMANDO rasagiline (AZILECT) 0.5 MG TABS tablet 52 tablet 0 02/14/2025 03/13/2025 No Sig: Take 0.5 mg once daily for 2 weeks, then 1 mg once daily for another 2 weeks Disp Refills Start End ARMANDO rasagiline (AZILECT) 1 MG TABS tablet 90 tablet 3 03/14/2025 -- No Sig - Route: Take 1 tablet (1 mg) by mouth daily. - Oral Neurology Rx Refill Medication rasagiline (AZILECT) 0.5 MG TABS tablet Dose Last refill ordered (m/d/y) 02/14/25 Last quantity ordered 52 Last # refills 0 Last clinic visit with ordering provider (m/d/y) 02/14/25 Next clinic visit with ordering provider (m/d/y) 07/18/25 All pertinent protocol data (lab date/result) Pertinent information from patient's message FLEX MARADIAGA documented in this encounter Plan of Treatment Upcoming Encounters Date Type Department Care Team (Late st Contact Info) Description 07/18/2025 11:30 AM TISSUE INSERTER Office Visit [facility] Neurology [facility] [address] 3rd [place] [phone] Ashish Augustine MD [address] [place] [address] documented as of this encounter Visit Diagnoses Diagnosis Parkinsonism, unspecified Parkinsonism type (H) documented in this encounter Additional Health Concerns Assessment Noted Time PHQ-9 Depression Total Score: 13 025 9:44 PM CDT documented as of this encounter Care Teams Bung Driver Relationship Specialty Start Date End Date Priti Morfin APRN LEGAL RECORDS CLERK PCP - General 07/21/11 Timothy Rice MD Student in organized health care education/training program 05/08/15 Priti Morfin APRN LEGAL RECORDS CLERK Nurse Practitioner Nurse Practitioner 08/19/16 [place] [address] [place] [address] Gastroenterology 04/30/19 Ashish Augustine MD [address] [place] [address] Neurology 07/17/19 Priti Morfin APRN LEGAL RECORDS CLERK Assigned PCP 08/30/20 Naldo Alexander MD 420 [facility] [address] [place], [place] [address] Gastroenterology 01/28/21 Ashish Augustine MD 420 [facility] [address] [place], [place] [address] Assigned Neuroscience Provider 02/04/23 [place] [address] [place] [address] [address] [place], [place] [address] Hospitalist Internal Medicine - Pediatrics 02/26/24 Shnael Guadarrama PA-C 420 [facility] [address] [place] [address] Physician Structural Steel Painter Dermatology 03/18/24 documented as of this encounter
--- OUTSIDE RECORDS SUMMARY | 2025-04-05 15:14 | XMS_ITS | Encounter Summary ---
Author Organization [employer] Address [address] [place] [address]. [place] [address] Care Team Providers Care Coremaker Experimental Name Role Phone Priti Morfin FOREST FIRE MANAGEMENT OFFICER DOLL WIG HACKLER Primary Care Provide r Timothy Rice MD Unavailable [phone] Prince Simpson MD, Kathleen Unavailable Unavailab Priti Morfin APRN DOLL WIG HACKLER Unavailable [phone] Alvina Romano DO Unavailable [phone] Ashish Augustine MD Unavailable [phone] Ashish Augustine MD Unavailable Priti Morfin APRN DOLL WIG HACKLER Unavailable [phone] Naldo Alexander MD Unavailable [phone] Naldo Alexander MD Unavailable [phone] Daniel Roberto MD Unavailable [phone] Ashish Augustine MD Unavailable Morales Negrete MD Unavailable [phone] Shanel Guadarrama PA-C Unavailable [phone] Encounter Details Date Type Department Care Team (Late st Contact Info) Description 10/26/2022 [facility] Internal Medicine [place] [id number] [facility] 4th [place] [address] Priti Morfin FOREST FIRE MANAGEMENT OFFICER DOLL WIG HACKLER [address] [place] [address] Social History Tobacco Use Types Packs/Day Years Used Date Smoking Tobacco: Never Smokeless Tobacco: Former Alcohol Use Standard Drinks/Week Comments Yes 0 (1 standard drink = 0.6 oz pur e alcohol) rare PHQ-2 Answer Date Recorded PHQ-2 Score 0 01/26/2021 Comments No Sex and Gender Information Value Date Recorded Sex Assigned at Female 05/05/2022 5:57 PM CDT Legal Sex Female 3:52 AM ECOMMERCE MERCHANDISING MANAGER Gender Identity Female 05/05/2022 5:57 PM CDT [...] st Contact Info) Description 07/18/2025 11:30 AM ECOMMERCE MERCHANDISING MANAGER Office Visit [facility] Neurology Clinic [address] [phone] Ashish Augustine MD [address] [id number] documented as of this encounter Visit Diagnoses Not on filedocumented in this encounter Additional Health Concerns Assessment Noted Time PHQ-9 Depression Total Score: 6 03/26/20 19 6:35 PM CDT documented as of this encounter Care Teams Coremaker Experimental Relationship Specialty Start Date End Date Priti Morfin APRN DOLL WIG HACKLER PCP - General 07/21/11 Timothy Rice MD Student in organized health care education/training program 05/08/15 Jessica Morrison MD Internal Medicine 07/08/16 09/21/23 Priti Morfin APRN DOLL WIG HACKLER Nurse Practitioner Nurse Practitioner 08/19/16 [place] [address] [place] [address] Gastroenterology 04/30/19 Ashish Augustine MD [address] [address] MD Neurology 07/17/19 Ashish Augustine MD [address] [address] Assigned Neuroscience Provider 05/22/20 10/28/22 Priti Morfin APRN DOLL WIG HACKLER Assigned PCP 08/30/20 Naldo Alexander MD 420 [facility] [address] [place] [address] Gastroenterology 01/28/21 Naldo Alexander MD 420 [facility] [address] [place] [address] Assigned Gastroenterology Provider 05/09/21 05/21/24 Daniel Roberto MD [address] [address] Assigned Surgical Provider 12/10/22 06/21/24 Ashish Augustine MD [address] [address] Assigned Neuroscience Provider 02/04/23 Morales Negrete MD [address] [place] [address] [place], [place] [address] Hospitalist Internal Medicine - Pediatrics 02/26/24 Shanel Guadarrama PA-C [address] [place] [address] Physician Urban Sociologist Dermatology 03/18/24 documented as of this encounter
--- OUTSIDE RECORDS SUMMARY | 2025-04-05 15:14 | XMS_ITS | Encounter Summary ---
Author Organization [place] Address [address] [place] [address]. [place] [address] Care Team Providers Care Marketing Programs Specialist Name Role Phone Priti Morfin APRN CANTEEN MANAGER Primary Care Provide r Timothy Rice MD Unavailable [phone] Prince Simpson MD, Kathleen Unavailable Unavailab Priti Reddy APRN CANTEEN MANAGER Unavailable [phone] Alvina Romano DO Unavailable [phone] Ashish Augustine MD Unavailable [phone] Ashish Augustine MD Unavailable Priti Morfin APRN CANTEEN MANAGER Unavailable [phone] Naldo Alexander MD Unavailable [phone] Naldo Alexander MD Unavailable [phone] Daniel Roberto MD Unavailable [phone] Ashish Augustine MD Unavailable Morales Negrete MD Unavailable [phone] Shanel Guadarrama PA-C Unavailable [phone] Encounter Details Date Type Department Care Team (Late st Contact Info) Description 06/10/2022 [facility] [address] 5th [place] [address] Jolene Parrish CMA Social History [...] PM CDT Legal Sex Female 3:52 AM LIFE ENRICHMENT SPECIALIST Gender Identity Female 05/05/2022 5:57 PM CDT [...] Coronavirus/COVID-19? No / Unsure 06/13/2022 12:17 PM LIFE ENRICHMENT SPECIALIST documented as of this encounter Plan of Treatment Upcoming Encounters Date Type Department Care Team (Late st Contact Info) Description 07/18/2025 11:30 AM LIFE ENRICHMENT SPECIALIST Office Visit [facility] Neurology Clinic [address]rd [place] [address] Ashish Augustine MD [address] [place] [address] documented as of this encounter Visit Diagnoses Not on filedocumented in this encounter Additional Health Concerns Assessment Noted Time PHQ-9 Depression Total Score: 6 03/26/20 19 6:35 PM CDT documented as of this encounter Care Teams Marketing Programs Specialist Relationship Specialty Start Date End Date Priti Morfin APRN CANTEEN MANAGER PCP - General 07/21/11 Timothy Rice MD Student in organized health care education/training program 05/08/15 Jessica Morrison MD Internal Medicine 07/08/16 09/21/23 Priti Morfin APRN CANTEEN MANAGER Nurse Practitioner Nurse Practitioner 08/19/16 [place] [address] [place] [address] Gastroenterology 04/30/19 Ashish Augustine MD [address] [facility] [address] [place] [address] Neurology 07/17/19 Ashish Augustine MD [address] [facility] [address] [place] [address] Assigned Neuroscience Provider 05/22/20 10/28/22 Priti Morfin APRN CANTEEN MANAGER Assigned PCP 08/30/20 Naldo Alexander MD [address] [facility] [address] [place] [address] Gastroenterology 01/28/21 Naldo Alexander MD [address] [facility] [address] [place] [address] Assigned Gastroenterology Provider 05/09/21 05/21/24 Daniel Roberto MD [address] [facility] [address] [place] [address] Assigned Surgical Provider 12/10/22 06/21/24 Ashish Augustine MD 420 [facility] [address] [place], [place] [address] Assigned Neuroscience Provider 02/04/23 Morales Negrete MD 2450 [facility] [address] [place], [place] [address] Hospitalist Internal Medicine - Pediatrics 02/26/24 Shanle Guadarrama PA-C 420 [facility] 98 [place], [place] [address] Physician Facility Service Associate Dermatology 03/18/24 documented as of this encounter
--- OUTSIDE RECORDS SUMMARY | 2025-04-05 15:14 | XMS_ITS | Encounter Summary ---
Author Organization [place] Address [facility] [place] [address] Care Team Providers Care Allergist Name Role Phone Priti Morfin APRN HOUSE FURNISHINGS SUPERVISOR Primary Care Provide r Timothy Rice MD Unavailable [phone] Priti Morfin APRN HOUSE FURNISHINGS SUPERVISOR Unavailable [phone] Alvina oRmano DO Unavailable [phone] Ashish Augustine MD Unavailable Priti Morfin APRN HOUSE FURNISHINGS SUPERVISOR Unavailable [phone] Naldo Alexander MD Unavailable Ashish Augustine MD Unavailable Morales Negrete MD Unavailable [phone] Shanel Guadarrama PA-C Unavailable [phone] Encounter Details Date Type Department Care Team (Late st Contact Info) Description 03/21/[address] [facility] Neurology Clinic [place] [address] [facility] 3rd [place] [address] Ashish Augustine MD [address] [place] [address] 486 [place] [address] Social History Tobacco Use Types [...] re latives? Twice a week 01/15/2025 Attends Scientology Services Not on file 01/15 Active Member of Clubs or Organizations Not on f ile 01/15/2025 Attends Club or Organization Meetings Not on mendez e 01/15/2025 Marital Status Not on file 01/15/2025 PHQ-2 Answer Date Recorded PHQ-2 Score 3 01/16/2025 [facility] of Occupat ional Health - [...] PM CDT Legal Sex Female 3:52 AM CHARGE ENTRY CLERK Gender Identity Female 05/05/2022 5:57 PM CDT [...] st Contact Info) Description 07/18/2025 11:30 AM CHARGE ENTRY CLERK Office Visit [facility] Neurology Clinic [address] [place] [address] Ashish Augustine MD [address] [place] [id number] documented as of this encounter Visit Diagnoses Not on filedocumented in this encounter Additional Health Concerns Assessment Noted Time PHQ-9 Depression Total Score: 13 025 9:44 PM CDT documented as of this encounter Care Teams Allergist Relationship Specialty Start Date End Date Priti Morfin APRN HOUSE FURNISHINGS SUPERVISOR PCP - General 07/21/11 Timothy Rice MD Student in organized health care education/training program 05/08/15 Priti Morfin APRN HOUSE FURNISHINGS SUPERVISOR Nurse Practitioner Nurse Practitioner 08/19/16 [place] [address] [place] [address] Gastroenterology 04/30/19 Ashish Augustine MD 420 [facility] 486 [place], [place] [address] Neurology 07/17/19 Priti Morfin APRN HOUSE FURNISHINGS SUPERVISOR Assigned PCP 08/30/20 Naldo Alexander MD [address] [place] [address] 486 [place] [address] Gastroenterology 01/28/21 Ashish Augustine MD [address] [place] [address] 486 [place] [address] Assigned Neuroscience Provider 02/04/23 Morales Negrete MD [address] [place] [address] Hospitalist Internal Medicine - Pediatrics 02/26/24 Shanel Guadarrama PA-C 420 [facility] 98 [place] [address] Physician Audio Visual Equipment Rental Clerk Dermatology 03/18/24 documented as of this encounter
--- OUTSIDE RECORDS SUMMARY | 2025-04-05 15:14 | XMS_ITS | Encounter Summary ---
Author Organization [place] Address [address] [place] [address]. [place] [address] Care Team Providers Care Nylon Winder Name Role Phone Priti Morfin APRN CLUB MANAGER Primary Care Provide r Timothy Rice MD Unavailable [phone] Prince Simpson MD, Kathleen Unavailable Unavailab Priti Reddy APRN CLUB MANAGER Unavailable [phone] Alvina Romano DO Unavailable [phone] Ashish Augustine MD Unavailable Ashish Augustine MD Unavailable Priti Morfin APRN CLUB MANAGER Unavailable [phone] Naldo Alexander MD Unavailable [phone] Naldo Alexander MD Unavailable [phone] Daniel Roberto MD Unavailable [phone] Ashish Augustine MD Unavailable Morales Negrete MD Unavailable [phone] Shanel Guadarrama PA-C Unavailable [phone] Encounter Details Date Type Department Care Team (Late st Contact Info) Description 10/17/[address] [facility] Neurology Clinic [address] 3rd [place] [address] Jesica Petersen, RN Social History [...] PM CDT Legal Sex Female 3:52 AM KNUCKLE BENDER Gender Identity Female 05/05/2022 5:57 PM CDT [...] st Contact Info) Description 07/18/2025 11:30 AM KNUCKLE BENDER Office Visit [facility] Neurology Clinic [address] [place] [address] Ashish Augustine MD [address] [place] [address] documented as of this encounter Visit Diagnoses Not on filedocumented in this encounter Additional Health Concerns Assessment Noted Time PHQ-9 Depression Total Score: 6 03/26/20 19 6:35 PM CDT documented as of this encounter Care Teams Nylon Winder Relationship Specialty Start Date End Date Priti Morfin APRN CLUB MANAGER PCP - General 07/21/11 Timothy Rice MD Student in organized health care education/training program 05/08/15 Jessica Morrison MD Internal Medicine 07/08/16 09/21/23 Priti Morfin APRN CLUB MANAGER Nurse Practitioner Nurse Practitioner 08/19/16 [place] [address] [place] [address] Gastroenterology 04/30/19 Ashish Augustine MD [address] [facility] [address] [place] [address] Neurology 07/17/19 Ashish Augustine MD [address] [facility] [address] [place] [address] Assigned Neuroscience Provider 05/22/20 10/28/22 Priti Morfin APRN CLUB MANAGER Assigned PCP 08/30/20 Naldo Alexander MD [address] [facility] [address] [place] [address] Gastroenterology 01/28/21 Naldo Alexander MD [address] [facility] [address] [place] [address] Assigned Gastroenterology Provider 05/09/21 05/21/24 Daniel Roberto MD [address] [place] [address] [facility] [address] [place] [address] Assigned Surgical Provider 12/10/22 06/21/24 Ashish Augustine MD 420 [facility] [address] [place], [place] [address] Assigned Neuroscience Provider 02/04/23 Morales Negrete MD 2450 [facility] [address] [place], [place] [address] Hospitalist Internal Medicine - Pediatrics 02/26/24 Shanel Guadarrama PA-C 420 [facility] 98 [place], [place] [address] Physician Activity Therapy Specialist Dermatology 03/18/24 documented as of this encounter
--- OUTSIDE RECORDS SUMMARY | 2025-04-05 15:14 | XMS_ITS | CCD ---
Author Name Interface, [id number] lity Address [address] [place], [place] [id number] [facility] Oncology Address [address] [place] [address] Reason for Visit Social History Date Name Value Sex Female
[2025-04-05 15:32] VITALS: BP 137/73; PULSE 78; RESP 14; TEMP 36.9; O2SAT 95; BMI 21.0
--- OUTSIDE RECORDS SUMMARY | 2025-04-05 16:13 | XMS_ITS | CCD ---
Author Organization Unknown Care Team Providers Care Counter Intelligence Technician Name Role Phone [employer] [place], [place] Primary Care Provider Unava ilable Unavailable Chronic Care Management Unavaila ble Summary Purpose DataExchange Insurance Providers Payer name Policy type / Coverage type Covered democrat ID Effective Begin Date Effective End Date [employer] Medicare Risk [id number] Unknown Medicaid [facility] Medicare Risk [id number] Unknow n Family History Family History data not found Medication Administered No Medication Administered data Reason For Visit No Reason For Visit data
--- NOTE | 2025-04-05 18:39 | ED.GENADULT ---
HPI - General Adult General Chief complaint: Skin/Abscess/Foreign Body Stated complaint: Rash Behind knees Time Seen by Provider: 04/05/25 18:38 History of Present Illness HPI narrative: Patient reports being seen here for rash on back of both knees. Was given prednisone and this initially made area better however areas are not back. 54-year-old woman presenting to the emergency department with concern of continued rash on the back of both of knees. Was seen initially 12 days ago in this emergency department initiated on a course of prednisone. The only exposure identified at that time was that she had been doing some hamstring curls in the gym and this bar had been up against the back of her knees. Had been treating with antibiotic ointment when 1st seen. There was some question of contact dermatitis with consideration of vasculitis or platelet disorder. Labs were reassuring. She does feel she improved somewhat with the prednisone which was on a taper for 11 days. Admittedly now it is not particularly bothersome. She feels of little sense of fullness in the upper calves probably right greater than left. Might be occasionally itchy. After longer conversation, questioning it appears that is concerned at this time also of potential deep venous thrombus after research. She is not having any chest pain or shortness of breath. Not with particular swelling of the lower extremities. Related Data Home Medications ?Medication ?Instructions ?Recorded ?Confirmed carbidopa 25 mg-levodopa 100 mg 1 tab PO QID 04/02/23 04/05/25 tablet dicyclomine 10 mg capsule 10 mg PO Q6H PRN 04/02/23 04/02/23 ferrous sulfate 325 mg (65 mg 325 mg PO DAILY 04/02/23 04/02/23 iron) tablet,delayed release pantoprazole 40 mg tablet,delayed 40 mg PO DAILY 04/02/23 04/05/25 release sertraline 100 mg tablet 100 mg PO DAILY 04/02/23 04/05/25 Previous Rx's ?Medication ?Instructions ?Recorded ketorolac 0.4 % eye drops 1 drp ophthalmic (eye) QID #5 mL 02/02/24 polymyxin B sulfate 10,000 1 drp ophthalmic (eye) Q3H 7 days 02/02/24 unit-trimethoprim 1 mg/mL eye drops #10 mL hydrocortisone 2.5 % topical cream 1 applic topical BID PRN #20 grams 04/05/25 Allergies Allergy/AdvReac Type Severity Reaction Status Date / Time methylphenidate (From Allergy Mild Verified 04/05/25 15:31 Ritalin) pemoline (From Cylert) Allergy Mild Vomiting Verified 04/05/25 15:31 haldol AdvReac Unknown parkinsons Uncoded 04/02/23 17:47 pt Review of Systems Status of ROS: Reports: 6 or more systems reviewed and unremarkable except as noted in History and below PFSH PFS Social History Smoking Status: Never smoker Do you use any of these nicotine containing products: None Second hand tobacco smoke exposure: Yes How often do you have a drink containing alcohol: monthly or less How many standard drinks containing alcohol do you have on a typical day: 1 or 2 How often do you have six or more drinks on one occasion: Never AUDIT-C Alcohol total score: 1 Non-prescribed substance use: denies use service: No Exam Narrative: Exam Narrative: Pleasant. NAD. Slightly blunted affect consistent with Parkinson's. She is here with a cane. Moves well but hesitantly. Breathing easily. No stridor. No other concerning rashes appreciated. Lungs appear clear. Heart in regular rate. Evaluation of the lower extremities that showed triangular subtly purple blanchable patch behind the right knee and a little more laterally behind the left knee. I do not appreciate any calor or significant erythema. No indication of excoriation. I do not appreciate edema of the lower extremities. Calves are well muscled right a little more than the left. Negative Homans. Const: Vital Signs, click to edit/add: Vital Signs - 24 hr 04/05/25 15:32 Temperature 98.4 F Pulse Rate [Pulse Oximeter] 78 Respiratory Rate 14 Blood Pressure [Ri ght Upper Arm] 137/73 Pulse Oximetry 95 Oxygen Delivery Me thod Room Air Documenting provider has reviewed patient's vital signs: yes Course Vital Signs Vital signs: Initial Vital Signs Temperature 98.4 F 04/05/25 15:32 Temperature Source Temporal Artery Scan 04/05/25 15:32 Pulse Rate 78 04/05/25 15:32 Respiratory Rate 14 04/05/25 15:32 Blood Pressure 137/73 04/05/25 15:32 Blood Pressure Mean 94 04/05/25 15:32 Pulse Oximetry 95 04/05/25 15:32 Oxygen Delivery Method Room Air 04/05/25 15:32 Vital Signs Temperature 98.4 F 04/05/25 15:32 Pulse Rate 78 04/05/25 15:32 Respiratory Rate 14 04/05/25 15:32 Blood Pressure 137/73 04/05/25 15:32 Pulse Oximetry 95 04/05/25 15:32 Oxygen Delivery Method Room Air 04/05/25 15:32 Temperature 98.4 F 04/05/25 15:32 Pulse Rate 78 04/05/25 15:32 Respiratory Rate 14 04/05/25 15:32 Blood Pressure 137/73 04/05/25 15:32 Pulse Oximetry 95 04/05/25 15:32 Oxygen Delivery Method Room Air 04/05/25 15:32 Medical Decision Making MDM Narrative Medical decision making narrative: She does not seem bothered by this in particular. Question is raised about continuing prednisone but I do not see inflammatory changes to warrant that. I think this is more likely ecchymotic change that has lingered. Probably injury occurred from direct/contact trauma at the gym. With concerns though I did return to the emergency department with point of care ultrasound. I did apply probe over back of both legs from distal thigh through the ankle. I am unable to find any noncompressible vasculature during this exam. With this evaluation and lack of edema and lack of distal symptoms/pain otherwise I think is very unlikely there is any clot here. I would say that there was some venous prominence on the posterior lateral aspect left knee in the center of this slightly purple old patch; maybe a varicose vein. No cords palpable. I do not know that any further treatment really is indicated. Would consider maybe topical steroid if finding there is some irritation/itch but not really enough inflammation here for oral treatment. Soothing salves might be a better option. Certainly no evidence of infection. No expansion of this rash elsewhere on her body to suggest more systemic issue. See patient discharge plan for further discussion If it appears itchy otherwise irritated you might try the hydrocortisone cream but I would not use it more than 1 week. Can apply a couple of times daily. Might alternate between warm packs and cold packs otherwise. Be seen for similar appearing lesions appearing elsewhere on your body, marked increase in pain or swelling about your knee or lower leg. Discharge Plan Discharge Clinical Impression: Ecchymosis Patient Disposition: Home, Self-Care Condition: Improved Instructions: Ecchymosis (ED) Additional Instructions: If it appears itchy otherwise irritated you might try the hydrocortisone cream but I would not use it more than 1 week. Can apply a couple of times daily. Might alternate between warm packs and cold packs otherwise. Be seen for similar appearing lesions appearing elsewhere on your body, marked increase in pain or swelling about your knee or lower leg. Prescriptions: New hydrocortisone 2.5 % cream 1 applic topical BID PRNQty: 20 0RF No Action sertraline 100 mg tablet 100 mg PO DAILY pantoprazole 40 mg tablet,delayed release (DR/EC) 40 mg PO DAILY ferrous sulfate 325 mg (65 mg iron) tablet,delayed release (DR/EC) 325 mg PO DAILY carbidopa-levodopa 25-100 mg tablet 1 tab PO QID dicyclomine 10 mg capsule 10 mg PO Q6H PRN polymyxin B sulf-trimethoprim 10,000 unit- 1 mg/mL drops 1 drp ophthalmic (eye) Q3H 7 Days Qty: 10 0RF Rx Instructions: while awake; do not exceed 6 doses in 24 hours ketorolac 0.4 % drops 1 drp ophthalmic (eye) QID Qty: 5 0RF Follow Up/Referrals: Provider,Not a Local [Primary Care Provider, Family Practice] [facility]one [facility] Inst[facility]
--- OUTSIDE RECORDS SUMMARY | 2025-04-05 20:14 | XMS_ITS | CCD ---
Author Organization Unknown Care Team Providers Care Machine Clothing Replacer Name Role Phone [employer], [place] Primary Care Provider Unava ilable Unavailable Chronic Care Management Unavaila ble Summary Purpose DataExchange Insurance Providers Payer name Policy type / Coverage type Covered green party ID Effective Begin Date Effective End Date Ucare [facility] Medicare Risk [id number] Unknown Medicaid [facility] Medicare Risk [id number] Unknow n Family History Family History data not found Medication Administered No Medication Administered data Reason For Visit No Reason For Visit data
--- OUTSIDE RECORDS SUMMARY | 2025-04-05 20:14 | XMS_ITS | CCD ---
Author Organization Unknown Care Team Providers Care Data Operations Manager Name Role Phone [employer], [place] Primary Care Provider Unava ilable Unavailable Chronic Care Management Unavaila ble Summary Purpose DataExchange Insurance Providers Payer name Policy type / Coverage type Covered constitution party ID Effective Begin Date Effective End Date Ucare [facility] [place] Medicare Risk [id number] Unknown Medicaid [facility] Medicare Risk [id number] Unknow n Family History Family History data not found Medication Administered No Medication Administered data Reason For Visit No Reason For Visit data
== END 2025-04-05 19:38 | disposition home or self-care (01) ==
PROVIDERS: Emergency Provider Family Medicine
DX: R58 Hemorrhage, not elsewhere classified (principal)
CPT/HCPCS: 99281; 99283; 99284